=== PATIENT | female | born 1940 | race Caucasian/White ===

== ENCOUNTER 2018-11-19 11:26 | Inpatient (IN) | payer OTHER ==
--- OUTSIDE RECORDS SUMMARY | 2018-11-19 11:32 | XMS REPORT | Continuity of Care Document ---
:1940 Author Organization Interface Problems Problem Status Onset Classification Date Comments Source Date Reported WEAKNESS Active 10/14/[address] WEAKNESS, ORAL Active 10/14/[address] NEUROGENIC Active 08/08/20 [facility] BLADDER 16 F/U Active 10/13/20 [facility] 15 DC F/U Active 10/26/20 [facility] 14 CVA Active 09/21/20 14 [facility] LYLE Active 09/21/20 [facility] [address] URINARY Active 09/21/20 [facility] RETENTION/NEUROG 14 ENIC BLADDER NEUROGENIC Active 09/21/20 [facility] BLADDER/RECURREN 14 T UTI DVT - Deep vein Resolved 10/27/19 Problem 09/11/2017 As per thrombosis<sup>1 01 daughter, pt [facility], </sup> was on [place] experimental Covocative drugs and 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 Gait abnormality Active Problem 09/11/2017 [facility] Abnormal gait Active Problem 09/11/2017 [facility] Afib Resolved Problem 09/11/2017 [facility] Breast cancer Resolved Problem 09/11/2017 [facility] Diabetes Active Problem 09/11/2017 [facility] Fracture<sup>2</ Resolved Problem 09/11/2017 Pt's daughter MH sup> reports that [facility], pt twisted [place] ankle and Medical fractured it Center and fell and fractured wrist. Hypertension Active Problem 09/11/2017 [facility] Neurogenic Active Problem 09/11/2017 [facility] bladder Pneumonia Resolved Problem 09/11/2017 [facility] Pulmonary emboli Resolved Problem 09/11/2017 [facility] Shingles Resolved Problem 09/11/2017 [facility] CVA Active [facility], [facility] FOLLOW-UP EXAM Active [facility] NOS ENCNTR FOR F/U Active [facility] EXAM AFT TRTMT FOR COND O ANOXIC BRAIN Active [facility] DAMAGE, NOT ELSEWHERE CLASS INTCRAN INJ W/O Active [facility] LOSS OF CONSCIOUSNESS, I NEUROMUSCULAR Active [facility] DYSFUNCTION OF BLADDER, UN MALIGNANT Active [place] NEOPLASM OF Medical MOUTH, Center UNSPECIFIED Medications Medication Details Route Status Patient Ordering Order Source Instructions Provider Date Humalog SUB-Q, 0 Active [facility] Refill(s) 2015 Home Medication Refill(s) 0 Active [facility] 2016 NovoLOG 70/30 60 units in am Active [facility] and 40 units at 2016 night, SUB-Q, BID, 0 Refill(s) levothyroxine 88 88 microgram=1 Active [facility] mcg (0.088 mg) tab, PO, Daily, 2016 oral tablet # 30 tab, 0 Refill(s) Unknown Home pro biotic 1 cap Active [facility] Medication bid, Refill(s) 2014 0Special Instructions: pro biotic 1 cap bid [place] oral 1 cap, PO, Active [facility] capsule Daily, 0 2014 Refill(s) Hydralazine 25 mg=1 tab, PO, Active [facility] Hydrochloride 25 PRN, # 120 tab, 2015 MG Oral Tablet 0 Refill(s) Miralax 17 gm, PO, Active [facility] Daily, 0 2014 Refill(s) atorvastatin 10 10 mg=1 tab, PO, Active [facility] mg oral tablet Bedtime, # 30 2015 tab, 0 Refill(s) rivaroxaban 20 20 mg=1 tab, PO, Active [facility] MG Oral Tablet QPM, 0 Refill(s) 2014 [Xarelto] lisinopril 30 mg 30 mg=1 tab, PO, Active [facility] oral tablet Daily, # 30 tab, 2015 0 Refill(s) Levemir 45 Units, SUB-Q, Active [facility] 0 Refill(s) 2014 pantoprazole 40 =1 Pack, PO, Active [facility] MG Granules Daily, # 30 ea, 2015 [Protonix] 0 Refill(s) Omnipaque 300 100 mL, Route: Inactive [facility] Intravesical, 2014 Drug Form: SOLN, ONCE, Start date: 01/16/15 14:15:00, Stop date: 01/16/15 14:15:00Notes: (Same as:Omnipaque 300). Amoxicillin 250 250 mg tab, PO, Active [facility] MG / Clavulanate Daily, # 21 tab, 2015 125 MG Oral 0 Refill(s) Tablet [Augmentin 250-mg] sertraline 25 mg 25 mg=1 tab, PO, Active [facility] oral tablet Daily, # 30 tab, 2015 0 Refill(s) amantadine 50 50 mg=5 ml, PO, Active [facility] mg/5 mL oral Daily, # 140 ml, 2015 syrup 0 Refill(s) 3 ML liraglutide 0 Refill(s) Active [facility] 6 MG/ML 2015 Prefilled Syringe [Victoza] Miralax 17 gm, PEG, Active [facility] Daily, 0 2014 Refill(s) rivaroxaban 20 20 mg=1 tab, On Hold [place] mg oral tablet PEG, QPM, # 30 2014 Medical tab, 0 Refill(s) Center metoprolol 50 mg=1 tab, On Hold [place] tartrate 50 mg PEG, Q12H, # 60 2014 Medical oral tablet tab, 0 Refill(s) Center lisinopril 20 mg 20 mg=1 tab, On Hold [place] oral tablet PEG, Daily, # 30 2014 Medical tab, 0 Refill(s) Center atorvastatin 10 10 mg=1 tab, On Hold [place] mg oral tablet PEG, Bedtime, # 2014 Medical 30 tab, 0 Center Refill(s) fluconazole 40 200 mg=5 mL, On Hold [place] mg/mL oral PEG, [id number], # 2014 Medical liquid 40 mL, 0 Center Refill(s) bisacodyl 10 mg 10 mg=1 supp, On Hold [place] rectal AR, Daily, 2014 Medical suppository Constipation, 0 Center Refill(s) Docusate Sodium 100 mg=10 mL, On Hold [place] 10 MG/ML Oral GT, Q12H, 2014 Medical Solution Constipation, 0 Center Refill(s) Acetaminophen 650 mg=20.3 mL, On Hold [facility] OGT, Q6H, For 2014 Medical Temp > 100.4 F, Center 0 Refill(s) Albuterol 0.833 3 mL, On Hold [facility] MG/ML / INHALATION, Q6H, 2014 Medical Ipratropium Respiratory Center [place] 0.167 Protocol, 0 MG/ML Inhalant Refill(s) Solution [DuoNeb] levothyroxine 112 microgram=1 On Hold [facility] 112 mcg (0.112 tab, PEG, Daily, 2013 Medical mg) oral tablet 0 Refill(s) Center Sodium Chloride 0.09 gm=3 mL, On Hold [facility] 3% inhalation NEB, RQ6H, 0 2013 Medical solution Refill(s) Center Insulin Aspart See Special On Hold [place] 100 unit/ml - Instructions, 2013 Medical (High CD) SUB-Q, Center TID-Before Meals, Check blood sugar before breakfast, lunch, and dinner, and inject correction doses: Inject 3 unit if Sugar 150-199, Inject 6 units if Sugar 200-249, Inject 9 units if Sugar 250-299, Inject 12 units if...Special Instructions: Check blood sugar before breakfast, lunch, and dinner, and inject correction doses: Inject 3 unit if Sugar 150-199, Inject 6 units if Sugar 200-249, Inject 9 units if Sugar 250-299, Inject 12 units if Sugar 300-349, Inject 15 units if Sugar is 350 or more insulin isophane 43 unit, SUB-Q, On Hold [facility] human Q8H, # 1 vial, 0 2013 Medical recombinant 100 Refill(s) Center units/mL subcutaneous injection NPH Insulin, 42 unit, 0.42 Inactive [facility] Pork mL, Route: 2013 Medical SUB-Q, Drug Center form: INJ, Q8H, Dosing Weight 74.2, kg, Start date: 10/05/14 0:00:00, Duration: 14 day, Stop date: 10/18/14 16:00:00Notes: Roll in palms of hands gently; Do not shake vigorously. (Same as: Humulin N) Do not hold insulin without contacting prescriber (Restricted to patients requiring a dose > 60 units) Stable for 28 days at room temperature Expires in days from Da te Docusate 100 mg, 10 mL, No Longer [facility] Route: GT, Drug Active 2013 Medical form: LIQ, Q12H, Center Dosing Weight 74.2, kg, PRN Constipation, Start date: 10/03/14 22:03:46, Stop date: 10/22/14 9:00:00Notes: (Same as: Colace) Insulin, Aspart, 5 unit, 0.05 mL, No Longer [facility] Human Route: SUB-Q, Active 2013 Medical Drug form: SOLN, Center Sliding Scale, Dosing Weight 74.2, kg, PRN Blood Glucose Results, Start date: 10/02/14 17:59:00, Duration: 30 day, Stop date: 11/01/14 17:58:00Notes: Roll in palms of hands gently; Do not shake vigorously. (Same as: NovoLOG) "single patient use only" Stable for 28 days at room temperature. Expires in days from Da te Glucagon 1 mg, Route: IM, No Longer [facility] Drug form: Active 2013 Medical PDR/INJ, PRN, Center Dosing Weight 74.2, kg, PRN Blood Glucose Results, Start date: 10/02/14 17:59:00, Duration: 30 day, Stop date: 11/01/14 17:58:00 Dextrose 50% 25 gm, 50 mL, No Longer [facility] Syringe Route: IVP, Drug Active 2013 Medical Form: INJ, Center Dosing Weight 74.2, kg, PRN, PRN Blood Glucose Results, Start date: 10/02/14 17:59:00, Duration: 30 day, Stop date: 11/01/14 17:58:00 Lisinopril 20 mg, 1 tab, No Longer [facility] Route: PO, Drug Active 2013 Medical form: TAB, Center Daily, Dosing Weight 74.2, kg, Start date: 10/02/14 9:00:00, Duration: 30 day, Stop date: 10/31/14 9:00:00Notes: (Same as: Prinivil, Zestril) Thyroxine 112 microgram, 1 No Longer [facility] tab, Route: PO, Active 2013 Medical Drug form: TAB, Center Daily, Dosing Weight 74.2, kg, Start date: 10/01/14 9:00:00, Duration: 30 day, Stop date: 10/30/14 9:00:00Notes: Take 1 hour before or 2 hours after meal; Enteral feeds may interefere with the absorption of this medication.(Same as:Levothroid) Insulin, Aspart, 9 unit, 0.09 mL, No Longer [facility] Human Route: SUB-Q, Active 2013 Medical Drug form: SOLN, Center Sliding Scale, Dosing Weight 74.2, kg, PRN Blood Glucose Results, Start date: 09/30/14 21:12:00, Duration: 30 day, Stop date: 10/30/14 21:11:00Notes: Roll in palms of hands gently; Do not shake vigorously. (Same as: NovoLOG) "single patient use only" Stable for 28 days at room temperature. Expires in days from Da te Dextrose 50% 12.5 gm, 25 mL, No Longer [facility] Syringe Route: IVP, Drug Active 2013 Medical Form: INJ, Center Dosing Weight 74.2, kg, PRN, PRN Blood Glucose Results, Start date: 09/30/14 21:12:00, Duration: 30 day, Stop date: 10/30/14 21:11:00 Glucagon 1 mg, Route: IM, No Longer [facility] Drug form: Active 2013 Medical PDR/INJ, PRN, Center Dosing Weight 74.2, kg, PRN Blood Glucose Results, Start date: 09/30/14 21:12:00, Duration: 30 day, Stop date: 10/30/14 21:11:00 Fluconazole 200 mg, 5 mL, No Longer 10/01[facility] Route: PEG, Drug Active 2013 Medical form: SUSP, Center [id number], Dosing Weight 74.2, kg, Start date: 09/30/14 21:00:00, Duration: 7 day, Stop date: 10/06/14 21:00:00Notes: (Same as: Diflucan) Lisinopril 10 mg, 1 tab, No Longer [facility] Route: PO, Drug Active 2013 Medical form: TAB, Center Daily, Dosing Weight 74.2, kg, Start date: 09/30/14 18:00:00, Duration: 30 day, Stop date: 10/30/14 9:00:00Notes: (Same as: Prinivil, Zestril) metoprolol 50 mg, 1 tab, No Longer [facility] tartrate Route: PO, Drug Active 2013 Medical form: TAB, Q12H, Center Dosing Weight 74.2, kg, Start date: 09/30/14 18:00:00, Duration: 30 day, Stop date: 10/30/14 9:00:00Notes: (Same as: Lopressor) Xarelto 20 mg, 1 tab, No Longer [facility] Route: PO, Drug Active 2013 Medical form: TAB, QPM, Center Dosing Weight 74.2, kg, Start date: 09/30/14 18:00:00, Duration: 30 day, Stop date: 10/30/14 17:00:00Notes: (Same as: Xarelto) Administer with food Fentanyl 100 microgram, 2 Inactive [place] mL, Route: IV, 2013 Medical Drug form: INJ, Center ONCE, Dosing Weight 74.2, kg, Start date: 09/29/14 15:11:00, Stop date: 09/29/14 15:11:00Notes: (Same as: Sublimaze) Preservative free. Versed 4 mg, 4 mL, Inactive [facility] Route: IVP, Drug 2013 Medical form: INJ, ONCE, Center Dosing Weight 74.2, kg, Start date: 09/29/14 15:10:00, Stop date: 09/29/14 15:10:00Notes: (Same as: Versed) Labetalol 10 mg, 2 mL, No Longer [facility] Route: IVP, Drug Active 2013 Medical form: INJ, Center Q15Min, Dosing Weight 74.2, kg, PRN Hypertension, Start date: 09/29/14 11:02:00, Duration: 3 doses or times, Stop date: Limited # of times Labetalol 10 mg, 2 mL, No Longer [place] Route: IVP, Drug Active 2013 Medical form: INJ, PRN, Center Dosing Weight 74.2, kg, PRN Hypertension, Start date: 09/29/14 10:59:00, Stop date: 10/29/14 10:58:00 normal saline 1,000 mL, Rate: No Longer [place] 0.9% IV 1,000 mL 75 ml/hr, Infuse Active 2013 Medical over: 13.3 hr, Center Route: IV, Dosing Weight 74.2 kg, Total Volume: 1,000, Start date: 09/29/14 10:58:00, Duration: 30 day, Stop date: 10/29/14 10:57:00 Acetylcysteine 600 mg, Route: Inactive [place] 200 MG/ML PO, Drug form: 2013 Medical Inhalant SOLN, BID, Center Solution Dosing Weight 74.2, kg, Start date: 09/27/14 17:00:00, Duration: 2 day, Stop date: 09/29/14 9:00:00 Acetylcysteine 600 mg, 3 ml, No Longer [place] 100 MG/ML Route: NEB, Drug Active 2013 Medical Inhalant Form: SOLN, Center Solution Dosing Weight 74.2, kg, RTID, Start date: 09/27/14 14:00:00, Duration: 30 day, Stop date: 10/27/14 8:00:00 Ceftriaxone 1 gm, Route: IV, No Longer [place] Drug form: Active 2013 Medical PDR/INJ, Center [id number], Dosing Weight 74.2, kg, Start date: 09/27/14 10:00:00, Duration: 30 day, Stop date: 10/26/14 22:00:00 Lasix 20 mg, 2 mL, Inactive [place] Route: IVP, Drug 2013 Medical form: INJ, Center Daily, Dosing Weight 74.2, kg, Start date: 09/27/14 9:00:00, Duration: 30 day, Stop date: 10/26/14 9:00:00Notes: (Same as: Lasix) Lipitor 10 mg, 1 tab, No Longer [facility] Route: PO, Drug Active 2013 Medical form: TAB, Center Bedtime, Dosing Weight 74.2, kg, Start date: 09/26/14 21:00:00, Duration: 30 day, Stop date: 10/25/14 21:00:00Notes: (Same As: Lipitor) Albuterol 0.833 3 ml, Route: No Longer [facility] MG/ML / INHALATION, Drug Active 2013 Medical Ipratropium Form: SOLN, [place] 0.167 Dosing Weight MG/ML Inhalant 74.2, kg, RQ4H, Solution Start date: [DuoNeb] 09/26/14 15:00:00, Duration: 30 day, Stop date: 10/26/14 11:00:00Notes: (Same as: Duoneb) potassium 18 mmol, 6 mL, Inactive [facility] phosphate + Route: IV, ONCE, 2013 Medical Sodium Chloride Start date: [place] 0.9% IV 250 mL 09/26/14 3:30:00, Stop date: 09/26/14 3:30:00Notes: (Same as: K Phosphate.) 1 mMol phoshate has 1.47 mEq potassium Infuse over 4 hours magnesium 2 gm, 50 mL, Inactive [facility] sulfate Route: IVPB, 2013 Medical Drug form: INJ, Center Q2H, Start date: 09/26/14 3:00:00, Duration: 2 doses or times, Stop date: 09/26/14 5:00:00 Fentanyl 25 microgram, Inactive [facility] 0.5 mL, Route: 2013 Medical IV, Drug form: Center INJ, ONCE, Dosing Weight 74.2, kg, Start date: 09/25/14 20:57:00, Stop date: 09/25/14 20:57:00Notes: (Same as: Sublimaze) Preservative free. Lasix 40 mg, 4 mL, Inactive [facility] Route: IV, Drug 2013 Medical form: INJ, ONCE, Center Dosing Weight 74.2, kg, Start date: 09/25/14 16:28:00, Stop date: 09/25/14 16:28:00Notes: (Same as: Lasix) Ceftriaxone 1 gm, Route: No Longer [facility] IVPB, Drug form: Active 2013 Medical PDR/INJ, Center [id number], Dosing Weight 74.2, kg, Start date: 09/25/14 13:00:00, Duration: 30 day, Stop date: 10/24/14 13:00:00Notes: (Same As: Rocephin). Use with 100ml NS mini-bag PLUS and infuse over 30 min NPH Insulin, 10 unit, 0.1 mL, Inactive [facility] Pork Route: SUB-Q, 2013 Medical Drug form: INJ, Center ONCE, Dosing Weight 74.2, kg, Priority: NOW, Start date: 09/25/14 12:27:00, Stop date: 09/25/14 12:27:00Notes: Roll in palms of hands gently; Do not shake vigorously. (Same as: Humulin N) Do not hold insulin without contacting prescriber (Restricted to patients requiring a dose > 60 units) Stable for 28 days at room temperature Expires in days from Da te Lasix 40 mg, 4 mL, Inactive [facility] Route: IV, Drug 2013 Medical form: INJ, ONCE, Center Dosing Weight 74.2, kg, Priority: NOW, Start date: 09/25/14 9:16:00, Stop date: 09/25/14 9:16:00Notes: (Same as: Lasix) NPH Insulin, 45 unit, 0.45 No Longer [facility] Pork mL, Route: Active 2013 Medical SUB-Q, Drug Center form: INJ, Q8H, Dosing Weight 74.2, kg, Start date: 09/25/14 8:00:00, Stop date: 10/09/14 0:00:00Notes: Roll in palms of hands gently; Do not shake vigorously. (Same as: Humulin N) Do not hold insulin without contacting prescriber (Restricted to patients requiring a dose > 60 units) Stable for 28 days at room temperature Expires in days from Da te magnesium 2 gm, 50 mL, Inactive [facility] sulfate Route: IVPB, 2013 Medical Drug form: INJ, Center ONCE, Start date: 09/25/14 4:03:00, Stop date: 09/25/14 4:03:00 Fentanyl 50 microgram, 1 No Longer [facility] mL, Route: IV, Active 2013 Medical Drug form: INJ, Center Q2H, Dosing Weight 74.2, kg, PRN Pain, Start date: 09/25/14 1:49:00, Duration: 30 day, Stop date: 10/25/14 1:48:00Notes: (Same as: Sublimaze) Preservative free. Ibuprofen 20 200 mg, 10 mL, No Longer [place] MG/ML Oral Route: [place], Drug Active 2013 Medical Suspension form: SUSP, Q4H, Center Dosing Weight 74.2, kg, PRN For Temp > 100.4 F, Start date: 09/24/14 19:32:00, Duration: 30 day, Stop date: 10/24/14 19:31:00Notes: (Same as: Motrin Children's, Advil Children's) Take with food. Phosphorus / 36 mmol, 12 mL, Inactive [facility] Potassium Route: IVPB2013 Medical ONCE, Dosing Center Weight 74.2, kg, Start date: 09/24/14 19:00:00, Stop date: 09/24/14 19:00:00Notes: (Same as: K Phosphate.) 1 mMol phoshate has 1.47 mEq potassium Infuse over 4 hours potassium 36 mmol, 12 mL, Inactive [facility] phosphate + Route: IV, ONCE, 2013 Medical Sodium Chloride Start date: Center 0.9% IV 250 mL 09/24/14 18:45:00, Stop date: 09/24/14 18:45:00Notes: (Same as: K Phosphate.) 1 mMol phoshate has 1.47 mEq potassium Infuse over 4 hours Regular Insulin, 7 unit, 0.07 mL, No Longer [place] Human 100 UNT/ML Route: SUB-Q, Active 2013 Medical Injectable Drug form: SOLN, Center Solution PRN, Dosing Weight 74.2, kg, PRN Abnormal Lab Result, Start date: 09/24/14 18:39:00, Duration: 30 day, Stop date: 10/24/14 18:38:00Notes: (Same as: Humulin R) Roll in palms of hands gently; Do not shake vigorously. "single patient use only" (Restricted to patients requiring a dose > 60 units) Stable for 28 days at room temperature Expires in days from Da te Dextrose 50% 6.25 gm, 12.5 No Longer [place] Syringe mL, Route: IVP, Active 2013 Medical Drug Form: INJ, Center Dosing Weight 74.2, kg, PRN, PRN Abnormal Lab Result, Start date: 09/24/14 18:39:00, Duration: 30 day, Stop date: 10/24/14 18:38:00 rivaroxaban 20 20 mg=1 tab, PO, No Longer [facility] MG Oral Tablet Daily, 0 Active 2013 Medical [Xarelto] Refill(s) Center NPH Insulin, 30 unit, 0.3 mL, No Longer [place] Pork Route: SUB-Q, Active 2013 Medical Drug form: INJ, Center Q8H, Dosing Weight 74.2, kg, Priority: NOW, Start date: 09/24/14 15:38:00, Duration: 14 day, Stop date: 10/08/14 8:00:00Notes: Roll in palms of hands gently; Do not shake vigorously. (Same as: Humulin N) Do not hold insulin without contacting prescriber (Restricted to patients requiring a dose > 60 units) Stable for 28 days at room temperature Expires in days from Da te NPH Insulin, 40 unit, 0.4 mL, Inactive [place] Pork Route: SUB-Q, 2013 Medical Drug form: INJ, Center Q8H, Dosing Weight 74.2, kg, Priority: NOW, Start date: 09/24/14 15:26:00, Duration: 14 day, Stop date: 10/08/14 8:00:00Notes: Roll in palms of hands gently; Do not shake vigorously. (Same as: Humulin N) Do not hold insulin without contacting prescriber (Restricted to patients requiring a dose > 60 units) Stable for 28 days at room temperature Expires in days from Da te albumin human 5% 25 gm, 500 mL, 0 Inactive [place] intravenous ml/hr, Route: 2013 Medical solution IV, Drug Form: Center INJ, Dosing Weight 74.2, kg, ONCE, Start date: 09/24/14 4:12:00, Stop date: 09/24/14 4:12:00Notes: LOT#: Mfg: ____ (Same as: Albuminar) "blood product derivative" potassium 20 mEq, 100 mL, Inactive [facility] chloride Route: IVPB2013 Medical Drug form: INJ, Center Q2H, Start date: 09/24/14 4:00:00, Duration: 3 doses or times, Stop date: 09/24/14 8:00:00Notes: (Same as: KCL) Infuse no faster than 10 mEq/hr if given peripherally. sodium phosphate 18 mmol, 6 mL, Inactive [facility] + Sodium Route: IV, ONCE, 2013 Medical Chloride 0.9% IV Start date: Center 250 mL 09/24/14 4:00:00, Stop date: 09/24/14 4:00:00Notes: (Same as: Na Phosphate, Na PO4) magnesium 2 gm, 50 mL, Inactive [facility] sulfate Route: IVPB2013 Medical Drug form: INJ, Center Q2H, Start date: 09/24/14 4:00:00, Duration: 2 doses or times, Stop date: 09/24/14 6:00:00 Albumin Human, 25 gm, 500 mL, Inactive [facility] 50 MG/ML 500 ml/hr, 2013 Medical Injectable Route: IV, Drug Center Solution Form: INJ, Dosing Weight 74.2, kg, ONCE, Start date: 09/24/14 3:52:00, Stop date: 09/24/14 3:52:00Notes: LOT#: Mfg : _ (Same as: Albuminar) "blood product derivative" Benadryl 25 mg, PO, No Longer [facility] Daily, as needed Active 2013 Medical for allergy Center symptoms, 0 Refill(s) Aspirin 81 MG 81 mg=1 tab, PO, No Longer [place] [facility] Coated Daily, # 0 tab, Active 2013 Medical Tablet 0 Refill(s) Center 3 ML liraglutide 1.8 mg, SUB-Q, No Longer [place] 6 MG/ML Daily, 0 Active 2013 Medical Prefilled Refill(s) Center Syringe [Victoza] rivaroxaban 20 0 Refill(s) No Longer [place] MG Oral Tablet Active 2013 Medical [Xarelto] Center ALPRAZOLam 0.5 0.5 mg=1 tab, No Longer [facility] mg oral tablet, PO, TID, for Active 2013 Medical disintegrating anxiety, 0 Center Refill(s) Alprazolam 0.5 mg, PO, No Longer [facility] Bedtime, 0 Active 2013 Medical Refill(s) Center acetaZOLAMIDE 250 mg=2 tab, No Longer [place] 125 mg oral PO, BID, 0 Active 2013 Medical tablet Refill(s) Center atorvastatin 20 20 mg=1 tab, PO, No Longer [facility] mg oral tablet Bedtime, # 30 Active 2013 Medical tab, 0 Refill(s) Center levothyroxine 112 microgram=1 No Longer [place] 112 mcg (0.112 tab, PO, Daily, Active 2013 Medical mg) oral tablet # 30 tab, 0 Center Refill(s) metoprolol 100 100 mg=1 tab, No Longer [place] mg oral tablet, PO, Daily, # 30 Active 2013 Medical extended release tab, 0 Refill(s) Center metoprolol 100 mg, PO, No Longer [facility] extended release Daily, 0 Active 2013 Medical Refill(s) Center Furosemide 20 MG 20 mg=1 tab, PO, No Longer [facility] Oral Tablet Daily, 0 Active 2013 Medical Refill(s) Center lisinopril 5 mg 5 mg=1 tab, PO, No Longer [facility] oral tablet Daily, # 30 tab, Active 2013 Medical 0 Refill(s) Center Vancomycin 1 gm, Route: No Longer [facility] IVPB, Drug form: Active 2013 Medical INJ, [id number], Center Dosing Weight 74.2, kg, Start date: 09/23/14 17:00:00, Duration: 30 day, Stop date: 10/23/14 9:00:00Notes: (Same As: Vancocin) Infusion rate 2001 mg: infuse over 2.5 hours chlorhexidine 15 ml, Route: No Longer [facility] gluconate 1.2 S&SPIT, Q4H, Active 2013 Medical MG/ML Mouthwash Drug form: LIQ, Center Start date: 09/23/14 12:00:00, Duration: 30 day, Stop date: 10/23/14 8:00:00Notes: (Same As: Peridex) NS 1,000 mL 1,000 mL, Rate: No Longer [facility] 100 ml/hr, Active 2013 Medical Infuse over: 10 Center hr, Route: IV, Dosing Weight 74.2 kg, Total Volume: 1,000, Start date: 09/23/14 11:37:00, Duration: 30 day, Stop date: 10/23/14 11:36:00 NS 1000 mL 1,000 mL, Rate: Inactive [facility] 1,000 ml/hr, 2013 Medical Infuse over: 1 Center hr, Route: IV, Dosing Weight 74.2 kg, Total Volume: 1,000, Start date: 09/23/14 11:36:00, Duration: 1 doses or times, Stop date: 09/23/14 12:35:00, Bolus DoseSpecial Instructions: Bolus Dose norepinephrine 234 mL, Rate: No Longer [facility] 16 mg + Sodium Use as directed, Active 2013 Medical Chloride 0.9% Dosing Weight Center (titrate) 234 mL 74.2, kg, Route: IV, Total Volume: 250 mL, Start Date: 09/23/14 11:15:00, Duration: 30 day, Stop date: 10/23/14 11:14:00, Replace Every: 24 hrNotes: Not for direct administration - DILUTE. Protect from light. (Same as:Levophed). Administer by either central venous catheter or peripherally-ins erted central catheter (PICC) line. Albumin Human, 25 gm, 500 mL, Inactive [place] [facility] 50 MG/ML 500 ml/hr, 2013 Medical Injectable Route: IV, Drug Center Solution Form: INJ, Dosing Weight 74.2, kg, ONCE, Start date: 09/23/14 10:35:00, Stop date: 09/23/14 10:35:00Notes: LOT#: Mfg: ____ (Same as: Albuminar) "blood product derivative" Vancomycin 1 gm, Route: Inactive [facility] IVPB, Drug form: 2013 Medical INJ, [id number], Center Dosing Weight 74.2, kg, Start date: 09/23/14 9:00:00, Duration: 30 day, Stop date: 10/22/14 21:00:00Notes: (Same As: Vancocin) Infusion rate 2001 mg: infuse over 2.5 hours cefepime 1 gm, Route: No Longer [facility] IVPB, Drug form: Active 2013 Medical INJ, [id number], Center Dosing Weight 74.2, kg, (CrCl >/=50 ml/min), Start date: 09/23/14 9:00:00, Duration: 30 day, Stop date: 10/23/14 1:00:00Notes: (Same As: Maxipime) Ranitidine 15 150 mg, 10 mL, No Longer [facility] MG/ML Oral Route: NG, Drug Active 2013 Medical Solution form: SYRP, Center [Zantac] Q12H, Dosing Weight 74.2, kg, Start date: 09/23/14 9:00:00, Duration: 30 day, Stop date: 10/22/14 21:00:00Notes: (Same as:Zantac) Non-Formulary Item Take before or with meals Metoprolol 2.5 mg, 2.5 mL, No Longer [facility] Route: IV, Drug Active 2013 Medical form: INJ, BID, Center Dosing Weight 74.2, kg, Start date: 09/23/14 9:00:00, Duration: 1 day, Stop date: 09/23/14 17:00:00Notes: (Same as: Lopressor) Push over 2 minutes metoprolol 25 mg, 1 tab, Inactive [facility] tartrate Route: PO, Drug 2013 Medical form: TAB, Q12H, Center Dosing Weight 74.2, kg, Start date: 09/23/14 9:00:00, Duration: 30 day, Stop date: 10/22/14 21:00:00Notes: (Same as: Lopressor) Metoprolol 5 mg, 5 mL, Inactive [facility] Route: IV, Drug 2013 Medical form: INJ, ONCE, Center Dosing Weight 74.2, kg, Priority: STAT, Start date: 09/23/14 2:06:00, Stop date: 09/23/14 2:06:00Notes: (Same as: Lopressor) Push over 2 minutes Albumin Human, 25 gm, 500 mL, Inactive [facility] 50 MG/ML 500 ml/hr, 2013 Medical Injectable Route: IV, Drug [place] Solution Form: INJ, Dosing Weight 74.2, kg, ONCE, Start date: 09/23/14 2:05:00, Stop date: 09/23/14 2:05:00Notes: LOT#: Mfg : _ (Same as: Albuminar) "blood product derivative" Sodium Chloride 3 mL, Route: No Longer [facility] 3% inhalation NEB, Drug Form: Active 2013 Medical solution SOLN, Dosing Center Weight 74.2, kg, RQ6H, STAT, Start date: 09/23/14 2:04:00, Stop date: 10/23/14 2:00:00Notes: SEE RT DOCUMENTATION (Same as: Hypertonic Saline 3%, Inhalation) Ondansetron 4 mg, 2 mL, Inactive [facility] Route: IVP, Drug 2013 Medical form: INJ, ONCE, Center Dosing Weight 74.2, kg, Start date: 09/23/14 0:30:00, Stop date: 09/23/14 0:30:00Notes: (Same as: Zofran) Insulin regular 99 mL, Rate: No Longer [facility] 100 unit + Start at 0.05 Active 2013 Medical Sodium Chloride units/kg/hour-, Center 0.9% (titrate) Dosing Weight 99 mL 74.2, kg, Route: IVPB, Total Volume: 100, Start Date: 09/23/14 0:07:00, Duration: 30 day, Stop date: 10/23/14 0:06:00, Replace Every: 24 hrNotes: (Same as: Humulin R and NovoLIN R) (Do not shake) Dextrose 50% 12.5 gm, 25 mL, No Longer [facility] Syringe Route: IVP, Drug Active 2013 Medical Form: INJ, Center Dosing Weight 74.2, kg, PRN, PRN Abnormal Lab Result, Start date: 09/23/14 0:07:00, Duration: 30 day, Stop date: 10/23/14 0:06:00 potassium 20 mEq, 100 mL, Inactive [facility] chloride Route: IVPB2013 Medical Drug form: INJ, Center Q2H, Start date: 09/23/14 0:00:00, Duration: 2 doses or times, Stop date: 09/23/14 2:00:00Notes: (Same as: KCL) Infuse no faster than 10 mEq/hr if given peripherally. magnesium 2 gm, 50 mL, Inactive [facility] sulfate Route: IVPB2013 Medical Drug form: INJ, Center ONCE, Start date: 09/22/14 23:00:00, Stop date: 09/22/14 23:00:00 calcium 3,000 mg, 30 mL, Inactive [facility] gluconate + Route: IV, ONCE, 2013 Medical Sodium Chloride Start date: Center 0.9% IV 100 mL 09/22/14 23:00:00, Stop date: 09/22/14 23:00:00 aspirin 325 mg, 1 tab, No Longer [facility] Route: PO, Drug Active 2013 Medical form: TAB, Center Daily, Dosing Weight 74.2, kg, Start date: 09/22/14 21:00:00, Duration: 30 day, Stop date: 10/22/14 9:00:00Notes: Take with food. Lipitor 20 mg, 1 tab, No Longer [facility] Route: PO, Drug Active 2013 Medical form: TAB, Center Bedtime, Dosing Weight 74.2, kg, Start date: 09/22/14 21:00:00, Duration: 30 day, Stop date: 10/21/14 21:00:00Notes: (Same As: Lipitor) Docusate 100 mg, 10 mL, No Longer [facility] Route: GT, Drug Active 2013 Medical form: LIQ, Q12H, Center Dosing Weight 74.2, kg, Start date: 09/22/14 21:00:00, Duration: 30 day, Stop date: 10/22/14 9:00:00Notes: (Same as: Colace) Acetaminophen 1,000 mg, 100 Inactive [place] mL, Route: IV, 2013 Medical Drug form: INJ, Center ONCE, Dosing Weight 74.2, kg, Priority: STAT, Start date: 09/22/14 20:17:00, Stop date: 09/22/14 20:17:00Notes: Infuse over 15 minutes Do not exceed 4gm/day of acetaminophen NPH Insulin, 8 unit, 0.08 mL, No Longer [facility] Pork Route: SUB-Q, Active 2013 Medical Drug form: INJ, Center Q8H, Dosing Weight 74.2, kg, Start date: 09/22/14 18:00:00, Duration: 30 day, Stop date: 10/22/14 16:00:00Notes: Roll in palms of hands gently; Do not shake vigorously. (Same as: Humulin N) Do not hold insulin without contacting prescriber (Restricted to patients requiring a dose > 60 units) Stable for 28 days at room temperature Expires in days from Da te Albuterol 0.833 3 ml, Route: No Longer [facility] MG/ML / INHALATION, Drug Active 2013 Medical Ipratropium Form: SOLN, Center [place] 0.167 Dosing Weight MG/ML Inhalant 74.2, kg, Q6H, Solution PRN Respiratory [DuoNeb] Protocol, Start date: 09/22/14 17:37:00, Duration: 30 day, Stop date: 10/22/14 17:36:00Notes: (Same as: Duoneb) Lasix 40 mg, Route: Inactive [facility] IVP, Drug form: 2013 Medical INJ, ONCE, Center Dosing Weight 74.2, kg, Priority: STAT, Start date: 09/22/14 17:35:00, Stop date: 09/22/14 17:35:00 heparin, porcine 5,000 unit, 1 No Longer [facility] mL, Route: Active 2013 Medical SUB-Q, Drug Center form: INJ, Q8H, Dosing Weight 74.2, kg, Start date: 09/22/14 16:00:00, Duration: 30 day, Stop date: 10/22/14 8:00:00Notes: porcine heparin heparin sodium, 5,000 unit, Inactive [facility] porcine 2500 Route: SUB-Q, 2013 Medical UNT/ML Drug form: INJ, Center Injectable Q8H, Dosing Solution Weight 74.2, kg, Start date: 09/22/14 16:00:00, Duration: 30 day, Stop date: 10/22/14 8:00:00 Bisacodyl 10 mg, 1 supp, No Longer [facility] Route: AR, Drug Active 2013 Medical form: SUPP, Center Daily, Dosing Weight 74.2, kg, PRN Constipation, Start date: 09/22/14 15:22:00, Duration: 30 day, Stop date: 10/22/14 15:21:00Notes: (Same As: Dulcolax, Bisco-Lax) Metoclopramide 10 mg, 2 mL, No Longer [facility] Route: IVP, Drug Active 2013 Medical form: INJ, Q6H, Center Dosing Weight 74.2, kg, PRN Other -See Comment, Start date: 09/22/14 15:22:00, Duration: 5 day, Stop date: 09/27/14 15:21:00Notes: (Same as: Reglan) Labetalol 10 mg, 2 mL, No Longer [facility] Route: IVP, Drug Active 2013 Medical form: INJ, Center Q15Min, Dosing Weight 74.2, kg, PRN Hypertension, Start date: 09/22/14 15:03:00, Duration: 3 doses or times, Stop date: Limited # of times Metoprolol 2.5 mg, 2.5 mL, Inactive [facility] Route: IVP, Drug 2013 Medical form: INJ, ONCE, Center Dosing Weight 74.2, kg, Priority: STAT, Start date: 09/22/14 15:02:00, Stop date: 09/22/14 15:02:00Notes: (Same as: Lopressor) Push over 2 minutes Lisinopril 5 mg, 1 tab, No Longer [facility] Route: PO, Drug Active 2013 Medical form: TAB, Center Daily, Dosing Weight 74.2, kg, Priority: NOW, Start date: 09/22/14 15:00:00, Duration: 30 day, Stop date: 10/22/14 9:00:00Notes: (Same as: Prinivil, Zestril) Lasix 40 mg, 4 mL, Inactive [place] Route: IVP, Drug 2013 Medical form: INJ, ONCE, Center Dosing Weight 74.2, kg, Start date: 09/22/14 11:51:00, Stop date: 09/22/14 11:51:00Notes: (Same as: Lasix) sennosides, [facility] 26.4 mg, 15 ml, No Longer [facility] Route: NG, Drug Active 2013 Medical Form: SYRP, Center Dosing Weight 74.2, kg, Q12H, Start date: 09/22/14 9:00:00, Duration: 30 day, Stop date: 10/21/14 21:00:00Notes: (Same as: Senokot) Saline Flush 10 ml, Route: No Longer [facility] 0.9% IVP, Drug Form: Active 2013 Medical INJ, Dosing Center Weight 76, kg, Q12H, Start date: 09/22/14 9:00:00, Duration: 30 day, Stop date: 10/21/14 21:00:00Notes: (Same as: BD Posiflush) magnesium 2 gm, 50 mL, Inactive [facility] sulfate Route: IVPB, 2013 Medical Drug form: INJ, Center Q2H, Start date: 09/22/14 8:00:00, Duration: 2 doses or times, Stop date: 09/22/14 10:00:00 Ceftriaxone 1 gm, Route: No Longer [facility] IVPB, Drug form: Active 2013 Medical PDR/INJ, Center [id number], Dosing Weight 74.2, kg, Start date: 09/22/14 8:00:00, Duration: 30 day, Stop date: 10/21/14 8:00:00Notes: (Same As: Rocephin). Use with 100ml NS mini-bag PLUS and infuse over 30 min lansoprazole 30 mg, 10 mL, No Longer [facility] Route: NG, Drug Active 2013 Medical form: SUSP, Center Before Breakfast, Dosing Weight 74.2, kg, Start date: 09/22/14 7:30:00, Duration: 30 day, Stop date: 10/21/14 7:30:00Notes: Take 1 hour before or 2 hours after meal; Expires in 14 days. Shake well before use. (Same as:Prevacid) Compounded Product - formulation not commercially available chlorhexidine 15 ml, Route: Inactive [facility] gluconate 1.2 S&SPIT, Q4H, 2013 Medical MG/ML Mouthwash Drug form: LIQ, Center Start date: 09/22/14 4:00:00, Duration: 30 day, Stop date: 10/22/14 0:00:00Notes: (Same As: Peridex) Acetaminophen 650 mg, 20.3 mL, No Longer [facility] Route: OGT, Drug Active 2013 Medical form: LIQ, Q6H, Center Dosing Weight 74.2, kg, PRN For Temp > 100.4 F, Start date: 09/22/14 2:36:00, Duration: 30 day, Stop date: 10/22/14 2:35:00Notes: Max acetaminophen=40 00mg/day (4 gm/day). (Same as: Tylenol) Docusate 100 mg, 10 mL, No Longer [facility] Route: NG, Drug Active 2013 Medical form: LIQ, Q12H, Center Dosing Weight 74.2, kg, PRN Constipation, Start date: 09/22/14 2:12:00, Duration: 30 day, Stop date: 10/22/14 2:11:00Notes: (Same as: Colace) Sodium Chloride 500 mL, 500 Inactive [facility] 0.154 MEQ/ML ml/hr, Infuse 2013 Medical Injectable Over: 1 hr, Center Solution Route: IV, 500, Drug form: INJ, ONCE, Priority: STAT, Dosing Weight 74.2 kg, Start date: 09/22/14 1:46:00, Duration: 1 doses or times, Stop date: 09/22/14 1:46:00 NS 1,000 mL 1,000 mL, Rate: Inactive [facility] 75 ml/hr, Infuse 2013 Medical over: 13.3 hr, Center Route: IV, Dosing Weight 74.2 kg, Total Volume: 1,000, Start date: 09/22/14 1:46:00, Duration: 30 day, Stop date: 10/22/14 1:45:00 Dextrose 50% 6.25 gm, 12.5 No Longer [facility] Syringe mL, Route: IVP, Active 2013 Medical Drug Form: INJ, Center Dosing Weight 74.2, kg, PRN, PRN Abnormal Lab Result, Start date: 09/22/14 1:43:00, Duration: 30 day, Stop date: 10/22/14 1:42:00 Regular Insulin, 3 unit, 0.03 mL, No Longer [facility] Human 100 UNT/ML Route: SUB-Q, Active 2013 Medical Injectable Drug form: SOLN, Center Solution PRN, Dosing Weight 74.2, kg, PRN Abnormal Lab Result, Start date: 09/22/14 1:43:00, Duration: 30 day, Stop date: 10/22/14 1:42:00Notes: (Same as: Humulin R) Roll in palms of hands gently; Do not shake vigorously. "single patient use only" (Restricted to patients requiring a dose > 60 units) Stable for 28 days at room temperature Expires in days from Da te atorvastatin 80 mg, 1 tab, Inactive [facility] Route: PO, Drug 2013 Medical form: TAB, Center Bedtime, Dosing Weight 76, kg, Priority: NOW, Start date: 09/22/14 0:08:00, Duration: 30 day, Stop date: 10/21/14 21:00:00Notes: Same as Lipitor Saline Flush 10 ml, Route: No Longer [facility] 0.9% IVP, Drug Form: Active 2013 Medical INJ, Dosing Center Weight 76, kg, PRN, PRN Line Flush, Start date: 09/21/14 22:37:00, Duration: 30 day, Stop date: 10/21/14 22:36:00Notes: (Same as: BD Posiflush) Cardene 40 mg in 40 mg, 200 mL, No Longer [place] NS 200 ml IV 40 Rate: Titrate, Active 2013 Medical mg Dosing Weight Center 76, kg, Route: IV, Total Volume: 200 mL, Start Date: 09/21/14 22:16:00, Duration: 30 day, Stop date: 10/21/14 22:15:00, Replace Every: 24 hrNotes: Same as: Cardene Concentration: (0.2 mg /1 ml ) Saline Flush 10 mL, Route: No Longer [facility] 0.9% IVP, Drug Form: Active 2013 Medical INJ, kg, PRN, Center PRN Line Flush, Start date: 09/21/14 20:48:00, Duration: 30 day, Stop date: 10/21/14 20:47:00Notes: (Same as: BD Posiflush) Propofol 10 10,000 mg, 1,000 No Longer [place] MG/ML Injectable mL, Rate: Active 2013 Medical Suspension Titrate, Route: Center IV, Total Volume: 1,000, Start date: 09/21/14 20:48:00, Duration: 30 day, Stop date: 10/21/14 20:47:00, Replace Every: 12 hrNotes: If Diprivan - change bottle & tubing every 12 hr Per state nursing law propofol can only be given by a nurse if patient is intubated or being intubated (unless the nurse is a TECHNICAL SERVICES ASSISTANT). Same as: Diprivan Allergies, Adverse Reactions, Alerts Substance Category Reaction Severity Reaction Status Date Comments Source type Reported codeine Assertion Drug Active [facility] allergy Demerol HCl Assertion Drug Active [facility] allergy Food Assertion Drug Active [facility] Shellfish allergy iodine Assertion Drug Active [facility] allergy Immunizations Immunization Date Given Site Status Last Updated Comments Source Results Order Name Results Value Reference Date Interpretation Comments Source Range Brain wo Brain wo EXAM: CT BRAIN WITHOUT CONTRAST 10/15 - [facility] contrast CT contrast CT /2018 - Medical This report was dictated by a Vtc Technician/Fellow/Physician Adult Education Manager. I have personally Center reviewed the images as well as the interpretation and agree with the findings. DATE: 10/15/2018 6:59 MEDICAL SERVICE TECHNICIAN Read by: Adam Lora MD Resident/Fellow/Physician Adult Education Manager: Adam Lora MD Dictated Date/time: 10/15/18 08:21 Electronically Signed by: Lisbeth Graham MD 10/15/18 13:41 FINAL REPORT INDICATION: "weakness" COMPARISON: Multiple studies dating back from 09/21/2014. The most recent is a brain without contrast magnetic resonance imaging 09/23/2014. TECHNIQUE: Noncontrast axial imaging of the brain was acquired from the vertex to the skull base. DLP: 751 mGy-cm FINDINGS: No acute intracranial hemorrhage or extra-axial collection. Unremarkable attenuation of the brain parenchyma. No hydrocephalus, midline shift, or herniation. No extension of previously described left jessica-pontine infarct. 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 Hyperdense 6 mm rounded focus at the foramen of Ledbetter is unchanged and likely represents a colloid cyst. No change in ventricular caliber. Calvarium and skull base are intact. IMPRESSION: 1. No acute intracranial abnormality. 2. Remote prior left jessica-pontine infarct. 3. Unchanged 6 mm colloid cyst. No hydrocephalus. 4. Chronic volume loss and microvascular ischemic changes. Abdomen/Pel Abdomen/Pelvi EXAM: CT ABDOMEN AND PELVIS WITHOUT CONTRAST [facility] vis wo IV s wo IV /2017 - Medical contrast CT contrast CT This report was dictated by a Vtc Technician/Fellow/Physician Adult Education Manager. I have personally Center reviewed the images as well as the interpretation and agree with the findings. 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 Present with weakness nausea vomiting. History of esophageal stricture status post dilatation x3. COMPARISON: None. TECHNIQUE: Volumetric CT of the abdomen and pelvis is acquired without intravenous contrast. Axial, coronal and sagittal images are provided. IV contrast: None. Enteric contrast: None. DLP: 667 mGy-cm FINDINGS: Lines, tubes and hardware: None. Lower thorax: Mild bibasilar dependent atelectasis. Small hiatal hernia. Liver: Normal. Biliary tree: No intra- or extrahepatic biliary ductal dilation. Gallbladder: Layering hyperdensity within the gallbladder lumen, may represent biliary sludge or cholelithiasis. No evidence of pericholecystic fluid or gallbladder wall thickening to suggest acute cholecystitis. Pancreas: Normal. Spleen: Normal. Adrenals: Thickened and nodular left adrenal gland. Kidneys and ureters: Evaluation of the kidneys is limited due to lack of contrast. There is symmetric bilateral perinephric fat stranding likely consistent with medical renal disease. No nephrolithiasis or hydronephrosis. Bladder: Small amount of free air within the urinary bladder, likely related to recent catheterization. Reproductive organs: Normal. Left indirect inguinal hernia. Gastrointestinal tract: Stomach: Normal. Small bowel: Normal. Colon: Moderate colonic stool burden. Diverticulosis without CT evidence of diverticulitis. Appendix: Normal. Peritoneum, mesentery and retroperitoneum: No free air, ascites or loculated fluid. Lymph nodes: Normal. Vasculature: Aorta and branches: Extensive diffuse atherosclerotic disease including partially visualized coronary atherosclerotic disease. IVC and veins: Patent. Portal vasculature: Normal. Bones: Multilevel degenerative changes of the lower thoracic and lumbar spine. Age-related degenerative findings. Soft tissues: Normal. IMPRESSION: Examination is limited secondary to lack of IV contrast. 1. No finding to explain abdominal pain. 2. Cholelithiasis. 3. Diverticulosis without CT evidence of diverticulitis. 4. Extensive severe diffuse atherosclerotic disease including partially visualized coronary atherosclerotic disease. 5. Multilevel degenerative changes of the visualized lower thoracic and lumbar spine. Chest 1view Chest 1view EXAM: XR CHEST 1 VIEW 10/14 - [facility] DX DX /2018 - Medical This report was dictated by a Vtc Technician/Fellow/Physician Adult Education Manager. I have personally Center reviewed the images as well as the interpretation and agree with the findings. DATE: 10/14/2018 22:50 MEDICAL SERVICE TECHNICIAN Read by: Kevon Zepeda MD Resident/Fellow/Physician Adult Education Manager: Kevon Zepeda MD Dictated Date/time: 10/14/18 22:59 Electronically Signed by: Chris Andrade MD 10/15/18 00:39 FINAL REPORT INDICATION: - cough COMPARISON: Chest x-ray 10/01/2014 TECHNIQUE: AP semierect chest. UT SECTION: ER FINDINGS: Lines, tubes and hardware: None. Lungs and pleura: Trace left pleural effusion or pleural thickening. No right-sided pleural effusion seen. No pneumothorax seen. Resolution of the previously identified triangular shaped opacity along t he medial left lung base, likely representing decreased atelectasis. However there are persistent bibasilar linear streaky opacities. Heart and mediastinum: The heart size is normal for technique. The mediastinal contours are normal. Bones: No acute abnormality. IMPRESSION: 1. Decreased left lower lobe atelectasis with decreased size of the suspected left pleural effusion. However persistent bibasilar streaky opacities could represent residual atelectasis or pneumonia. Abdomen AP Abdomen AP EXAM: Abdomen x-ray. 11/01 - [facility] view view /2014 - DATE: 11/01/2014 Read by: Donita Gramajo MD Dictated Date/time: 11/01/14 10:34 Electronically Signed by: Donita Gramajo MD 11/01/14 10:35 FINAL REPORT INDICATIONS: Constipation. COMPARISON: Abdomen x-ray from 2013. FINDINGS: Residual contrast within the stomach from recent modified barium swallow. A PEG tube is seen. Degenerative changes involving the thoracolumbar spine. No small bowel dilation. Mild colonic stool burden. IMPRESSION: Mild colonic stool burden in a nonobstructive pattern. Esophagus Esophagus BA EXAM: Esophagus BA swallow w function Rehab 11/01 - [facility] BA swallow swallow w /2014 - w function function Rehab DX Rehab DX DATE: 11/01/2013 . Read by: Donita Gramajo MD Dictated Date/time: 11/01/14 10:26 Electronically Signed by: Donita Gramajo MD 11/01/14 10:33 FINAL REPORT INDICATION: Dysphagia . COMPARISON: None TECHNIQUE: Video fluoroscopy was performed in the lateral projection with the patient sitting upright. Oral barium contrast of various consistencies was given to the patient to assess swallowing functi on. The study was performed in the presence of speech pathology. FLUOROSCOPY TIME: 2 minutes 44 seconds. DISCUSSION: The patient was given honey consistency contrast by cup demonstrating premature spillage the flash penetration without any deep penetration or aspiration. Trace vallecular residue. The patient was then given nectar consistency by spoon with and without 3 seconds hold technique demonstrating flash penetration. Patient was then given nectar consistency contrast by cup demonstrating silent aspiration with tracheal residue. Patient was then given thin consistency contrast by spoon demonstrating deep penetration. The patient was then given thin consistency contrast by cup demonstrating silent aspiration. The patient was then given a cookie coated with barium demonstrating no penetration or aspiration. Trace vallecular residue. Cervical esophageal motility and emptying appeared normal. IMPRESSION: 1. Silent aspiration with thin and nectar consistencies administered by cup. 2. Flash penetration with nectar consistency administered by spoon. 3. Deep penetration with thin consistency contrast administered by spoon. 4. Flash penetration with honey consistency contrast administered by cup. 5. No penetration or aspiration with solid consistency. Please refer to the speech therapist's report for specific dietary recommendations. - Esophagus Esophagus BA EXAM: Esophagus BA swallow w function Rehab 10/18 - [facility] BA swallow swallow - w function function Rehab DX Rehab DX DATE: Oct 18, 2014 . Read by: Donita Gramajo MD Dictated Date/time: 10/18/14 09:40 Electronically Signed by: Donita Gramajo MD 10/18/14 09:52 FINAL REPORT INDICATION: Dysphagia . ADDITIONAL HISTORY:Pontine stroke TECHNIQUE: Video fluoroscopy was performed in the lateral projection with the patient sitting upright. Oral barium contrast of various consistencies was given to the patient to assess swallowing functi on. The study was performed in the presence of speech pathology. FLUOROSCOPY TIME: 3 minutes 46 seconds. DISCUSSION: The patient was given nectar consistency contrast by spoon of one half teaspoon volume, demonstrating a normal oral swallowing phase with normal motor function. There was a slight delay in triggering o f the swallowing reflex with mild pooling into the valleculae and pyriform sinuses. Mild residue is seen. Silent aspiration is seen. The patient was given honey consistency contrast by spoon of half teaspoon volume followed by full teaspoon volume and followed by cup(self administered) demonstrating similar swallowing findings wit h mild vallecular and pyriform sinuses residue. No penetration or aspiration. The patient was given pure consistency contrast, apple sauce, by spoon of half teaspoon volume followed by full teaspoon volume demonstrating mild vallecular and pyriform sinuses residue. No penetration or aspiration. The patient was given a barium pudding coated cookie demonstrating gradual mastication and subsequent small volume swallows with moderate vallecular and pyriform sinuses residue. Patient was able to izzy ar residue with a honey consistency wash given by cup. Subsequently VitalStim was turned on and nectar consistency contrast was given half teaspoon volume followed by full teaspoon volume demonstrating minimal vallecular and pyriform sinuses residue with d eep penetration with full teaspoon volume. Pure consistency was also given with VitalStim on demonstrating minimal residue without any penetration or aspiration. Cervical esophageal motility and emptying appeared normal. IMPRESSION: 1. Silent aspiration with nectar consistency contrast given by spoon without VitalStim. 2. Deep penetration with nectar consistency contrast given by spoon with VitalStim. 3. No penetration or aspiration with honey, pure and solid consistencies. 4. Mild vallecular and pyriform sinuses residue noted during swallowing of thin, nectar, pure and solid consistencies. Please refer to the speech therapist's report for specific dietary recommendations. - HEMATOLOGY PB Smear Path Review of 10/05 [facility] blood [place] smear and CBC results shows mild normocytic normochrom ic anemia with slight anisocytos is and increased polychroma jose c; mild leukocytos is with left shift, neutrophil ia, monocytosi s, and eosinophil ia; marked thrombocyt osis with occasional large platelets. Impression :The marked thrombocyt osis in this patient with recent stroke and UTI infection may be reactive. However, clinical correlatio n and follow-up are required. If the thrombocyt osis is persistent and unexplaine d, recommend further studies.CP T 60120 HEMATOLOGY Polychrom Moderate None Seen 10/04 [facility] *[facility]* Center (10/04/14 1:10 PM) HEMATOLOGY Monocytes 7.2 % 2.0 - 12.0 10/04 [facility] HEMATOLOGY Eosinophils 6.1 % 0.0 - 4.0 10/04 [facility] HEMATOLOGY Lymphocytes 16.8 % 20.0 - 10/04 [facility] 40.0 [facility] HEMATOLOGY Segs-Bands # 14.6 K/CMM 1.5 - 8.1 10/04 [facility] HEMATOLOGY Basophils 1.3 % 0.0 - 1.0 10/04 [facility] HEMATOLOGY Segs 68.6 % 45.0 - 10/04 75.0 /2013 [facility] HEMATOLOGY Basophils # 0.3 K/CMM 0.0 - 0.2 10/04 [facility] HEMATOLOGY Eosinophils # 1.3 K/CMM 0.0 - 0.5 10/04 [facility] HEMATOLOGY Lymphocytes # 3.6 K/CMM 1.0 - 5.5 10/04 [facility] HEMATOLOGY Monocytes # 1.5 K/CMM 0.0 - 0.8 10/04 [facility] HEMATOLOGY MCH 31.7 pg 27.0 - 10/04 [facility] 31.0 [facility] HEMATOLOGY RBC 3.05 M/CMM 4.20 - 10/04 5.40 /2013 [facility] HEMATOLOGY MCHC 33.6 g/dL 32.0 - 10/04 36.0 [facility] HEMATOLOGY RDW 13.3 % 11.5 - 10/04 14.5 [facility] HEMATOLOGY Platelet 854 K/CMM 133 - 450 10/04 [facility] HEMATOLOGY MPV 7.3 fL 7.4 - 10.4 10/04 [facility] HEMATOLOGY MCV 94.4 fL 80.0 - 10/04 98.0 [facility] HEMATOLOGY Hgb 9.7 g/dL 12.0 - 10/04 16.0 [facility] HEMATOLOGY Hct 28.8 % 36.0 - 10/04 48.0 [facility] HEMATOLOGY WBC 21.3 K/CMM 3.7 - 10.4 10/04 [facility] LIPIDS LDL Direct 44 mg/dL <=99 mg/dL 10/03 [facility] CHEM PANEL Magnesium Lvl 1.7 mg/dL 1.8 - 2.4 10/02 [facility] CHEM PANEL eGFR 89 10/02 1Result Comment: The eGFR is calculated using the CKD-EPI formula. In most young, healthy individuals the eGFR will be >90 mL/ min/1.73m2. The eGFR declines with age. An eGFR of 60-89 may be normal in [facility] mL/min/1. some populations, particularly the elderly, for whom the CKD-EPI formula has not been extensively validated. Use of the eGFR is not recommended in the following populations: [address] Individuals with unstable creatinine concentrations, including patients and those with serious co-morbid conditions. Patients with extremes in muscle mass or diet. The data above are obtained from the National Kidney Disease Education Program (NKDEP) which additionally recommends that when the eGFR is used in patients with extremes of body mass index for purposes of drug dosing, the eGFR should be multiplied by the estimated BMI. CHEM PANEL Calcium Lvl 7.6 mg/dL 8.5 - 10.5 10/02 [facility] CHEM PANEL CO2 19 meq/L 24 - 32 10/02 [facility] CHEM PANEL AGAP 16.9 meq/L 10.0 - 10/02 20.0 [facility] CHEM PANEL Chloride Lvl 112 meq/L 95 - 109 10/02 [facility] CHEM PANEL Potassium Lvl 3.9 meq/L 3.5 - 5.1 10/02 [facility] CHEM PANEL Sodium Lvl 144 meq/L 135 - 145 10/02 [facility] CHEM PANEL Creatinine 0.6 mg/dL 0.5 - 1.4 10/02 [facility] CHEM PANEL BUN 19 mg/dL 7 - 22 10/02 [facility] CHEM PANEL Glucose Lvl 102 mg/dL 70 - 99 10/02 4Interpretive Data: Adult reference range values reflect the clinical guidelines of the [place] [employer]. [facility] HEMATOLOGY MCHC 33.1 g/dL 32.0 - 10/02 36.0 [facility] HEMATOLOGY RDW 13.0 % 11.5 - 10/02 14.5 [facility] HEMATOLOGY Hct 25.5 % 36.0 - 10/02 48.0 [facility] HEMATOLOGY MCV 94.2 fL 80.0 - 10/02 [facility] 98.0 [facility] HEMATOLOGY MCH 31.2 pg 27.0 - 10/02 31.0 [facility] HEMATOLOGY RBC 2.71 M/CMM 4.20 - 10/02 [facility] 5.40 /2013 [facility] HEMATOLOGY Hgb 8.5 g/dL 12.0 - 10/02 [facility] 16.0 [facility] HEMATOLOGY Platelet 724 K/CMM 133 - 450 10/02 [facility] HEMATOLOGY MPV 6.7 fL 7.4 - 10.4 10/02 [facility] HEMATOLOGY WBC 21.0 K/CMM 3.7 - 10.4 10/02 [facility] HEMATOLOGY Myelocytes 2.0 % <=0.0 % 10/02 [facility] HEMATOLOGY Atypical 0.0 % <=0.0 % 10/02 [facility] Lymph [facility] HEMATOLOGY Hypochrom 1+ None Seen 10/02 [facility] (10/02/14 4:53 AM) [place] HEMATOLOGY Polychrom Moderate None [facility]10[facility] 4[facility]53 AM[facility] HEMATOLOGY Rouleaux Present None [facility]en 10[facility] (10/02/14 4:53 AM) HEMATOLOGY Eosinophils 4.0 % 0.0 - 4.0 10/02 [facility] HEMATOLOGY Basophils 1.0 % 0.0 - 1.0 10/02 [facility] HEMATOLOGY Metamyelocyte 2.0 % 0.0 - 1.0 10/02 [facility] s [facility] HEMATOLOGY Basophils # 0.2 K/CMM 0.0 - 0.2 10/02 [facility] HEMATOLOGY Segs 64.0 % 45.0 - 10/02 [facility] 75.0 /2014 [facility] HEMATOLOGY Bands 6.0 % 0.0 - 11.0 10/02 [facility] HEMATOLOGY Lymphocytes 16.0 % 20.0 - 10/02 [place] 40.0 [facility] HEMATOLOGY Monocytes 5.0 % 2.0 - 12.0 10/02 [facility] HEMATOLOGY Segs-Bands # 14.7 K/CMM 1.5 - 8.1 10/02 [facility] HEMATOLOGY Lymphocytes # 3.4 K/CMM 1.0 - 5.5 10/02 [facility] HEMATOLOGY Monocytes # 1.0 K/CMM 0.0 - 0.8 10/02 [facility] HEMATOLOGY Eosinophils # 0.8 K/CMM 0.0 - 0.5 10/02 [facility] LIPIDS LDL Direct 38 mg/dL <=99 mg/dL 10/02 [facility] URINE AND UA <=1.0 0.1 - 1.0 10/02 [facility] Urobilinogen mg/dL [facility] URINE AND UA Gran Cast 1 /LPF 10/02 [facility] URINE AND UA Hyph Yeast Occasional None Seen 10/02 [facility] *ABN* [place] (10/02/14 4:33 AM) URINE AND UA Theriot Yeast Occasional None Seen 10/02 [facility] /HPF /HPF /2013 [facility] URINE AND UA Sq Epi Few /LPF Few /LPF 10/02 [facility] URINE AND UA RBC 6 /HPF 0 - 2 10/02 [facility] URINE AND UA WBC 24 /HPF 0 - 5 10/02 [facility] URINE AND UA Mucus Few /LPF None Seen 10/02 [facility] /LPF /2013 [facility] URINE AND UA Bacteria Occasional None Seen 10/02 [facility] /HPF /HPF /2013 [facility] URINE AND UA Leuk Est Small Negative 10/02 [facility] Medical *ABN* [place] (10/02/14 4:33 AM) URINE AND UA Protein Negative Negative 10/02 [facility] mg/dL mg/dL [facility] URINE AND UA pH 5.5 5.0 - 8.0 10/02 [facility] URINE AND UA Ketones Negative Negative 10/02 [facility] mg/dL mg/dL [facility] URINE AND UA Glucose Negative Negative 10/02 [facility] mg/dL mg/dL [facility] URINE AND UA Bili Negative Negative 10/02 [facility] Medical *NA* Center (10/02/14 4:33 AM) URINE AND UA Spec Grav 1.016 <=1.030 10/02 [facility] URINE AND UA Blood Negative Negative 10/02 [facility] (10/02/14 4:33 AM) [place] URINE AND UA Nitrite Negative Negative 10/02 [facility] (10/02/14 4:33 AM) [place] URINE AND UA Turbidity Clear Clear 10/02 [facility] (10/02/14 4:33 AM) [place] URINE AND UA Color Yellow Yellow 10/02 [facility] *NA* Center (10/02/14 4:33 AM) CHEM PANEL Magnesium Lvl 1.8 mg/dL 1.8 - 2.4 10/01 [facility] CHEM PANEL eGFR 72 10/01 2Result Comment: The eGFR is calculated using the CKD-EPI formula. In most young, healthy individuals the eGFR will be >90 mL/ min/1.73m2. The eGFR declines with age. An eGFR of 60-89 may be normal in [facility] mL/min/1.7 some populations, particularly the elderly, for whom the CKD-EPI formula has not been extensively validated. Use of the eGFR is not recommended in the following populations: [address] Individuals with unstable creatinine concentrations, including patients and those with serious co-morbid conditions. Patients with extremes in muscle mass or diet. The data above are obtained from the National Kidney Disease Education Program (NKDEP) which additionally recommends that when the eGFR is used in patients with extremes of body mass index for purposes of drug dosing, the eGFR should be multiplied by the estimated BMI. CHEM PANEL Sodium Lvl 139 meq/L 135 - 145 10/01 [facility] CHEM PANEL Calcium Lvl 9.0 mg/dL 8.5 - 10.5 10/01 [facility] CHEM PANEL CO2 24 meq/L 24 - 32 10/01 [facility] CHEM PANEL Chloride Lvl 106 meq/L 95 - 109 10/01 [facility] CHEM PANEL Potassium Lvl 3.9 meq/L 3.5 - 5.1 10/01 [facility] CHEM PANEL Glucose Lvl 186 mg/dL 70 - 99 10/01 5Interpretive Data: Adult reference range values reflect the clinical guidelines of the [place] [employer]. [facility] CHEM PANEL Creatinine 0.8 mg/dL 0.5 - 1.4 10/01 [facility] CHEM PANEL BUN 21 mg/dL 7 - 22 10/01 [facility] CHEM PANEL AGAP 12.9 meq/L 10.0 - 10/01 [facility] 20.0 [facility] HEMATOLOGY Monocytes # 1.2 K/CMM 0.0 - 0.8 10/01 [facility] HEMATOLOGY Eosinophils # 0.9 K/CMM 0.0 - 0.5 10/01 [facility] HEMATOLOGY Eosinophils 3.5 % 0.0 - 4.0 10/01 [facility] HEMATOLOGY Segs-Bands # 18.7 K/CMM 1.5 - 8.1 10/01 [facility] HEMATOLOGY Basophils 1.2 % 0.0 - 1.0 10/01 [facility] HEMATOLOGY Lymphocytes # 3.6 K/CMM 1.0 - 5.5 10/01 [facility] HEMATOLOGY Basophils # 0.3 K/CMM 0.0 - 0.2 10/01 [facility] HEMATOLOGY Anisocyte 1+ None Seen 10/01 [facility] Center (10/01/14 2:47 PM) HEMATOLOGY Lymphocytes 14.5 % 20.0 - 10/01 40.0 [facility] HEMATOLOGY Segs 75.8 % 45.0 - 10/01 [facility] 75.0 [facility] HEMATOLOGY Monocytes 5.0 % 2.0 - 12.0 10/01 [facility] HEMATOLOGY MCHC 33.9 g/dL 32.0 - 10/01 36.0 [facility] HEMATOLOGY MCV 93.7 fL 80.0 - 10/01 98.0 [facility] HEMATOLOGY MCH 31.8 pg 27.0 - 10/01 31.0 [facility] HEMATOLOGY MPV 6.9 fL 7.4 - 10.4 10/01 [facility] HEMATOLOGY RDW 13.1 % 11.5 - 10/01 14.5 [facility] HEMATOLOGY Platelet 846 K/CMM 133 - 450 12 [facility] HEMATOLOGY Hct 30.6 % 36.0 - 12 48.0 [facility] HEMATOLOGY RBC 3.27 M/CMM 4.20 - 10/01 [facility] 5.40 [facility] HEMATOLOGY Hgb 10.4 g/dL 12.0 - 10/01 [facility] 16.0 [facility] HEMATOLOGY WBC 24.7 K/CMM 3.7 - 10.4 10/01 [facility] Chest 1view Chest 1view PORTABLE CHEST 2014-10-01 18:56:00 10/01 - [facility] - [facility] COMPARISON: 09/26/2014 Read by: Jayro York MD Dictated Date/time: 10/02/14 09:44 Electronically Signed by: Jayro York 10/02/14 09:46 FINAL REPORT CLINICAL INDICATION: Abnormal chest sounds DISCUSSION: Removal of the support lines and tubes. Stable cardiac silhouette. There is a left retrocardiac opacity which obliterates the silhouette of the descending thoracic aorta and the left hemidiaphragm. This opacity represents, singly or in combination, layering left pleur al effusion with or without left lower lobe consolidation or atelectasis. No pneumothorax is identified, however, a supine film is suboptimal for that determination. An erect film of the chest is sugge sted in order to more accurately exclude a pneumothorax. LIPIDS LDL Direct 49 mg/dL <=99 mg/dL 10/01 [facility] PARATHYROID Ca Norm WB 1.15 1. - 10/01 [facility] PROFILE mMol/L 1. [facility] PARATHYROID Ca Ion WB 1.12 1.05 - 10/01 [facility] PROFILE mMol/L 1.25 [facility] URINE AND UA <=1.0 0.1 - 1.0 10/01 [facility] Urobilinogen mg/dL [facility] URINE AND UA Mucus Few /LPF None Seen 10/01 [facility] /LPF /2013 [facility] URINE AND UA Theriot Yeast Many /HPF None Seen 10/01 [facility] /HPF [facility] URINE AND UA Hyph Yeast Few None Seen 10/01 [facility] [place] (09/30/14 6:38 PM) URINE AND UA RBC 7 /HPF 0 - 2 10/01 [facility] URINE AND UA Bacteria Occasional None Seen 10/01 [facility] /HPF /HPF [facility] URINE AND UA Leuk Est Moderate Negative 10/01 [facility] [place] (09/30/14 6:38 PM) URINE AND UA WBC 36 /HPF 0 - 5 10/01 [facility] URINE AND UA Sq Epi Few /LPF Few /LPF 10/01 [facility] URINE AND UA Spec Grav 1.015 <=1.030 10/01 [facility] URINE AND UA Turbidity Clear Clear 10/01 [facility] (09/30/14 6:38 PM) [place] URINE AND UA Color Yellow Yellow 10/01 [facility] *NA* [place] (09/30/14 6:38 PM) URINE AND UA Bili Negative Negative 10/01 [facility] *NA* [place] (09/30/14 6:38 PM) URINE AND UA Blood Negative Negative 10/01 [facility] (09/30/14 6:38 PM) [place] URINE AND UA Ketones Negative Negative 10/01 [facility] mg/dL mg/dL [facility] URINE AND UA Nitrite Negative Negative 10/01 [facility] (09/30/14 6:38 PM) [place] URINE AND UA pH 5.0 5.0 - 8.0 10/01 [facility] URINE AND UA Glucose Negative Negative 10/01 [facility] mg/dL mg/dL [facility] URINE AND UA Protein Negative Negative 10/01 [facility] mg/dL mg/dL [facility] CHEM PANEL Magnesium Lvl 1.9 mg/dL 1.8 - 2.4 09/30 [facility] CHEM PANEL Phosphorus 3.7 mg/dL 2.5 - 4.5 09/30 [facility] CHEM PANEL eGFR 72 09/30 3Result Comment: The eGFR is calculated using the CKD-EPI formula. In most young, healthy individuals the eGFR will be >90 mL/ min/1.73m2. The eGFR declines with age. An eGFR of 60-89 may be normal in [facility] mL/min/1.7 /2013 some populations, particularly the elderly, for whom the CKD-EPI formula has not been extensively validated. Use of the eGFR is not recommended in the following populations: [address] Individuals with unstable creatinine concentrations, including patients and those with serious co-morbid conditions. Patients with extremes in muscle mass or diet. The data above are obtained from the National Kidney Disease Education Program (NKDEP) which additionally recommends that when the eGFR is used in patients with extremes of body mass index for purposes of drug dosing, the eGFR should be multiplied by the estimated BMI. CHEM PANEL AGAP 15.7 meq/L 10.0 - 09/30 20.0 [facility] CHEM PANEL Potassium Lvl 4.7 meq/L 3.5 - 5.1 09/30 [facility] CHEM PANEL Chloride Lvl 105 meq/L 95 - 109 09/30 [facility] CHEM PANEL Calcium Lvl 9.1 mg/dL 8.5 - 10.5 09/30 [facility] CHEM PANEL CO2 23 meq/L 24 - 32 09/30 [facility] CHEM PANEL BUN 31 mg/dL 7 - 22 09/30 [facility] CHEM PANEL Glucose Lvl 241 mg/dL 70 - 99 09/30 6Interpretive Data: Adult reference range values reflect the clinical guidelines of the [place] [employer]. [facility] CHEM PANEL Creatinine 0.8 mg/dL 0.5 - 1.4 09/30 [facility] Lvl [facility] CHEM PANEL Sodium Lvl 139 meq/L 135 - 145 09/30 [facility] PARATHYROID Ca Norm WB 1.13 1.05 - 09/30 [facility] PROFILE mMol/L 1. [facility] PARATHYROID Ca Ion WB 1.10 1.05 - 09/30 [facility] PROFILE mMol/L 1. [facility] CHEM PANEL Phosphorus 3.7 mg/dL 2.5 - 4.5 09/29 [facility] HEMATOLOGY Rouleaux Present None Seen 09/29 [facility] *ABN* [place] (09/29/14 2:58 AM) HEMATOLOGY RBC Morph Normal 09/29 [facility] (09/29/14 2:58 AM) [place] HEMATOLOGY Plt Morph Normal 09/29 [facility] (09/29/14 2:58 AM) [place] HEMATOLOGY Atypical 0.0 % <=0.0 % 09/29 [facility] Lymphs [facility] HEMATOLOGY Metamyelocyte 3.0 % 0.0 - 1.0 09/29 [facility] s [facility] HEMATOLOGY Myelocytes 2.0 % <=0.0 % 09/29 [facility] HEMATOLOGY Bands 5.0 % 0.0 - 11.0 09/29 [facility] HEMATOLOGY PTT 31.1 s 22.9 - 09/29 11Interpretiv [facility] 35.8 /2014 e Data: [facility] Therapeutic Range: 57 - 92 Seconds HEMATOLOGY PT 13.6 s 12.0 - 12 [place] 14.7 /2014 [facility] HEMATOLOGY INR 1.04 0.85 - 09/29 8Interpretive Data: RECOMMENDED RANGES FOR PROTIME INR: [facility] 1. 2.0-3.0 for most medical and surgical thromboembolic states. Medical 2.5-3.5 for artificial heart valves and recurrent embolism. Center INR SHOULD BE USED ONLY FOR PATIENTS ON STABLE ANTICOAGULANT THERAPY. PARATHYROID Ca Norm WB 1.18 1.05 - 09/29 [facility] PROFILE mMol/L 1. [facility] PARATHYROID Ca Ion WB 1.16 1.05 - 09/29 [facility] PROFILE mMol/L 1. [facility] BLOOD BANK Antibody Scrn Negative 09/29 [facility] RESULTS /2013 [facility] (09/29/14 2:50 AM) [place] BLOOD BANK ABO/Rh A POS 09/29 [facility] RESULTS [facility] Abdomen AP Abdomen AP EXAM: XR ABDOMEN 1 VIEW 09/28 - [facility] view /2013 - [facility] This report was dictated by a Vtc Technician/Fellow. I have personally reviewed the images as Center well as the Resident's interpretation and agree with the findings. DATE: 09/28/2014 at 1140 hours. Read by: Yury Figueroa MD Resident: Yury Figueroa MD Dictated Date/time: 09/28/14 12:39 Electronically Signed by: Rios Perdomo MD 09/28/14 17:17 FINAL REPORT INDICATION: Tube placement/removal/reposition. COMPARISON: Abdominal radiograph from 09/15/2014. TECHNIQUE: A single supine AP portable radiograph of the abdomen was obtained following tube placement. FINDINGS: The nasogastric tube is removed. An enteric feeding tube is again seen course along the greater curvature with its tip at the distal stomach. The lung bases are unchanged with a continued small left pleural effusion, left retrocardiac opacity and central line terminating at the atriocaval junction. The bowel gas pattern remains nonobstructive. No new skeletal abnormality is seen.. IMPRESSION: Feeding tube tip at the distal stomach. The nasogastric tube has been removed. CHEM PANEL Phosphorus 2.7 mg/dL 2.5 - 4.5 09/28 [place] /2013 [facility] HEMATOLOGY Metamyelocyte 1.0 % 0.0 - 1.0 09/28 [facility] s [facility] HEMATOLOGY Atypical 0.0 % <=0.0 % 09/28 [facility] Lymph [facility] HEMATOLOGY RBC Morph Normal 09/28 [facility] (09/28/14 12:18 AM) [place] HEMATOLOGY Bands 4.0 % 0.0 - 11.0 09/28 [facility] HEMATOLOGY Plt Morph Normal 09/28 [facility] (09/28/14 12:18 AM) [place] HEMATOLOGY Plt Morph Normal 09/27 [facility] (09/27/14 12:16 AM) [place] HEMATOLOGY RBC Morph Normal 09/27 [facility] (09/27/14 12:16 AM) [place] Chest 1view Chest 1view EXAM: CHEST 1 VIEW 09/26 - [facility] DATE: Sep 26, 2014 11:54:00 PM Read by: Cathi Burgos MD Dictated Date/time: 09/27/14 06:12 Electronically Signed by: Cathi Burgos MD 09/27/14 06:14 FINAL REPORT INDICATION: Tube placement/removal/reposition COMPARISON: September 26, 2014 at 0318 hours TECHNIQUE: A single portable view of the chest FINDINGS: Endotracheal tube has been removed. Other lines and tubes project in overall unchanged position compared with the prior. Cardiomediastinal silhouette is stable. Left effusion appears slightly more conspicuous on the current exam than on the prior. Bibasilar opacities persists. IMPRESSION: 1. Removal of endotracheal tube. 2. Slight increase in left effusion. 3. Persistent bibasilar opacities. HEMATOLOGY PTT 34.7 s 22.9 - 09/26 12Interpretiv [facility] 35.8 /2013 e Data: [facility] Therapeutic Range: 57 - 92 Seconds HEMATOLOGY PT 13.9 s 12.0 - 09/26 [facility] 14.7 [facility] HEMATOLOGY INR 1.07 0.85 - 09/26 9Interpretive Data: RECOMMENDED RANGES FOR PROTIME INR: [facility] 1. 2.0-3.0 for most medical and surgical thromboembolic states. Medical 2.5-3.5 for artificial heart valves and recurrent embolism. Center INR SHOULD BE USED ONLY FOR PATIENTS ON STABLE ANTICOAGULANT THERAPY. Chest 1view Chest 1view Chest one view, September 26, 2014 at 3:18 a.m. - - [facility] HISTORY: 74-year-old female with abnormal chest sounds. Read by: Codi rByant MD Dictated Date/time: 09/26/14 09:37 Electronically Signed by: Codi Bryant MD 09/26/14 11:03 FINAL REPORT Findings comparison is made to September 25. The cardiomediastinal silhouette is stable. Subsegmental atelectasis is seen in the bilateral lower lobes. There is a small left pleural effusion. The nasogastric tube has been removed. Other life support lines and tubes remain in place. IMPRESSION: 1. The nasogastric tube has been removed. 2. Bilateral lower lobe subsegmental atelectasis. 3. Small left pleural effusion. TOXICOLOGY Vanco Tr TND 1600 09/25 [facility] TOXICOLOGY Vanco Tr 19.1 ug/ml 09/25 7Interpretive Data: Therapeutic Range: Trough: 10 - 20 ug/mL Medical Peak: 20 - 40 ug/mL Center Potential Toxicity: >80 ug/mL HEMATOLOGY INR 1.13 0.85 - 09/25 10Interpretive Data: RECOMMENDED RANGES FOR PROTIME INR: [facility] . 2.0-3.0 for most medical and surgical thromboembolic states. Medical 2.5-3.5 for artificial heart valves and recurrent embolism. Center INR SHOULD BE USED ONLY FOR PATIENTS ON STABLE ANTICOAGULANT THERAPY. HEMATOLOGY PTT 37.5 s 22.9 - 09/25 13Interpretiv [facility] 35.8 e Data: [facility] Therapeutic Range: 57 - 92 Seconds HEMATOLOGY PT 14.6 s 12.0 - 09/25 [facility] 14.7 [facility] LIPIDS Trig 226 mg/dL <=149 09/25 [facility] mg/dL [facility] LIPIDS Chol 65 mg/dL <=199 09/25 [facility] mg/dL [facility] LIPIDS VLDL 45 09/25 [facility] LIPIDS LDL 0 mg/dL <=99 mg/dL 09/25 [facility] (Calculated) [facility] LIPIDS CHD Risk 3.25 3.90 - 09/25 [facility] 5.80 [facility] LIPIDS HDL 20 mg/dL >=61 mg/dL 09/25 [facility] Chest 1view Chest 1view EXAM: XR CHEST 1 VIEW 09/25 - [facility] DATE: 09/25/2014 at 0312 Read by: Yury Cavazos MD Dictated Date/time: 09/25/14 14:41 Electronically Signed by: Yury Cavazos MD 09/25/14 15:24 FINAL REPORT INDICATION: Abnormal chest sounds COMPARISON: 09/24/2014 at 0535 TECHNIQUE: Single AP view of the chest DISCUSSION: Semiupright view of the chest shows a few scattered opacities in both bases suggestive of atelectasis. Again demonstrated is blunting of left costophrenic angle compatible with left-sided pl eural effusion. The cardiomediastinal silhouette is stable. A right IJ catheter terminates over the superior vena cava. Endotracheal tube, Dobbhoff tube, and nasogastric tube show stable configuration. IMPRESSION: 1. No significant changes since the prior chest radiograph. Carotid Carotid INDICATION: Stroke 09/24 [facility] Doppler Doppler [facility] bilat US US PROCEDURE: The extracranial carotid arteries were evaluated in the neck using real time imaging, color Doppler imaging and spectral Doppler. Read by: Rios Perdomo MD Dictated Date/time: 09/25/14 08:43 Electronically Signed by: Rios Perdomo MD 09/25/14 08:49 FINAL REPORT FINDINGS: The right common carotid artery is patent. There is extensive plaque in the right carotid bulb. The right internal carotid artery has plaque proximally, and some of this is at least some calc ification. Flow in the external carotid artery and the right vertebral artery was antegrade. The ICA to CCA ratio was 1.1. The left common carotid artery had no plaque and was widely patent. The left carotid bulb had plaque, some of which was calcified. The left internal carotid artery had calcified plaque proximally. Fl ow in the external carotid artery and the left vertebral artery was antegrade. The ICA to CCA ratio was 0.8. PEAK SYSTOLIC VELOCITY: RIGHT LEFT CCA 162 CM/SEC 156 CM/SEC CAROTID BULB 128 CM/SEC 147 CM/SEC ICA 172 CM/SEC 130 CM/SEC IMPRESSION: 1. After sclerotic plaque is present in the carotid bulbs and proximal internal carotid arteries bilaterally. The amount of stenosis is between 50 and 69% bilaterally. 2. There was normal directional flow in the vertebral arteries bilaterally. CHEM PANEL Lactic Acid 1.3 mMol/L 0.5 - 2.2 09/24 [facility] Chest 1view Chest 1view EXAM: XR CHEST 1 VIEW 09/24 - [facility] - [facility] DATE: 09/24/2014 at 0535 Read by: Yury Cavazos MD Dictated Date/time: 09/24/14 15:07 Electronically Signed by: Yury Cavazos MD 09/24/14 15:08 FINAL REPORT INDICATION: Abnormal chest sounds COMPARISON: 09/23/2014 at 1550 TECHNIQUE: Single AP view of the chest DISCUSSION: Life support tubes and lines are not significantly changed in appearance. Mild linear left retrocardiac and right basilar opacity, suggesting atelectasis. Blunting of the left costophrenic angle suggests presence of small pleural effusion. The cardiomediastinal silhouette is stable. No evidence for pneumothorax within the limitation of a semiupright exam. IMPRESSION: 1. No significant changes since the prior chest radiograph. CHEM PANEL Lactic Acid 2.2 mMol/L 0.5 - 2.2 09/23 [facility] CARDIAC Troponin-I null 0.00 - 09/23 [facility] ENZYMES 0.40 [facility] CARDIAC Troponin-T null 0.000 - 09/23 [facility] ENZYMES 0.100 [facility] Chest 1view Chest 1view EXAM: XR CHEST 1 VIEW 09/23 - [facility] - [facility] DATE: 09/23/2014 at 1550 hours Read by: Yury Cavazos MD Dictated Date/time: 09/23/14 17:05 Electronically Signed by: Yury Cavazos MD 09/23/14 17:07 FINAL REPORT INDICATION: Central Line Placement COMPARISON: 09/23/2014 at 0116 hours TECHNIQUE: Single AP view of the chest DISCUSSION: The endotracheal tube, and nasogastric tube show stable positioning. The nasogastric tube is incompletely imaged. The Dobbhoff tube is in place are well, descending below the diaphragm and is incompletely imaged. Interval placement of a right IJ catheter, with the tip overlying the superior vena cava. Left worse than right mild atelectasis in the lung bases. A left pleural effusion is not excluded. The cardiomediastinal silhouette is stable. IMPRESSION: 1. Interval placement of a right IJ catheter. 2. Interval placement of a Dobbhoff tube, which is incompletely evaluated. CARDIAC Total CK 38 unit/L 12 - 191 09/23 [facility] ENZYMES [facility] CARDIAC Troponin-I null 0.00 - 09/23 [facility] ENZYMES 0.40 [facility] CHEM PANEL Lactic Acid 3.6 mMol/L 0.5 - 2.2 09/23 [facility] Lvl /2013 [facility] CHEM PANEL Procalcitonin 1.69 ng/mL 0.00 - 09/23 [facility] Brain wo Brain wo EXAM: MRI BRAIN WITHOUT CONTRAST 09/23 [facility] contrast contrast MRI /2013 - [facility] MRI Center DATE: Sep 23, 2014 01:17:00 PM Read by: Lyle Nuno MD Dictated Date/time: 09/24/14 09:17 Electronically Signed by: Lyle Nuno MD 09/24/14 09:21 FINAL REPORT INDICATION: Altered level of consciousness, abnormal MRI COMPARISON: September 22, 2014 4:09 a.m. TECHNIQUE: A exam comprised of the A reduced number of sequences is performed as ordered. These include axial diffusion weighted images, axial T2 FLAIR, axial T2 star images. FINDINGS: There is no interval change in the extent of the previously described region of restricted diffusion in the left hemipons extending up toward but not into the left cerebral peduncle. The intensity of si gnal abnormality has increased, as expected for an evolving acute infarct. The appearance of the remainder of the brain parenchyma is unchanged. 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 Incidental imaging of the orbits, paranasal sinuses, skull, and skull base demonstrates no interval change. Appropriate flow-voids are present in the vessels at the base of the brain. IMPRESSION: Evolving left pontine infarct. No new regions of ischemia. No hemorrhagic transformation. Neck wo Neck wo EXAM: MRA OF THE CERVICAL VASCULATURE WITHOUT CONTRAST [facility] contrast contrast MRA /2013 - [facility] MRA Center DATE: Sep 23, 2014 01:17:00 PM Read by: Lyle Nuno MD Dictated Date/time: 09/24/14 09:21 Electronically Signed by: Lyle Nuno MD 09/24/14 09:29 FINAL REPORT INDICATION: Dysarthria TECHNIQUE: BRAIN MRI: 2D time of flight MR angiography of the cervical vasculature and 3-D time- of-flight MR angiography of the carotid bifurcations is performed. Maximum intensity projection reformatted images are presented in multiple three-dimensional rotational projections. FINDINGS: Image quality of the lower portion of the exam is limited as a consequence of the patient's body habitus. Origins of the brachiocephalic and left common carotid artery from the aortic arch are carin sly normal but best seen on the source images rather than the computer reformatted maximal intensity projection images. The proximal left subclavian artery is not visualized. The origin of the left vertebral artery is also poorly visualized. However , given the relatively decent visualization of the right vertebral artery, this is felt to represent the presence of an abnormality. The cervical common and right internal carotid arteries have a normal course caliber and contour. No hemodynamically significant stenosis is identified at the carotid bifurcations. Minimal atherosclerot ic changes, however, are present involving the origin of the left internal carotid artery (resulting in approximately 20% narrowing) and, likely also present more cephalad. Vertebrobasilar circulation: The vertebral arteries in the mid and upper cervical region have a normal course caliber and contour. The caliber of the left vertebral artery is smaller than the right. It is not possible to know whether this is a pre-existing finding and developmental in origin or the result of the more proximal stenosis. IMPRESSION: Exam suffers from some technical limitations. However, the left subclavian artery is believed to be highly stenotic rather than occluded with possible subclavian steal given much better visualization of the vertebral artery more distally. All qualitative and quantitative assessments of carotid bifurcation and proximal internal carotid artery stenosis are made referencing the distal internal carotid artery. Abdomen AP Abdomen AP EXAM: XR ABDOMEN 1 VIEW 09/23 - [facility] /2013 - [facility] This report was dictated by a Vtc Technician/Fellow. I have personally reviewed the images as Center well as the Resident's interpretation and agree with the findings. DATE: 09/23/2014 at 0451 hours Read by: Yury Cavazos (fellow ) Resident: Yury Cavazos (fellow) Dictated Date/time: 09/23/14 09:05 Electronically Signed by: Ernesto Wade MD 09/23/14 10:43 FINAL REPORT CLINICAL INFORMATION: Tube placement. COMPARISON: None available. TECHNIQUE: Frontal view of the abdomen. FINDINGS: Dobbhoff feeding tube tip projects over line the distal stomach. Nasogastric tube tip projects over the distal stomach. The bowel gas pattern is nonspecific and nonobstructive. Degenerative changes are seen in the thoracic and lumbar spine. The bowel gas pattern is nonspecific and nonobstructive. Small left pleural effusion is noted, with slight elevation of the left hemidiaphragm. IMPRESSION: 1. Dobbhoff feeding tube tip projects overlying the distal stomach. 2. Nasogastric drainage tube tip projects overlying the distal stomach. Chest 1view Chest 1view PORTABLE CHEST 2014-09-23 03:29:00 09/23 - [facility] - [facility] COMPARISON: Yesterday Read by: Jayro York MD Dictated Date/time: 09/23/14 10:47 Electronically Signed by: Jayro York 09/23/14 10:49 FINAL REPORT CLINICAL INDICATION: Abnormal chest sounds DISCUSSION: The endotracheal tube has been mildly advanced and is now 2 cm above the portia. Retraction of 2 cm is recommended for beneficial positioning. Stable life support lines and tubes. Stable cardiac silhouette. Low lung volumes with bilateral basilar platelike atelectasis and questionable small pleural effusions. Stable skeletal structures. CONCLUSION: 1. The endotracheal tube has been mildly advanced and is now 2 cm above the portia. Retraction of 2 cm is recommended for beneficial positioning. 2. Otherwise, described in the body of the report. URINE AND UA Sq Epi None Seen 09/22 [facility] URINE AND UA <=1.0 0.1 - 1.0 09/22 [facility] Urobilinogen mg/dL [facility] URINE AND UA Protein 50 mg/dL Negative 09/22 [facility] mg/dL [facility] URINE AND UA Blood Trace Negative 09/22 [facility] *ABN* [place] (09/22/14 2:43 AM) URINE AND UA Nitrite Negative Negative 09/22 [facility]22[facility]14 2:[facility] AND UA Ketones 10 mg/dL Negative 09/22 [facility] mg/dL [facility] URINE AND UA Bili Negative Negative 09/22 [facility] Medical *NA* [place] (09/22/14 2:43 AM) URINE AND UA Glucose 50 mg/dL Negative 09/22 [facility] mg/dL [facility] URINE AND UA Spec Grav 1.005 <=1.030 09/22 [facility] STOOL [facility] URINE AND UA pH 5.5 5.0 - 8.0 09/22 [facility] URINE AND UA Color Yellow Yellow 09/22 [facility] *NA* Center (09/22/14 2:43 AM) URINE AND UA Turbidity Slight Clear 09/22 [facility] [place] (09/22/14 2:43 AM) URINE AND UA Amorph Occasional None Seen 09/22 [facility] [place] /HPF /HPF [facility] URINE AND UA Hyal Cast 2 /LPF 0 - 2 09/22 [facility] URINE AND UA Mucus Few /LPF None Seen 09/22 [facility] /LPF /2013 [facility] URINE AND UA RBC 9 /HPF 0 - 2 09/22 [facility] URINE AND UA Bacteria Moderate None Seen 09/22 [facility] STOOL /HPF /HPF [facility] URINE AND UA Leuk Est Large Negative 09/22 [facility] *ABN* [place] (09/22/14 2:43 AM) URINE AND UA WBC null 0 - 5 09/22 [facility] SPECIAL Hgb A1C 9.0 % <=5.6 % 09/22 [facility] CHEMISTRY [facility] BLOOD BANK ABO/Rh A POS 09/22 [facility] RESULTS [facility] BLOOD BANK Antibody Scrn Negative 09/22 [facility] RESULTS [facility] (09/22/14 12:01 AM) [place] Chest 1view Chest 1view Chest one view, September 22, 2014 at 5:05 a.m. - - [facility] HISTORY: 74-year-old female with altered level of consciousness. Read by: Codi Bryant MD Dictated Date/time: 09/22/14 14:00 Electronically Signed by: Codi Bryant MD 09/22/14 15:04 FINAL REPORT FINDINGS: Comparison is made to yesterday evening. The cardiomediastinal silhouette, life support lines and tubes are stable. Bibasilar platelike atelectasis is noted. There is a tiny left pleural effusion. IMPRESSION: Bibasilar platelike atelectasis with tiny left pleural effusion. Brain wo Brain wo EXAM: MRI BRAIN. 09/22 - [facility] contrast contrast MRA /2013 - Medical MRA EXAM: MRA BRAIN. Center Read by: Dominique Encinas MD Dictated Date/time: 09/22/14 10:25 DATE: September 22, 2014 at 0409. Electronically Signed by: Dominique Encinas MD 09/22/14 10:50 FINAL REPORT CLINICAL INDICATION: Weakness COMPARISON: CT brain without contrast over 2013 at 2138. TECHNIQUE: Multiecho multiplanar images were obtained without enhancement including axial FLAIR, T2 gradient echo and diffusion weighted imaging with ADC mapping. 3D MRA time of flight images of the ci rcle of Kamara were also provided. 3D MIP (maximum intensity projection) reconstructions were performed. FINDINGS: MRI brain: Restricted diffusion is seen in the central and left aspect of the awa consistent with acute infarction. This corresponds to hypodensity seen on recent CT. There is associated T2 and FLAIR hyperintense signal abnormality. No significant intracranial mass effect or midline shift. No recent intracranial hemorrhage. Additional foci of T2 and FLAIR hyperintense signal abnormality are seen scattered throughout the supratentorial white matter, deep morelos nuclei and awa which likely represent chronic microangiopathic c hanges. Moderate generalized cerebral atrophy with compensatory enlargement of the ventricles and sulci. The basal cisterns are patent. A T2 hypointense parafalcine extra-axial mass is seen in the posterior frontal region which measures 1.5 x 1.4 x 1.3 cm (image 36 series 6). It has a broad dural attachment and is seen along the right g reater than left aspects of the falx. It mildly indents the adjacent right greater than left posterior frontal lobes without underlying vasogenic edema. It demonstrates susceptibility corresponding to c alcification on recent CT and is most consistent with a calcified meningioma. A smaller 6 to 7 mm T2 hypointense extra-axial calcification abuts the dura in the right frontal region on image 28 of serie s 6 and may represent dural calcification or a smaller meningioma. Hyperostosis frontalis is noted. A 6mm round T2 hypointense signal abnormality seen in the anterior third ventricle which corresponds hyperdensity on CT likely represents a small colloid cyst. No hydrocephalus. Fluid signal seen in the dependent paranasal sinuses which is a nonspecific finding in the recumbent intubated patient. Prior bilateral cataract surgery. MRA: There is diffuse intracranial atherosclerosis. No flow limiting stenosis or occlusion of the distal internal carotid arteries and visualized proximal branches of the anterior and middle cerebral arteries. The right distal vertebral artery and basilar artery are unremarkable without flow limiting stenosis. Mild luminal narrowing of the distal left intracranial vertebral artery. The visualized proximal cer ebellar branches are grossly unremarkable. Focal stenosis of the P1 segment of the right posterior cerebral artery exceeding 50%. No hemodynamically significant stenosis in the left P1 and P2 segments. IMPRESSION: 1. Acute pontine infarct. No significant intracranial mass effect. 2. Moderate chronic microangiopathic changes and generalized cerebral atrophy. 3. 1.5 cm posterior frontal parafalcine calcified meningioma. Smaller 7 mm right frontal dural calcification versus small calcified meningioma. 4. 6 mm colloid cyst. No hydrocephalus. 5. MRA: Diffuse intracranial atherosclerosis. Stenosis of the P1 segment of the right posterior cerebral artery exceeding 50%. Mild luminal narrowing of the distal intracranial left vertebral artery Brain wo Brain wo EXAM: MRI BRAIN. 09/22 - [facility] contrast contrast MRI /2013 - Medical MRI EXAM: MRA BRAIN. Center Read by: Dominique Encinas MD Dictated Date/time: 09/22/14 10:25 DATE: September 22, 2014 at 0409. Electronically Signed by: Dominique Encinas MD 09/22/14 10:50 FINAL REPORT CLINICAL INDICATION: Weakness COMPARISON: CT brain without contrast over 2013 at 2138. TECHNIQUE: Multiecho multiplanar images were obtained without enhancement including axial FLAIR, T2 gradient echo and diffusion weighted imaging with ADC mapping. 3D MRA time of flight images of the ci rcle of Kamara were also provided. 3D MIP (maximum intensity projection) reconstructions were performed. FINDINGS: MRI brain: Restricted diffusion is seen in the central and left aspect of the awa consistent with acute infarction. This corresponds to hypodensity seen on recent CT. There is associated T2 and FLAIR hyperintense signal abnormality. No significant intracranial mass effect or midline shift. No recent intracranial hemorrhage. Additional foci of T2 and FLAIR hyperintense signal abnormality are seen scattered throughout the supratentorial white matter, deep morelos nuclei and awa which likely represent chronic microangiopathic c hanges. Moderate generalized cerebral atrophy with compensatory enlargement of the ventricles and sulci. The basal cisterns are patent. A T2 hypointense parafalcine extra-axial mass is seen in the posterior frontal region which measures 1.5 x 1.4 x 1.3 cm (image 36 series 6). It has a broad dural attachment and is seen along the right g reater than left aspects of the falx. It mildly indents the adjacent right greater than left posterior frontal lobes without underlying vasogenic edema. It demonstrates susceptibility corresponding to c alcification on recent CT and is most consistent with a calcified meningioma. A smaller 6 to 7 mm T2 hypointense extra-axial calcification abuts the dura in the right frontal region on image 28 of serie s 6 and may represent dural calcification or a smaller meningioma. Hyperostosis frontalis is noted. A 6mm round T2 hypointense signal abnormality seen in the anterior third ventricle which corresponds hyperdensity on CT likely represents a small colloid cyst. No hydrocephalus. Fluid signal seen in the dependent paranasal sinuses which is a nonspecific finding in the recumbent intubated patient. Prior bilateral cataract surgery. MRA: There is diffuse intracranial atherosclerosis. No flow limiting stenosis or occlusion of the distal internal carotid arteries and visualized proximal branches of the anterior and middle cerebral arteries. The right distal vertebral artery and basilar artery are unremarkable without flow limiting stenosis. Mild luminal narrowing of the distal left intracranial vertebral artery. The visualized proximal cer ebellar branches are grossly unremarkable. Focal stenosis of the P1 segment of the right posterior cerebral artery exceeding 50%. No hemodynamically significant stenosis in the left P1 and P2 segments. IMPRESSION: 1. Acute pontine infarct. No significant intracranial mass effect. 2. Moderate chronic microangiopathic changes and generalized cerebral atrophy. 3. 1.5 cm posterior frontal parafalcine calcified meningioma. Smaller 7 mm right frontal dural calcification versus small calcified meningioma. 4. 6 mm colloid cyst. No hydrocephalus. 5. MRA: Diffuse intracranial atherosclerosis. Stenosis of the P1 segment of the right posterior cerebral artery exceeding 50%. Mild luminal narrowing of the distal intracranial left vertebral artery CARDIAC Troponin-I null 0.00 - 09/22 [facility] ENZYMES 0.40 /2014 [facility] Brain Brain Stroke CT SCAN OF THE BRAIN 09/21 - [facility] Stroke wo wo contrast /2013 - [facility] contrast CT CT Center DATE: 09/21/2014 at 9:38 p.m. Read by: Jatin Spivey MD Dictated Date/time: 09/22/14 02:28 Electronically Signed by: Jatin Spivey MD 09/22/14 02:40 FINAL REPORT Comparison studies: Outside imaging from [facility] 09/21/2014 at 6:19 p.m. CLINICAL INFORMATION: Focal neurological deficit, right-sided weakness. TECHNIQUE: Routine axial images of the brain were obtained in the unenhanced mode. Sagittal and coronal reformatted images were also provided. FINDINGS: There are no acute hemorrhages or infarcts. The morelos/white interfaces are well defined. There is prominence of the cortical sulci, fissures, cisterns and ventricles consistent with cortical atrophy appropriate for the patient's age of 74 years. There is an approximately 1.3 centimeters hyperdense mass arising from the anterior falx and projecting primarily to the right also to left of midline consistent with a calcified meningioma. An approxim ately 7 mm hyperdense mass is noted with the third ventricle (series 4 image 20, series 5 image 17 ) suggestive of a colloid cyst. There is no hydrocephalus. There are no acute bony abnormalities. The calvarium is intact. Atherosclerotic calcification is noted within the ramirez of the vertebral and cavernous internal carotid arteries bilaterally. Lenses are noted within both globes consistent prior cataract surgery. IMPRESSION: 1. No acute intracranial abnormality. There is no acute hemorrhage or acute infarct. 2. 7 mm hyperdense mass within the third ventricle consistent with a colloid cyst. There is no hydrocephalus. 3. Age-related volume loss. 4. 1.3 cm anterior parafalcine calcified meningioma. 5. Arterial atherosclerosis. Chest 1view Chest 1view EXAM: CHEST 1 VIEW 09/21 [facility] - [facility] This report was dictated by a Vtc Technician/Fellow. I have personally reviewed the images as Center well as the Resident's interpretation and agree with the findings. DATE: Sep 21, 2014 09:11:00 PM Read by: Tiff Foy MD Resident: Tiff Foy MD Dictated Date/time: 09/21/14 21:16 Electronically Signed by: Clyde Bah MD 09/24/14 07:25 FINAL REPORT INDICATION: Focal neurological deficit COMPARISON: None available TECHNIQUE: A single portable view of the chest FINDINGS: Endotracheal tube tip terminates in the mid trachea and the nasogastric tube terminates in the stomach. Cardiomediastinal silhouette is normal. Pulmonary vascularity is within normal limits. There are p latelike opacities in the right midlung and base. The right costophrenic recess is sharp and the left is blunted by a small pleural effusion. Linear opacities are seen in the retrocardiac region. The re mainder of the lungs are clear. No acute bony abnormality is identified. Bones are osteopenic. Mild degenerative changes of the bilateral shoulder joints. IMPRESSION: 1. Scattered bibasilar subsegmental atelectasis. 2. Small left pleural effusion. 3. Endotracheal and nasogastric tubes in satisfactory position. 4. Mild bilateral shoulder joint osteoarthritis. Vital Signs Vital Sign Value Date Comments Source BMI Calculated 29.93 09/08/2017 [facility] Height 162.56 cm 09/08/2017 [facility] Weight 79.091 09/08/2017 [facility] Respitory Rate 18 09/08/2017 [facility] Heart Rate 89 09/08/2017 [facility] Systolic (mm Hg) 138 09/08/2017 [facility] Diastolic (mm Hg) 79 09/08/2017 [facility] Weight 79.091 10/03/2016 [facility] BMI Calculated 29.02 10/03/2016 [facility] Height 165.1 cm 10/03/2016 [facility] Respitory Rate 19 10/03/2016 [facility] Heart Rate 61 10/03/2016 [facility] Systolic (mm Hg) 137 10/03/2016 [facility] Diastolic (mm Hg) 75 10/03/2016 [facility] Respitory Rate 20 07/15/2016 [facility] Heart Rate 105 07/15/2016 [facility] Systolic (mm Hg) 159 07/15/2016 [facility] Diastolic (mm Hg) 77 07/15/2016 [facility] Height 165.1 cm 07/15/2016 [facility] Weight 79.545 07/15/2016 [facility] BMI Calculated 29.18 07/15/2016 [facility] Respitory Rate 20 09/01/2015 [facility] Heart Rate 99 09/01/2015 [facility] Systolic (mm Hg) 159 09/01/2015 [facility] Diastolic (mm Hg) 84 09/01/2015 [facility] BMI Calculated 28.35 09/01/2015 [facility] Weight 77.273 09/01/2015 [facility] Height 165.1 cm 09/01/2015 [facility] Systolic (mm Hg) 136 03/03/2015 [facility] Diastolic (mm Hg) 78 03/03/2015 [facility] Respitory Rate 20 03/03/2015 [facility] Heart Rate 104 03/03/2015 [facility] Weight 72.727 03/03/2015 [facility] Height 165.1 cm 03/03/2015 [facility] BMI Calculated 26.68 03/03/2015 [facility] Systolic (mm Hg) 142 01/16/2015 [facility] Diastolic (mm Hg) 54 01/16/2015 [facility] Heart Rate 110 01/16/2015 [facility] Temperature Oral (F) 98 F 01/16/2015 [facility] Heart Rate 52 12/02/2014 [facility] Diastolic (mm Hg) 52 12/02/2014 [facility] Systolic (mm Hg) 117 12/02/2014 [facility] Respitory Rate 18 12/02/2014 [facility] Height 162.56 cm 12/02/2014 [facility] Weight 69.545 12/02/2014 [facility] BMI Calculated 26.32 12/02/2014 [facility] Systolic (mm Hg) 138 10/06/2014 [facility] Diastolic (mm Hg) 78 10/06/2014 [facility] Respitory Rate 20 10/06/2014 [facility] Temperature Oral (F) 97.8 F 10/06/2014 [facility] Heart Rate 94 10/06/2014 [facility] Respitory Rate 20 10/06/2014 [facility] Systolic (mm Hg) 111 10/05/2014 [facility] Diastolic (mm Hg) 57 10/05/2014 [facility] Respitory Rate 16 10/05/2014 [facility] Heart Rate 78 10/05/2014 [facility] Temperature Oral (F) 97.3 F 10/05/2014 [facility] Heart Rate 102 10/05/2014 [facility] Temperature Oral (F) 98.3 F 10/05/2014 [facility] Systolic (mm Hg) 125 10/05/2014 [facility] Diastolic (mm Hg) 65 10/05/2014 [facility] Height 163.83 cm 09/22/2014 [facility] BMI Calculated 27.65 09/22/2014 [facility] Weight 74.2 09/22/2014 [facility] BMI Calculated 28.76 09/22/2014 [facility] Weight 76 09/22/2014 [facility] Height 162.56 cm 09/22/2014 [facility] Encounters Location Location Encounter Encounter Reason Attending ADM DC Status Source Details Type Number For Provider Date Date Visit [facility] [id number] Mickie 09/22 10/06 [facility] /2013 [facility] Outpatient [id number] [place] 11/30 12/01 [facility] [id number] Nino Nova 12/02 12/03 [facility] /2014 [facility] Outpatient [id number] Sal 01/16 01/17 [facility] /2014 [facility] Outpatient [id number] Nino Nova 03/03 03[facility] [id number] Sal 07/17 07/18 [facility] /2014 [facility] Outpatient [id number] Nino Nova 09/01 09/02 [facility] /2014 [facility] Outpatient [id number] Sal 07/15 07/16 [facility] /2015 [facility] Outpatient [id number] Nino Nova 10/03 10/04 [facility] /2015 [facility] Outpatient [id number] [place] 09/08 09/09 [facility] /2016 [facility] Procedures Procedure Code Date Perfomer Comments Source Video urodynamic [id number] 01/16/2015 [facility] study Mastectomy of left [id number] 10/27/1999 [facility] breast Mastectomy of left [id number] 10/27/1999 [facility] Hysterectomy [id number] 10/27/1966 [facility] Hysterectomy [id number] 10/27/1966 [facility] Appendectomy [id number] [facility] Lobectomy of [id number] LLL lobectomy [facility] lung<sup>1</sup> Appendectomy [id number] [facility] Lobectomy of [id number] 1LLL lobectomy [facility]<sup>1</sup> [facility]
--- OUTSIDE RECORDS SUMMARY | 2018-11-19 11:34 | XMS REPORT | Summary of Care ---
:1940 Author Name NIGHAT Gore DDS, JONATHAN Address Unavailable Unavailable , Care Team Providers Name Role Phone NIGHAT Gore DDS, JONATHAN Unavailable Unavailable LAURI STEARNS MD Unavailable Unavailable Nighat ZAMORA DDS Unavailable Unavailable Unavailable Unavailable Unavailable Functional Status Name Dates Details Functional status health issues are not documented Status: Name Dates Details Cognitive status health issues are not documented Status: Problems Name Dates Details Type 2 diabetes mellitus (250.00, E11.9) Status: Active Essential (primary) hypertension (401.9, I10) Status: Active Paroxysmal atrial fibrillation (427.31, I48.0) Status: Active Stroke syndrome Status: Active 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 Refills: 0 Start : 23-Nov-2014 Active Levothyroxine Sodium 112 MCG Oral Tablet TAKE 1 TABLET DAILY. Refills: 0 Start : 23-Nov-2014 Active Lisinopril 30 MG Oral Tablet TAKE 1 TABLET DAILY. Refills: 0 Start : 23-Nov-2014 Active MiraLax Oral Packet USE DIRECTED. Refills: 0 Start : 23-Nov-2014 Active Metoprolol Tartrate 50 MG Oral Tablet TAKE 1 TABLET DAILY. Refills: 0 Start : 23-Nov-2014 Active Xarelto 20 MG Oral Tablet Refills: 0 Start : 23-Nov-2014 Active Victoza 18 MG/3ML Subcutaneous Solution Pen-injector Refills: 0 Start : 23-Nov-2014 Active Sertraline HCl - 25 MG Oral Tablet TAKE 1 TABLET DAILY. Refills: 0 Start : 23-Nov-2014 Active Levemir 100 UNIT/ML Subcutaneous Solution Refills: 0 Start : 23-Nov-2014 Active PriLOSEC 40 MG CPDR TAKE 1 CAPSULE DAILY. Refills: 0 Start : 23-Nov-2014 Active Glucagon Emergency 1 MG Injection Kit USE DIRECTED. Refills: 0 Start : 23-Nov-2014 Active Acetaminophen 8 Hour 650 MG TABS Refills: 0 Start : 23-Nov-2014 Active HydrALAZINE HCl - 25 MG Oral Tablet TAKE 1 TABLET TWICE DAILY. Refills: 0 Start : 23-Nov-2014 Active Bisacodyl 10 MG Rectal Suppository USE DIRECTED. 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) Status: Resolved History of Transient ischemic attack (TIA) (435.9, G45.9) Status: Resolved History of type 2 diabetes mellitus (V12.29, Z86.39) Status: Resolved Procedures Procedure Dates Details CT Neck/Chest w contrast [id number] Date: 04-Oct-[address] Tumor imaging [facility] [id number] Date: 08-Oct-2018 Immunization Name Dates Details Immunizations not documented Family History Name Dates Details Family history of Heart attack (410.90, I21.9) Status: Active Name Dates Details Family history of Heart attack (410.90, I21.9) Status: Active Social History Name Dates Details - Status: Name Dates Details Never smoker Vital Signs Date Test Result Details [id number] BP Systolic 150 mm[Hg] Status: BP Diastolic 59 mm[Hg] Status: Height 64 in Status: Weight 185 lb Status: Body Mass Index Calculated 31.76 kg/m2 Status: Body Surface Area Calculated 1.89 m2 Status: Heart Rate 69 /min Status: [id number] BP Systolic 129 mm[Hg] Status: BP Diastolic 45 mm[Hg] Status: Height 64 in Status: Weight 185 lb Status: Body Mass Index Calculated 31.76 kg/m2 Status: Body Surface Area Calculated 1.89 m2 Status: Heart Rate 77 /min Status: Results Date Description Value Details Results not documented Plan of Care Name Dates Details Planned Observations Planned Goals not documented Planned Encounters Appointment; SANDRITA DISLA M.D.|DDS On: 29-Oct-2018 13:30 Interventions Provided Labs/Procedures/ImagingPET CT Tumor imaging initial skull-[place] [id number]; To Be Done: 08 Oct 2018Discussion/SummaryImpression: 78 yo f [id number] - right 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:imaging : demonstrates erosive mass into this region - with slightly enlarged lymphadenopathy - ipsilateral neckI d/w at length surgery vs radiation vs chemotherapypreferred treatment surgery with postop aduvant therapy as indicated by final pathd/w at length access - jelani carey - reconstruction options rfff, fibula, obturator,patient aware of potential complications etc.i d /w at length re: progression of disease, surgery, radiation, postop , final pathology, healing, recovery, tracheostomy, feeding tube, surveillance.i d/w loss of orbital floor,also d/w dr sidhu has met the patientd/w radial forearm free flap for reconstructionrisk to wrist,hand , flap failure, obturatorrecovery, wound carept aware of risk for PORT, chemotherapy Instructions Name Dates Details Instructions not documented Encounters Appointment; SANDRITA DISLA M.D.|NELLYS On: 24-Sep-2018 13:30 Encounter Diagnosis: Problem not documented Appointment; SANDRITA DISLA M.D.|DDS On: 08-Oct-2018 13:30 Encounter Diagnosis: Problem not documented"
[2018-11-19 12:19] LABS: Absolute Lymphocytes (CBC) 1.8 K/uL (0.7-4.9); Absolute Neutrophil 11.4 K/uL (1.8-8.0); Eosinophils % 0.5 % (0-4.4); Hematocrit 21.2 % (36.0-45.0); Lymphocytes % 11.8 % (15.3-44.8); MPV 6.5 fL (7.6-11.3); Monocytes % 13.1 % (3.3-12.3); RBC Red Blood Cell Count 2.76 M/uL (3.86-4.86)
[2018-11-19 12:41] LABS: Albumin 3.1 g/dL (3.4-5.0); Bilirubin Direct 0.1 mg/dL (0-0.2); Bilirubin Total 0.3 mg/dL (0.2-1.0); Potassium 4.6 mmol/L (3.5-5.1)
--- NOTE | 2018-11-19 13:41 | RAD REPORT ---
EXAM DESCRIPTION: CT - Abdomen Pelvis Wo Contrast - 11/19/2018 1:15 pm CLINICAL HISTORY: Fall, abdominal and pelvic pain, history of bleeding hemorrhoids COMPARISON: None. TECHNIQUE: Axial [address] imaging of the abdomen and pelvis was performed without IV contrast. No IV contrast was given because of allergy, abnormal renal function, patient refusal or physician re quest. No oral contrast. Sagittal and coronal spine reconstruction generated and reviewed. All CT scans are performed using dose optimization technique as appropriate and may include automated exposure control or mA/KV adjustment according to patient size. FINDINGS: Lung base scarring is present. No pneumothorax or pleural effusion. No pericardial effusio n. The liver, spleen and pancreas show no suspicious findings on non-contrast imaging. Punctate gallston es are present. No active gallbladder process seen. No biliary tree dilatation. No hydronephrosis or suspicious renal mass. No significant adrenal finding. Isodense renal masses an d pyelonephritis cannot be excluded in the absence of IV contrast. The urinary bladder is without sig nificant finding. Uterus is absent. Ovaries are absent or atrophic. No adnexal abnormality. No stomach or small bowel acute finding. Moderate stool volume scattered in the colon. No acute colon process. The perianal region is inherently limited on CT imaging. No free air or free fluid in the p eritoneal or retroperitoneal spaces. No hernia, mass or bulky lymphadenopathy. Minimal contusion or edema changes are evident in the left side gluteal fatty tissues near the ischiu m and medial border of the gluteus musculature. No measurable hematoma. Disc and bony degenerative changes are present. No compression fracture identifiable. Irregular conto urs seen in the coccyx segments. Nondisplaced fracture is possible if the patient has localizing symp toms. Dense arterial tree calcifications are present. IMPRESSION: Mild contusion or edema changes are present in the left-side gluteal fatty tissues. No s pine or sacrum fracture. Nondisplaced coccyx fracture is not excluded. No acute or emergent CT abdomen or pelvis finding otherwise noted. Patient has incidental note of pun ctate gallstones. Full assessment is limited is the absence of IV contrast.
--- NOTE | 2018-11-19 15:06 | ER ---
Nurse's Notes [facility] Name: Xuan Betts Age: 78 yrs Sex: Female : 1940 Arrival Date: 11/19/2018 Time: 11:30 Bed 13 Private MD: Diagnosis: Weakness, fall, rectal bleeding, anemia Presentation: 11/19 11:34 Presenting complaint: Child states: she fell last night on her bottom and a week ago, tw2 she has a bleeding hemorrhoid but were thinking it might be something more. Transition of care: patient was not received from another setting of care. Onset of symptoms was November 19, 2018. Risk Assessment: Do you want to hurt yourself or someone else? Patient reports no desire to harm self or others. Initial Sepsis Screen: Does the patient meet any 2 criteria? No. Patient's initial sepsis screen is negative. Does the patient have a suspected source of infection? No. Patient's initial sepsis screen is negative. Care prior to arrival: None. 11:34 Method Of Arrival: Wheelchair tw2 11:34 Acuity: SARAHY 3 tw2 Triage Assessment: 11:43 General: Appears in no apparent distress. well groomed. Pain: Complains of pain in tw2 buttocks and mouth. Historical: - Allergies: 11:42 NSAIDS (Non-Steroidal Anti-Inflammatory Drug); tw2 11:42 meperidine HCl; tw2 11:42 Codeine; tw2 11:42 Iodine; tw2 11:42 Demerol; tw2 - Home Meds: 11:42 amlodipine 10 mg tab 1 tab once daily [Active]; atorvastatin 40 mg oral tab 1 tab once tw2 daily [Active]; aspirin 81 mg Oral chew 1 tab once daily [Active]; Insulin: Novolin 70/30 80 units am, 60 units pm Sub-Q [Active]; docusate sodium 100 mg Oral tab 1 tab 2 times per day [Active]; gabapentin 300 mg oral cap 1 cap 2 times per day [Active]; carvedilol 3.125 mg oral tab 1 tab 2 times per day [Active]; levothyroxine 100 mcg tab 1 tab once daily [Active]; pantoprazole 40 mg oral TbEC 1 tab once daily [Active]; Xarelto 20 mg oral tab 1 tab once daily [Active]; sertraline 25 mg oral tab 1 tab once daily [Active]; - PMHx: 11:42 oral cancer; Diabetes - IDDM; Hyperlipidemia; Hypertension; CVA; 2014; Arthritis; tw2 11:43 "carotid blockages"; tw2 - PSHx: 11:42 Lobectomy; Hysterectomy; Exploratory lap; Appendectomy; Mastectomy, Left; tw2 - Immunization history:: Adult Immunizations. - Social history:: Smoking status: . - Ebola Screening: : Patient denies travel to an Ebola-affected area in the 21 days before illness onset. Screenin:00 Abuse screen: Denies threats or abuse. Denies injuries from another. Nutritional jl7 screening: No deficits noted. Tuberculosis screening: No symptoms or risk factors identified. Fall Risk IV access (20 points). Total Burnett Fall Scale indicates No Risk (0-24 pts). Primary Survey: 11:44 NO uncontrolled hemorrhage observed. A: The patient is alert. Airway: patent. tw2 Breathing/Chest: Respiratory pattern: regular, Respiratory effort: spontaneous, unlabored. Circulation: Skin temperature: warm, dry. Disability Alert. Exposure/Environment: A warming method has been applied: pt is wearing jacket. Assessment: 11:59 Reassessment: Pt had a left mastectomy, no IV sticks or BP to left arm. jl7 12:00 General: Appears in no apparent distress. uncomfortable, Behavior is calm, cooperative, jl7 appropriate for age. Pain: Complains of pain in buttocks Pain does not radiate. Pain currently is 6 out of 10 on a pain scale. Quality of pain is described as aching. Neuro: Level of Consciousness is awake, alert, obeys commands, Oriented to person, place, time, situation. Cardiovascular: Patient's skin is warm and dry. Respiratory: Airway is patent Respiratory effort is even, unlabored, Respiratory pattern is regular, symmetrical. GI: No signs and/or symptoms were reported involving the gastrointestinal system. : No signs and/or symptoms were reported regarding the genitourinary system. EENT: No signs and/or symptoms were reported regarding the EENT system. Derm: Skin is dry, Skin is pale, Skin temperature is warm. Musculoskeletal: No signs and/or symptoms reported regarding the musculoskeletal system. 13:00 Reassessment: Patient appears in no apparent distress at this time. No changes from jl7 previously documented assessment. Patient and/or family updated on plan of care and expected duration. Pain level reassessed. Patient is alert, oriented x 3, equal unlabored respirations, skin warm/dry/pink. 14:00 Reassessment: Pt cleaned of stool and brief changed. jl7 15:00 Reassessment: Patient appears in no apparent distress at this time. Patient and/or jl7 family updated on plan of care and expected duration. Pain level reassessed. Patient is alert, oriented x 3, equal unlabored respirations, skin warm/dry/pink. 16:15 Reassessment: Pt c/o nausea and pain to the buttocks, ERP notified, see MAR for orders. jl7 17:00 Reassessment: Pt laying in bed with eyes closed, respirations even and unlabored, no jl7 signs of distress noted at this time. Family remains at bedside. Vital Signs: 11:35 BP 125 / 53; Pulse 88; Resp 17; Temp 99.4(O); Pulse Ox 100% on R/A; Weight 86.18 kg tw2 (R); Height 5 ft. 5 in. (165.10 cm); Pain 5/10; 13:44 BP 122 / 55; Pulse 84; Resp 20; Temp 99.4; Pulse Ox 99% on R/A; mh5 15:30 BP 106 / 54; Pulse 99; Resp 15 S; Pulse Ox 98% on R/A; jl7 17:00 BP 112 / 51; Pulse 97; Resp 16 S; Pulse Ox 96% on R/A; jl7 11:35 Body Mass Index 31.62 (86.18 kg, 165.10 cm) tw2 ED Course: 11:30 Patient arrived in ED. mr 11:35 Triage completed. tw2 11:35 Arm band placed on. tw2 11:47 Qi Jhaveri, MARBIN is Primary Nurse. jl7 11:51 Remigio Dougherty MD is Attending Physician. kdr 12:00 Patient has correct armband on for positive identification. Bed in low position. Call 7 light in reach. Side rails up X2. monitoring manager on. Pulse ox on. NIBP on. 12:00 Initial lab(s) drawn, by [facility], sent to lab. Inserted saline lock: 22 gauge in right jl7 forearm, using aseptic technique. Blood collected. 13:16 CT Abd/Pelvis - Without Cont In Process Unspecified. EDMS 13:22 CT completed. Patient tolerated procedure well. Patient moved back from CT. em2 15:03 Garcia Stahl DO is Hospitalizing Provider. kdr 17:33 No provider procedures requiring assistance completed. Patient admitted, IV remains in jl7 place. intact, No redness/swelling at site. Administered Medications: 16:25 Drug: Zofran 4 mg Route: IVP; Site: right forearm; jl7 17:00 Follow up: Response: No adverse reaction; Nausea is decreased jl7 16:30 Drug: morphine 2 mg Route: IVP; Site: right forearm; jl7 17:00 Follow up: Response: No adverse reaction; Pain is decreased jl7 Outcome: 15:05 Decision to Hospitalize by Provider. kdr 17:33 Admitted to Tele accompanied by tech, family with patient, via stretcher, room 410, jl7 with chart, Report called to MARBIN Dennis 17:33 Condition: stable 17:33 Discharge instructions given to patient, family, Instructed on the need for admit, Demonstrated understanding of instructions. 17:34 Patient left the ED. jl7 Signatures: Dispatcher [employer] EDMS Remigio Dougherty MD MD kdr Rivera, Nathaniel Booker em2 Laina Selby RN RN 2 Sharri Ramos 5 Qi Jhaveri RN RN jl7 Corrections: (The following items were deleted from the chart) 17:40 14:00 Reassessment: Pt c/o nausea and pain to the buttocks, ERP notified, see MAR for jl7 orders jl7 17:40 16:15 Reassessment: Pt laying in bed with eyes closed, respirations even and unlabored, jl7 no signs of distress noted at this time. Family remains at bedside jl7
--- NOTE | 2018-11-19 15:06 | EDPHYS ---
Physician Documentation [facility] Name: Xuan Betts Age: 78 yrs Sex: Female : 1940 Arrival Date: 11/19/2018 Time: 11:30 Bed 13 Private MD: ED Physician Remigio Dougherty HPI: 11/19 17:24 This 78 yrs old Female presents to ER via Wheelchair with complaints of kdr Rectal Bleeding, Fall Injury. 17:24 The patient presents to the emergency department with bleeding from the rectum/anus, kdr that is mild. Onset: The symptoms/episode began/occurred gradually, at an unknown time. Context: the patient has had trauma to the rectal area, Post fall. Modifying factors: The symptoms are alleviated by nothing, The symptoms are aggravated by. Associate signs and symptoms: Pertinent positives:. The patient has experienced similar episodes in the past, a few times. The patient has been recently seen by a physician:. The patient has become increasingly weak over the last few weeks. Last night, when she tried to get to a bedside commode she fell to the ground. She had to call for her son to help her get back into bed. Since then, she has had generalized pain and the family is concerned that she may have fractured something. The daughter as caregiver also notes that the patient has been having copious BRBPR including some material that may be purulent in nature. Historical: - Allergies: 11:42 NSAIDS (Non-Steroidal Anti-Inflammatory Drug); tw2 11:42 meperidine HCl; tw2 11:42 Codeine; tw2 11:42 Iodine; tw2 11:42 Demerol; tw2 - Home Meds: 11:42 amlodipine 10 mg tab 1 tab once daily [Active]; atorvastatin 40 mg oral tab 1 tab once tw2 daily [Active]; aspirin 81 mg Oral chew 1 tab once daily [Active]; Insulin: Novolin 70/30 80 units am, 60 units pm Sub-Q [Active]; docusate sodium 100 mg Oral tab 1 tab 2 times per day [Active]; gabapentin 300 mg oral cap 1 cap 2 times per day [Active]; carvedilol 3.125 mg oral tab 1 tab 2 times per day [Active]; levothyroxine 100 mcg tab 1 tab once daily [Active]; pantoprazole 40 mg oral TbEC 1 tab once daily [Active]; Xarelto 20 mg oral tab 1 tab once daily [Active]; sertraline 25 mg oral tab 1 tab once daily [Active]; - PMHx: 11:42 oral cancer; Diabetes - IDDM; Hyperlipidemia; Hypertension; CVA; 2014; Arthritis; tw2 11:43 "carotid blockages"; tw2 - PSHx: 11:42 Lobectomy; Hysterectomy; Exploratory lap; Appendectomy; Mastectomy, Left; tw2 - Immunization history:: Adult Immunizations. - Social history:: Smoking status: . - Ebola Screening: : Patient denies travel to an Ebola-affected area in the 21 days before illness onset. ROS: 17:24 Constitutional: Negative for fever, chills, and weight loss - she has been becoming kdr increasingly weak Eyes: Negative for injury, pain, redness, and discharge, Neck: Negative for injury, pain, and swelling, Cardiovascular: Negative for chest pain, palpitations, and edema, Respiratory: Negative for shortness of breath, cough, wheezing, and pleuritic chest pain, Abdomen/GI: Negative for abdominal pain, nausea, vomiting, diarrhea, and constipation, : Negative for injury, bleeding, discharge, and swelling, MS/Extremity: Negative for injury and deformity, Skin: Negative for injury, rash, and discoloration, Neuro: Negative for headache, weakness, numbness, tingling, and seizure activity. Psych: Negative for depression, anxiety, suicide ideation, homicidal ideation, and hallucinations, Allergy/Immunology: Negative for hives, rash, and allergies, Endocrine: Negative for neck swelling, polydipsia, polyuria, polyphagia, and marked weight changes, Hematologic/Lymphatic: Negative for swollen nodes, abnormal bleeding, and unusual bruising. 17:24 Back: Positive for pain with movement, of the sacrum. Exam: 17:24 Constitutional: This is a well developed, well nourished patient who is awake, alert, kdr and in no acute distress. Head/Face: Normocephalic, atraumatic. Eyes: Pupils equal round and reactive to light, extra-ocular motions intact. Lids and lashes normal. Conjunctiva and sclera are non-icteric and not injected. Cornea within normal limits. Periorbital areas with no swelling, redness, or edema. Neck: Trachea midline, no thyromegaly or masses palpated, and no cervical lymphadenopathy. Supple, full range of motion without nuchal rigidity, or vertebral point tenderness. No Meningismus. Chest/axilla: Normal chest wall appearance and motion. Nontender with no deformity. No lesions are appreciated. Respiratory: Lungs have equal breath sounds bilaterally, clear to auscultation and percussion. No rales, rhonchi or wheezes noted. No increased work of breathing, no retractions or nasal flaring. Abdomen/GI: Soft, non-tender, with normal bowel sounds. No distension or tympany. No guarding or rebound. No evidence of tenderness throughout. Back: No spinal tenderness except for low coccyx area. No costovertebral tenderness. Limited range of motion second to body habitus Vital Signs: 11:35 BP 125 / 53; Pulse 88; Resp 17; Temp 99.4(O); Pulse Ox 100% on R/A; Weight 86.18 kg tw2 (R); Height 5 ft. 5 in. (165.10 cm); Pain 5/10; 13:44 BP 122 / 55; Pulse 84; Resp 20; Temp 99.4; Pulse Ox 99% on R/A; mh5 15:30 BP 106 / 54; Pulse 99; Resp 15 S; Pulse Ox 98% on R/A; jl7 17:00 BP 112 / 51; Pulse 97; Resp 16 S; Pulse Ox 96% on R/A; jl7 11:35 Body Mass Index 31.62 (86.18 kg, 165.10 cm) tw2 MDM: 15:05 Patient medically screened. kdr 17:24 Data reviewed: vital signs, nurses notes, lab test result(s), radiologic studies. kdr Counseling: I had a detailed discussion with the patient and/or guardian regarding: the historical points, exam findings, and any diagnostic results supporting the discharge/admit diagnosis, lab results, radiology results, the need for further work-up and treatment in the hospital. 11/19 11:51 Order name: Basic Metabolic Panel; Complete Time: 15:10 kdr 11/19 11:51 Order name: CBC with Diff kdr 11/19 11:51 Order name: Creatinine for Radiology; Complete Time: 15:10 kdr 11/19 11:51 Order name: Hepatic Function; Complete Time: 15:10 kdr 11/19 11:51 Order name: Lipase; Complete Time: 15:10 kdr 11/19 12:39 Order name: Type And Screen kdr 11/19 11:51 Order name: IV Saline Lock; Complete Time: 12:19 kdr 11/19 12:43 Order name: Bb Add On eb 11/19 12:46 Order name: CT Abd/Pelvis - Without Cont; Complete Time: 15:10 kdr 11/19 14:14 Order name: Packed RBC Leukored -1 EDMO 11/19 14:18 Order name: ABO/RH no charge; Complete Time: 15:10 EDMO 11/19 14:47 Order name: Diet Clear Liquid; Complete Time: 14:48 jl7 11/19 11:51 Order name: Labs collected and sent; Complete Time: 12:19 kdr Administered Medications: 16:25 Drug: Zofran 4 mg Route: IVP; Site: right forearm; jl7 17:00 Follow up: Response: No adverse reaction; Nausea is decreased jl7 16:30 Drug: morphine 2 mg Route: IVP; Site: right forearm; jl7 17:00 Follow up: Response: No adverse reaction; Pain is decreased 7 Disposition: 11/19/18 15:05 Hospitalization ordered by Garcia Stahl for Observation. Preliminary diagnosis is Weakness, fall, rectal bleeding, anemia. - Bed requested for Telemetry/MedSurg (observation). - Status is Observation. jl7 - Condition is Stable. - Problem is an acute exacerbation. - Symptoms have improved. UTI on Admission? No Signatures: Dispatcher [employer] [facility] Remigio Dougherty MD MD [facility] Laina Selby RN RN tw2 Qi Jhaveri RN RN jl7 Gini Quiroz Corrections: (The following items were deleted from the chart) 16:48 15:05 Hospitalization Ordered by Garcia Stahl DO for Observation. Preliminary eb diagnosis is Weakness, fall, rectal bleeding, anemia. Bed requested for Telemetry/MedSurg (observation). Status is Observation. Condition is Stable. Problem is an acute exacerbation. Symptoms have improved. UTI on Admission? No. kdr 17:34 16:48 11/19/2018 15:05 Hospitalization Ordered by Garcia Stahl DO for Observation. [email or web address] Preliminary diagnosis is Weakness, fall, rectal bleeding, anemia. Bed requested for Telemetry/MedSurg (observation). Status is Observation. Condition is Stable. Problem is an acute exacerbation. Symptoms have improved. UTI on Admission? No. eb
[2018-11-19] MEDS ORDERED: MORPHINE 4 MG/ML SYR ONE (16:24)
[2018-11-19] MEDS ORDERED: ONDANSETRON 4 MG/2 ML VIAL ONE (16:24)
--- NOTE | 2018-11-19 17:39 | P.HP ---
Certification for Inpatient Patient admitted to: Observation With expected LOS: <2 Midnights Patient will require the following post-hospital care: Home Health Services Practitioner: I am a practitioner with admitting privileges, knowledge of patient current condition, hospital course, and medical plan of care. Services: Services provided to patient in accordance with Admission requirements found in Title 42 Section 412.3 of the Code of Federal Regulations Patient History Date of Service: 11/19/18 Primary Care Provider: Dr. Mix; Cardiology-Dr. Rucker; Oncology-[facility] Reason for admission: Fatigue History of Present Illness: 78-year-old female brought in to the emergency room for fatigue. Patient has been reporting fatigue over the last several days. She apparently fell last night. Patient reported some rectal bleeding. This was noted by the daughter who was present. Daughter reports complicated history. Daughter reports patient has hemorrhoids and rectocele. Daughter also reports the patient has been hospitalized recently in September. She was life flighted for possible CVA. Patient with history of diabetes, hypertension, CVA, carotid arterial disease, atrial fibrillation, oral cancer and prior breast cancer. At her last hospitalization at [facility] she had a full assessment concerning her possible CVA. At that time she was assessed for dysphagia. She had endoscopy which showed esophageal stenosis. He had a dilation at that time. During that course she was found to have severe carotid arterial disease. This was addressed by CV surgery. CV surgery recommended no intervention due to her comorbidities. Cardiology recommended to continue with aspirin 81 mg daily and Xarelto 20 mg daily to prevent further CVA. Patient also has underlying oral cancer. Patient seen at [facility] for this. 2 surgeons have decline surgery because of her comorbidities. In the ER patient evaluated. Patient found to be severely anemic with a hemoglobin of 6.7. Prior hemoglobin in August was around 10. White count 15.6 , sodium 140, potassium 4.6, BUN of 26, creatinine 1.24 with a GFR of 29. Glucose 179. CT of the abdomen and pelvis showed left gluteal contusion. No significant other of other abnormality noted. ER performed evaluation of rectum. No hemorrhoids identified. No rectal bleeding identified. I was asked to admit the patient for possible further evaluation. When I saw the patient ER, she appeared dehydrated. Patient appeared comfortable. Allergies iodine [Iodine] Allergy (Severe, Verified 09/19/14 20:33) Anaphylaxis codeine Adverse Reaction (Verified 09/19/14 20:33) Nausea/Vomiting meperidine HCl [From Demerol] Adverse Reaction (Verified 09/19/14 20:33) Nausea/Vomiting NSAIDS (Non-Steroidal Anti-Inflamma Adverse Reaction (Verified 09/19/14 20:33) Nausea/Vomiting Home medications list reviewed: Yes Home Medications: Alprazolam [Xanax] 0.5 mg PO BEDTIME 02/26/12 Furosemide 20 mg PO DAILY 02/26/12 Levothyroxine Sodium [Synthroid] 0.112 mg PO DAILY 02/26/12 Lisinopril [Prinivil] 5 mg PO DAILY 02/26/12 Metoprolol Succinate [Toprol Xl] 100 mg PO DAILY 02/26/12 Atorvastatin Calcium [Lipitor] 20 mg PO BEDTIME #0 tablet 02/27/12 Liraglutide [Victoza 2-Samy] 1.2 mg PO DAILY 09/20/14 Rivaroxaban [Xarelto] 20 mg PO DAILY #30 tablet 09/20/14 - Past Medical/Surgical History Diabetic: Yes -: Diabetes mellitus type 2, insulin dependent -: Hypertension -: History of CVA 2013 -: Hyperlipidemia -: Atrial fibrillation on chronic anti coagulation -: Dysphagia -: Esophageal stenosis -: GERD -: Oral cancer -: History breast cancer -: left lower lobectomy, Exploatory lap appy -: left masectomy -: hysterectomy. Psychosocial/ Personal History: Patient is . She lives at home - Family History Family History: Reviewed- Non-Contributory - Family History Father -: Heart disease, Kidney disease Notes: 3 bypasses Mother -: Heart disease, GI disease Notes: bypasses. open heart surgery. - Social History Smoking Status: Never smoker Alcohol use: Yes CD- Drugs: No Caffeine use: Yes Place of Residence: Home Review of Systems General: Weakness, As per HPI Eyes: Unremarkable ENT: As per HPI Respiratory: Unremarkable Cardiovascular: Unremarkable Gastrointestinal: Hematochezia, As per HPI Genitourinary: Unremarkable Musculoskeletal: Unremarkable Integumentary: Unremarkable Neurological: As per HPI Lymphatics: Unremarkable Physical Examination - Physical Exam General: Alert, In no apparent distress, Oriented x3, Cooperative HEENT: Atraumatic, Other (Dry mucous membranes noted.) Neck: Supple Respiratory: Clear to auscultation bilaterally, Normal air movement Cardiovascular: Normal pulses, Regular rate/rhythm Gastrointestinal: Normal bowel sounds, Soft and benign, Non-distended, No tenderness, No masses, No rebound, No guarding Musculoskeletal: No erythema, No tenderness, No warmth Integumentary: Tenderness/swelling (Nonpitting edema noted to the lower extremities right greater than left) Neurological: Normal speech, Normal strength at 5/5 x4 extr, Normal tone, Normal affect - Studies Laboratory Data (last 24 hrs) 11/19/18 12:09: Creatinine 1.74 H 11/19/18 12:09: WBC 15.6 H, Hgb 6.7 L*, Hct 21.2 L, Plt Count 534 H 11/19/18 12:09: Sodium 140, Potassium 4.6, BUN 26 H, Creatinine 1.72 H, Glucose 179 H, Total Bilirubin 0.3, AST 19, ALT 14, Alkaline Phosphatase 135 H, Lipase 126 Assessment and Plan - Plan Impression: Fatigue likely related to acute on chronic anemia Acute on chronic renal failure History of esophageal stenosis with dilation and mild dysphagia Rectocele Diabetes mellitus type 2, insulin-dependent Hypertension Atrial fibrillation on chronic anti coagulation therapy History CVA Carotid arterial disease Oral cancer History of breast cancer Plan: Fatigue likely related to acute on chronic anemia: Patient appears to have acute on chronic anemia for multiple causes. Patient on chronic anti coagulation for suspected history of atrial fibrillation and history of CVA. Cardiology and neurology have recommended not to discontinue aspirin and Xarelto. Will continue with this medication. Will transfuse 2 units and reassess. Will have physical therapy assess ambulation. Case discussed with GI. Likely no need for intervention at this time. Patient may require home health with physical therapy verses skilled placement. Acute on chronic renal failure: Will provide IV fluids. Suspect this is acute on chronic renal failure. Nephrology consulted. Will monitor this closely. Will provide stool softener. History of esophageal stenosis with dilation and mild dysphagia: Patient has had major workup recently. Continue with PPI. Diabetes mellitus type 2, insulin-dependent: Will provide sliding scale. Hypertension: Will continue with home medication. Atrial fibrillation on chronic anti coagulation therapy: Patient and family report that it has been advised by her staff training and development manager and neurologist to continue with aspirin and Xarelto. History CVA: Continue as above. Carotid arterial disease: Patient seen by CV surgery. Surgery is not recommended due to her chronic medical conditions. Patient high risk for surgery. Oral cancer: Patient is seen at [facility]. Patient high risk for surgery and possible radiation chemotherapy. Discharge Plan: Home Plan to discharge in: 48 Hours - Advance Directives Does patient have a Living Will: No Does patient have a Durable POA for Healthcare: No - Code Status/Comfort Care Code Status Assessed: Yes (Patient is DNR) Time Spent Managing Pts Care (In Minutes): 55
[2018-11-19] MEDS ORDERED: ONDANSETRON 4 MG/2 ML VIAL IV PRN (17:55)
[2018-11-19] MEDS: INSULIN -REGULAR HUMAN 50 UNIT/0.5 ML ML SQ SCH ×2 (17:55→21:00)
[2018-11-19 18:39] VITALS: BMI 31.6
[2018-11-19 19:03] LABS: Thyroid Stimulating Hormone 2.16 uIU/mL (0.360-3.740)
[2018-11-19] MEDS: NA CHLORIDE 0.9% 1,000 ML IV SCH (19:24)
[2018-11-19] MEDS: RIVAROXABAN 10 MG TABLET PO SCH (19:24)
--- NOTE | 2018-11-19 19:40 | RAD REPORT ---
EXAM DESCRIPTION: US - Renal Ultrasound-Complete - 11/19/2018 7:31 pm CLINICAL HISTORY: evaluate for renal disease COMPARISON: No comparisons FINDINGS: Both kidneys are normal in size, shape and echotexture. The right kidney measures 9.1 x 4.2 x 3.9 cm. No hydronephrosis, focal mass or perinephric fluid. The left kidney measures 10.5 x 6.0 x 4.9 cm. No hydronephrosis, focal mass or perinephric fluid. The urinary bladder is incompletely distended without gross abnormality seen. IMPRESSION: Unremarkable renal sonogram.
[2018-11-19] MEDS: GABAPENTIN 300 MG CAP PO SCH (20:59)
[2018-11-19] MEDS: ATORVASTATIN 40 MG TAB PO SCH (20:59)
[2018-11-19] MEDS: DOCUSATE NA/SENNA CONC 1 TAB PO SCH (20:59)
[2018-11-19] MEDS: CARVEDILOL 6.25 MG TAB PO SCH (21:00)
[2018-11-19] MEDS: ACETAMINOPHEN 500 MG TAB PO PRN ×2 (21:00→23:46)
[2018-11-19] MEDS ORDERED: INFLUENZA VACCINE (for 3y+) 0.5 ML DOSE IMVAC ONE (21:00)
[2018-11-19] MEDS ORDERED: NA CHLORIDE 0.9% 500 ML ONE (23:36)
[2018-11-20 01:49] LABS: Urine Appearance CLOUDY; Urine Bilirubin NEGATIVE (NEG); Urine Blood 2+ (NEG); Urine Color YELLOW; Urine Glucose NEGATIVE (NEG); Urine Protein 2+ (NEG); Urine Urobilinogen 0.2 mg/dL (0.2-1.0); Urine pH 7.5 (5.0-7.0)
[2018-11-20 02:21] LABS: Urine Microscopic Reflex ORDER UMIC
[2018-11-20 02:52] LABS: Urine Bacteria LOADED /HPF (<20); Urine Culture Reflex Order REFLEXED
[2018-11-20 02:53] LABS: Urine RBC <5 /HPF (NONE SEEN)
[2018-11-20] MEDS ORDERED: NA CHLORIDE 0.9% 500 ML ONE (05:53)
[2018-11-20 06:27] LABS: Absolute Lymphocytes (CBC) 1.9 K/uL (0.7-4.9); Absolute Monocytes 1.9 K/uL (0.1-1.3); Absolute Neutrophil 7.7 K/uL (1.8-8.0); Basophils % 1.2 % (0-1.3); Eosinophils % 1.8 % (0-4.4); Hematocrit 23.3 % (36.0-45.0); Lymphocytes % 15.8 % (15.3-44.8); MPV 6.9 fL (7.6-11.3); Monocytes % 15.8 % (3.3-12.3); RBC Red Blood Cell Count 2.93 M/uL (3.86-4.86)
[2018-11-20 06:39] LABS: Magnesium 2.6 mg/dL (1.8-2.4)
[2018-11-20] MEDS: INSULIN -REGULAR HUMAN 50 UNIT/0.5 ML ML SQ SCH ×4 (07:30→20:54)
[2018-11-20] MEDS ORDERED: PANTOPRAZOLE 40MG TABLET PO SCH (07:30)
[2018-11-20 07:54] LABS: Anisocytosis 2+; Blood Morphology Comment NOTED (NOT SEEN); Platelet Estimate INCR; Poikilocytosis 1+; Urine White Blood Cell Casts OK
[2018-11-20] MEDS: ACETAMINOPHEN 500 MG TAB PO PRN ×3 (08:35→17:34)
[2018-11-20] MEDS: SERTRALINE HCL 50 MG TAB PO SCH (08:35)
[2018-11-20] MEDS: LACTOBACILLUS/ACIDOPHILUS TAB PO SCH (08:35)
[2018-11-20] MEDS: AMLODIPINE 10 MG TAB PO SCH (08:35)
[2018-11-20] MEDS: CARVEDILOL 6.25 MG TAB PO SCH ×2 (08:36→20:54)
[2018-11-20] MEDS: GABAPENTIN 300 MG CAP PO SCH ×2 (08:36→20:54)
[2018-11-20] MEDS: ASPIRIN EC 81 MG TAB PO SCH (08:36)
[2018-11-20] MEDS ORDERED: FUROSEMIDE 20 MG/ 2ML VIAL IV ONE (10:08)
[2018-11-20] MEDS: CEFTRIAXONE/SWI 1gm 1 GM/10 ML SYR IV SCH (10:21)
[2018-11-20] MEDS ORDERED: DIPHENHYDRAMINE 25 MG TAB/CAP PO PRN (11:41)
--- NOTE | 2018-11-20 11:50 | P.PN ---
Subjective Date of Service: 11/20/18 Primary Care Provider: Dr. Mix; Cardiology-Dr. Rucker; Oncology-[facility] Chief Complaint: Fatigue Subjective: Doing well (Patient doing well post transfusion. Family at bedside. Patient had fever last night.) Physical Examination - Vital Signs Temperature: 98.9 F Blood Pressure: 134/63 Pulse: 88 Respirations: 20 Pulse Ox (%): 92 - Physical Exam General: Alert, In no apparent distress, Oriented x3 HEENT: Atraumatic Neck: Supple Respiratory: Clear to auscultation bilaterally, Normal air movement Cardiovascular: Normal pulses, Regular rate/rhythm Gastrointestinal: Normal bowel sounds, Soft and benign, Non-distended, No masses , No rebound, No guarding Musculoskeletal: No tenderness, No warmth Integumentary: No tenderness/swelling, No erythema, No warmth, No cyanosis Neurological: Normal speech, Normal strength at 5/5 x4 extr, Normal tone - Studies Laboratory Data (last 24 hrs) 11/19/18 12:09: Creatinine 1.74 H 11/19/18 12:09: WBC 15.6 H, Hgb 6.7 L*, Hct 21.2 L, Plt Count 534 H 11/19/18 12:09: Sodium 140, Potassium 4.6, BUN 26 H, Creatinine 1.72 H, Glucose 179 H, Total Bilirubin 0.3, AST 19, ALT 14, Alkaline Phosphatase 135 H, Lipase 126 Medications List Reviewed: Yes Assessment & Plan Discharge Plan: Other (halfway facility) Plan to discharge in: 48 Hours Physician Review Additional Text: Impression: Fatigue likely related to acute on chronic anemia Acute on chronic renal failure History of esophageal stenosis with dilation and mild dysphagia Fever likely UTI Rectocele Diabetes mellitus type 2, insulin-dependent Hypertension Atrial fibrillation on chronic anti coagulation therapy History CVA Carotid arterial disease Oral cancer History of breast cancer Plan: Fatigue likely related to acute on chronic anemia: Patient appears to have acute on chronic anemia for multiple causes. Patient on chronic anti coagulation for history of atrial fibrillation and history of CVA. Cardiology and neurology have recommended not to discontinue aspirin and Xarelto as per family. Will continue with this medication. Patient has received 2 units of blood. Will recheck hemoglobin and monitor closely. Case discussed with GI. No plan for intervention at this time. Patient with a recent EGD requiring us esophageal dilation. Will ambulate with physical therapy. Case discussed with social services coordinator and family to consider skilled placement. Patient agrees. They are looking at a skilled facility in [place] near [facility] where she can continue her care. Fever likely UTI: Will start on IV medication. Await urine and blood culture results. Acute on chronic renal failure: Will continue with IV fluids. Await recommendations from nephrology. History of esophageal stenosis with dilation and mild dysphagia: Patient has had major workup recently. Continue with PPI. Patient has required PEG tube in the last. No longer with PEG tube. Diabetes mellitus type 2, insulin-dependent: Will provide sliding scale. Hypertension: Will continue with home medication. Will monitor and address appropriately. Atrial fibrillation on chronic anti coagulation therapy: Patient and family report that it has been advised by her classified advertising supervisor and neurologist to continue with aspirin and Xarelto. Cardiology consulted for further recommendation. History CVA: Continue as above. Carotid arterial disease: Patient seen by CV surgery. Surgery is not recommended due to her chronic medical conditions. Patient high risk for surgery. Oral cancer: Patient is seen at [facility]. Patient high risk for surgery and possible radiation chemotherapy. Patient and family are looking in to radiation palliation. They do not plan to be aggressive on treatment. Rectocele: Will monitor this closely. Will continue with stool softener. Time Spent Managing Pts Care (In Minutes): 55
[2018-11-20 13:05] LABS: Hematocrit 25.3 % (36.0-45.0)
[2018-11-20] MEDS: NA CHLORIDE 0.9% 1,000 ML IV SCH ×3 (13:55→20:57)
[2018-11-20 17:32] LABS: Hematocrit 25.3 % (36.0-45.0)
[2018-11-20] MEDS: RIVAROXABAN 10 MG TABLET PO SCH (17:34)
[2018-11-20] MEDS: DOCUSATE NA/SENNA CONC 1 TAB PO SCH (20:53)
[2018-11-20] MEDS: ATORVASTATIN 40 MG TAB PO SCH (20:53)
[2018-11-20] MEDS: PANTOPRAZOLE 40MG TABLET PO SCH (20:54)
[2018-11-20] MEDS: MAGNESIUM OXIDE 400 MG TAB PO SCH (20:54)
--- NOTE | 2018-11-20 21:38 | P.CNS ---
Date of Consult: 11/20/18 Reason for Consult: JASMINE Primary Care Provider: Dr. Mix; Cardiology-Dr. Rucker; Oncology-[facility] Chief Complaint: Fatigue History of Present Illness: A 78 Y/o WOman with PMHx of DM, HTN , chronic anemia, HLD CVA,carotid aretry stenosis and reenlt diagnosed Jaw cancer and Afib on AC pt presented for weakness and fall pt had similar episdoe about 3wks ago was hospitalzied in [facility] , pt was planned to start radiation therapy this week pt stated that she had rectal bleeding for the last few days in ER Hb 6.7, WBC 15, Cr 1.7 , pt was febrile denied chest pain, palpitation, nausea, vomiting or diarrhea Allergies iodine [Iodine] Allergy (Mild, Verified 11/19/18 18:46) Nausea/Vomiting shellfish derived Allergy (Mild, Verified 11/19/18 18:46) Nausea/Vomiting codeine Adverse Reaction (Verified 09/19/14 20:33) Nausea/Vomiting meperidine HCl [From Demerol] Adverse Reaction (Verified 09/19/14 20:33) Nausea/Vomiting NSAIDS (Non-Steroidal Anti-Inflamma Adverse Reaction (Verified 09/19/14 20:33) Nausea/Vomiting Home Medications: Amlodipine Besylate [Norvasc] 10 mg PO DAILY 11/19/18 Aspirin [Aspirin EC 81 MG] 81 mg PO BEDTIME 11/19/18 Atorvastatin Calcium [Lipitor] 40 mg PO BEDTIME 11/19/18 Carvedilol [Coreg*] 3.125 mg PO BID 11/19/18 Cranberry 25,400 mg PO DAILY 11/19/18 Diphenhydramine [Benadryl*] 25 mg PO BEDTIME 11/19/18 Gabapentin 300 mg PO BID 11/19/18 Insulin 70/30 NPH/Reg Human [Novolin 70/30*] 60 units SQ BEDTIME 11/19/18 Insulin 70/30 NPH/Reg Human [Novolin 70/30*] 80 units SQ DAILY 11/19/18 L.acidoph,Paracasei, B.lactis [Probiotic] 1 cap PO DAILY 11/19/18 Levothyroxine [Synthroid*] 100 mcg PO DAILY 11/19/18 Magnesium Oxide [Magnesium] 400 mg PO BID 11/19/18 Pantoprazole Sodium [Protonix] 40 mg PO BID 11/19/18 Rivaroxaban [Xarelto*] 20 mg PO BEDTIME 11/19/18 Senosides [Senokot*] 1 tab PO BEDTIME 11/19/18 Sertraline [Zoloft*] 25 mg PO BEDTIME 11/19/18 - Past Medical/Surgical History Diabetic: Yes -: Diabetes mellitus type 2, insulin dependent -: Hypertension -: History of CVA 2013 -: Hyperlipidemia -: Atrial fibrillation on chronic anti coagulation -: Dysphagia -: Esophageal stenosis -: GERD -: Oral cancer -: History breast cancer -: Hemorrhoids; Rectal prolapse -: left lower lobectomy, Exploratory lap appendectomy -: left masectomy -: hysterectomy Psychosocial/ Personal History: Patient is . She lives at home - Family History Father Medical History: Heart disease, Kidney disease Notes: 3 bypasses Mother Medical History: Heart disease, GI disease Notes: open heart surgery CABG. Dissected Aorta - Social History Smoking Status: Never smoker Alcohol use: No CD- Drugs: No Caffeine use: No Place of Residence: Home Physical Examination Temp Pulse Resp BP Pulse Ox 98.9 F 79 18 120/56 L 94 11/20/18 16:00 11/20/18 16:00 11/20/18 16:00 11/20/18 16:00 11/20/18 16:00 - Problems (1) JASMINE (acute kidney injury) Current Visit: Yes Status: Acute (2) Diabetes mellitus Onset Date: 09/20/14 Current Visit: No Status: Acute Conclusions/Impression: JASMINE on CKD Ischemic ATN vs prereal azotemia US no [place] baseline Cr 1.1-1.3 UA +2 prot and +2 bld will send for UPC will send for immunoelectrophoresis DM as per primary acute anemia Hb stable now transfuse to keep Hb >7.0 jaw cancer leuckocytosis and fever cont Abx f/u cultures HTN resume home meds
[2018-11-20 23:06] LABS: Hematocrit 25.9 % (36.0-45.0)
[2018-11-21] MEDS: LEVOTHYROXINE SOD 0.1 MG TAB PO SCH (05:04)
[2018-11-21 06:28] LABS: Absolute Monocytes 1.6 K/uL (0.1-1.3); Absolute Neutrophil 8.4 K/uL (1.8-8.0); Basophils % 1.2 % (0-1.3); Eosinophils % 2.8 % (0-4.4); Hematocrit 25.4 % (36.0-45.0); Lymphocytes % 8.7 % (15.3-44.8); MPV 7.2 fL (7.6-11.3); Monocytes % 14.4 % (3.3-12.3); RBC Red Blood Cell Count 3.18 M/uL (3.86-4.86)
[2018-11-21 06:29] LABS: Magnesium 2.5 mg/dL (1.8-2.4); Potassium 4.4 mmol/L (3.5-5.1)
[2018-11-21 06:45] LABS: Ferritin 23.5 ng/mL (8-388); Folic Acid, (Folate) 13.1 ng/mL (3.1-17.5)
[2018-11-21] MEDS: INSULIN -REGULAR HUMAN 50 UNIT/0.5 ML ML SQ SCH ×4 (07:30→20:54)
[2018-11-21] MEDS ORDERED: INFLUENZA VACCINE (for 3y+) 0.5 ML DOSE IMVAC ONE (08:00)
[2018-11-21] MEDS ORDERED: HOME MED 1 EA UNK (L.Acidoph,Paracasei, B.Lactis [Probiotic] 1 CAP) PO SCH (09:00)
[2018-11-21] MEDS: CRANBERRY PO SCH (09:00)
--- NOTE | 2018-11-21 09:20 | P.PN ---
Subjective Date of Service: 11/21/18 Primary Care Provider: Dr. Mix; Cardiology-Dr. Rucker; Oncology-MD Cleaya Chief Complaint: Fatigue Subjective: Other (Patient doing better today.) Physical Examination - Vital Signs Temperature: 99.2 F Blood Pressure: 134/60 Pulse: 80 Respirations: 16 Pulse Ox (%): 95 - Physical Exam General: Alert, In no apparent distress, Oriented x3, Cooperative HEENT: Atraumatic Neck: Supple Respiratory: Clear to auscultation bilaterally, Normal air movement Cardiovascular: Normal pulses, Regular rate/rhythm Gastrointestinal: Normal bowel sounds, Soft and benign, Non-distended, No masses , No rebound, No guarding Musculoskeletal: No tenderness, No warmth Integumentary: No erythema, No warmth, No cyanosis Neurological: Normal speech, Normal strength at 5/5 x4 extr, Normal tone, Normal affect - Studies Medications List Reviewed: Yes Assessment & Plan Discharge Plan: Other (prison facility) Plan to discharge in: 48 Hours Physician Review Additional Text: Impression: Fatigue likely related to acute on chronic anemia Acute on chronic renal failure History of esophageal stenosis with dilation and mild dysphagia Fever likely UTI Rectocele Diabetes mellitus type 2, insulin-dependent Hypertension Atrial fibrillation on chronic anti coagulation therapy History CVA Carotid arterial disease Oral cancer History of breast cancer Plan: Fatigue likely related to acute on chronic anemia: Patient received 2 units of blood yesterday. This has improved. Will continue monitor hemoglobin. If hemoglobin less than 7.5 will reconsider giving another transfusion of blood. Will continue with chronic anti coagulation therapy for her history of atrial fibrillation and CVA. Her packaging manager and neurologist in [place] recommend not to discontinue aspirin and Xarelto. Will continue with this medication. Case discussed with GI upon admission. No plan for intervention at this time. Patient with a recent EGD requiring esophageal dilation. Will ambulate with physical therapy today. Case discussed with health and social care teacher and family to consider skilled placement. Patient agrees. Await acceptance to skilled facility in [place] near [facility] where she gets her most of her care. Fever likely UTI: Will continue with medication. Await urine and blood culture results. Acute on chronic renal failure: Will continue with IV fluids. Renal function improved with IV fluid hydration. Continue to monitor with nephrology per History of esophageal stenosis with dilation and mild dysphagia: Patient has had major workup recently. Continue with PPI. Patient has required PEG tube in the last. No longer with PEG tube. Diabetes mellitus type 2, insulin-dependent: Will provide sliding scale. Hypertension: Will continue with home medication. Will monitor and address appropriately. Atrial fibrillation on chronic anti coagulation therapy: Patient and family report that it has been advised by her packaging manager and neurologist to continue with aspirin and Xarelto. Will discuss with cardiology. History CVA: Continue as above. Carotid arterial disease: Patient seen by CV surgery. Surgery is not recommended due to her chronic medical conditions. Patient high risk for surgery. Oral cancer: Patient is seen at [facility]. Patient high risk for surgery and possible radiation chemotherapy. Patient and family are looking in to radiation palliation. They do not plan to be aggressive on treatment. Rectocele: Will monitor this closely. Will continue with stool softener. Time Spent Managing Pts Care (In Minutes): 55
[2018-11-21] MEDS: MAGNESIUM OXIDE 400 MG TAB PO SCH ×2 (11:58→20:53)
[2018-11-21] MEDS: PANTOPRAZOLE 40MG TABLET PO SCH ×2 (11:59→20:54)
[2018-11-21] MEDS: LACTOBACILLUS/ACIDOPHILUS TAB PO SCH (11:59)
[2018-11-21] MEDS: SERTRALINE HCL 50 MG TAB PO SCH (11:59)
[2018-11-21] MEDS: CARVEDILOL 6.25 MG TAB PO SCH ×2 (12:00→20:47)
[2018-11-21] MEDS: AMLODIPINE 10 MG TAB PO SCH (12:00)
[2018-11-21] MEDS: GABAPENTIN 300 MG CAP PO SCH ×2 (12:00→20:53)
[2018-11-21] MEDS: CEFTRIAXONE/SWI 1gm 1 GM/10 ML SYR IV SCH (12:01)
[2018-11-21] MEDS: ASPIRIN EC 81 MG TAB PO SCH (12:01)
[2018-11-21] MEDS: NA CHLORIDE 0.9% 1,000 ML IV SCH (12:03)
[2018-11-21] MEDS: ACETAMINOPHEN 500 MG TAB PO PRN ×3 (12:07→21:06)
[2018-11-21 13:02] LABS: Hematocrit 26.9 % (36.0-45.0)
--- NOTE | 2018-11-21 14:07 | P.PN ---
Subjective Date of Service: 11/21/18 Primary Care Provider: Dr. Mix; Cardiology-Dr. Rucker; Oncology-MD Celaya Chief Complaint: Fatigue Subjective: Improving Cr improved to 1.3 Hb stable now no more bleeding can dc IVF by tomorrow Physical Examination - Vital Signs Temperature: 99.3 F Blood Pressure: 142/63 Pulse: 85 Respirations: 16 Pulse Ox (%): 93 - Physical Exam General: Oriented x3, Mild distress HEENT: Atraumatic Neck: Supple, Without JVD or thyroid abnormality Respiratory: Clear to auscultation bilaterally, Normal air movement Cardiovascular: No edema, Regular rate/rhythm, Normal S1 S2 - Studies Laboratory Data (last 24 hrs) 11/21/18 05:56: Sodium 140, Potassium 4.4, BUN 28 H, Creatinine 1.35 H, Glucose 151 H, Magnesium 2.5 H 11/21/18 05:56: WBC 11.5 H, Hgb 8.0 L, Hct 25.4 L, Plt Count 407 H 11/20/18 22:45: Hgb 8.2 L, Hct 25.9 L 11/20/18 17:02: Hgb 7.9 L*, Hct 25.3 L Medications List Reviewed: Yes Assessment And Plan - Current Problems (Diagnosis) (1) JASMINE (acute kidney injury) Current Visit: Yes Status: Acute (2) Diabetes mellitus Onset Date: 09/20/14 Current Visit: No Status: Acute - Plan JASMINE on CKD improving on IVF likely prereal azotemia US no [place] baseline Cr 1.1-1.3 UA +2 prot and +2 bld will send for UPC F/U immunoelectrophoresis , C3, C4 DM as per primary acute anemia due to rectocele/ hemorrhoids Hb stable now transfuse to keep Hb >7.0 jaw cancer leuckocytosis and fever cont Abx f/u cultures HTN resume home meds
[2018-11-21] MEDS ORDERED: GLYCERIN PEDI RECTAL SUPP PR PRN (14:50)
--- NOTE | 2018-11-21 15:51 | P.PN ---
Subjective Date of Service: 11/21/18 Primary Care Provider: Dr. Mix; Cardiology-Dr. Rucker; Oncology-MD Celaya Chief Complaint: Fatigue Subjective: Improving (Sitting in chair feeling constipated and states she wants a glycerin suppository to have a bowel movement.) Review of Systems 10-point ROS is otherwise unremarkable General: Weakness Gastrointestinal: Constipation Physical Examination - Vital Signs Temperature: 99.3 F Blood Pressure: 142/63 Pulse: 85 Respirations: 16 Pulse Ox (%): 93 - Physical Exam General: Alert, In no apparent distress, Oriented x3, Cooperative HEENT: Atraumatic, Normocephalic, PERRLA, EOMI Neck: Supple Respiratory: Normal air movement Cardiovascular: Normal pulses Neurological: Normal speech, Normal strength at 5/5 x4 extr - Studies Laboratory Data (last 24 hrs) 11/21/18 05:56: Sodium 140, Potassium 4.4, BUN 28 H, Creatinine 1.35 H, Glucose 151 H, Magnesium 2.5 H 11/21/18 05:56: WBC 11.5 H, Hgb 8.0 L, Hct 25.4 L, Plt Count 407 H 11/20/18 22:45: Hgb 8.2 L, Hct 25.9 L 11/20/18 17:02: Hgb 7.9 L*, Hct 25.3 L Medications List Reviewed: Yes Assessment And Plan - Current Problems (Diagnosis) (1) Anemia due to multiple mechanisms Current Visit: Yes Status: Acute Comment: Improved to 8.4. (2) Sepsis Current Visit: Yes Status: Acute (3) Bleeding hemorrhoid Current Visit: Yes Status: Acute (4) UTI (urinary tract infection) Current Visit: Yes Status: Acute (5) Pneumonia Current Visit: Yes Status: Acute (6) Constipation Current Visit: Yes Status: Acute (7) Abnormal MRI Current Visit: Yes Status: Acute (8) Oral cancer Current Visit: Yes Status: Acute (9) Diabetes mellitus Onset Date: 09/20/14 Current Visit: No Status: Acute (10) Hyperlipidemia Onset Date: 09/20/14 Current Visit: No Status: Acute (11) Hypertension Onset Date: 09/20/14 Current Visit: No Status: Acute (12) Hypothyroidism Onset Date: 09/20/14 Current Visit: No Status: Acute (13) Transient ischemic attack (TIA) Onset Date: 09/20/14 Current Visit: No Status: Acute - Plan REC: 1) will give Glycerin MD now 2) monitor labs 3) acid suppression therapy 4) transfuse prn Physician Review Additional Text: Impression: Fatigue likely related to acute on chronic anemia Acute on chronic renal failure History of esophageal stenosis with dilation and mild dysphagia Fever likely UTI Rectocele Diabetes mellitus type 2, insulin-dependent Hypertension Atrial fibrillation on chronic anti coagulation therapy History CVA Carotid arterial disease Oral cancer History of breast cancer Plan: Fatigue likely related to acute on chronic anemia: Patient received 2 units of blood yesterday. This has improved. Will continue monitor hemoglobin. If hemoglobin less than 7.5 will reconsider giving another transfusion of blood. Will continue with chronic anti coagulation therapy for her history of atrial fibrillation and CVA. Her palm gatherer and neurologist in [place] recommend not to discontinue aspirin and Xarelto. Will continue with this medication. Case discussed with GI upon admission. No plan for intervention at this time. Patient with a recent EGD requiring esophageal dilation. Will ambulate with physical therapy today. Case discussed with social work coordinator and family to consider skilled placement. Patient agrees. Await acceptance to skilled facility in [place] near [facility] where she gets her most of her care. Fever likely UTI: Will continue with medication. Await urine and blood culture results. Acute on chronic renal failure: Will continue with IV fluids. Renal function improved with IV fluid hydration. Continue to monitor with nephrology per History of esophageal stenosis with dilation and mild dysphagia: Patient has had major workup recently. Continue with PPI. Patient has required PEG tube in the last. No longer with PEG tube. Diabetes mellitus type 2, insulin-dependent: Will provide sliding scale. Hypertension: Will continue with home medication. Will monitor and address appropriately. Atrial fibrillation on chronic anti coagulation therapy: Patient and family report that it has been advised by her palm gatherer and neurologist to continue with aspirin and Xarelto. Will discuss with cardiology. History CVA: Continue as above. Carotid arterial disease: Patient seen by CV surgery. Surgery is not recommended due to her chronic medical conditions. Patient high risk for surgery. Oral cancer: Patient is seen at [facility]. Patient high risk for surgery and possible radiation chemotherapy. Patient and family are looking in to radiation palliation. They do not plan to be aggressive on treatment. Rectocele: Will monitor this closely. Will continue with stool softener.
[2018-11-21] MEDS: RIVAROXABAN 10 MG TABLET PO SCH (17:02)
[2018-11-21] MEDS: ATORVASTATIN 40 MG TAB PO SCH (20:53)
[2018-11-21] MEDS: DOCUSATE NA/SENNA CONC 1 TAB PO SCH (20:53)
[2018-11-21 23:59] LABS: Urine Protein/Creatinine Ratio 0.66 ratio (<0.15)
[2018-11-22] MEDS: NA CHLORIDE 0.9% 1,000 ML IV SCH ×2 (00:50→05:09)
[2018-11-22] MEDS: LEVOTHYROXINE SOD 0.1 MG TAB PO SCH (05:08)
[2018-11-22 06:12] LABS: Absolute Monocytes 1.4 K/uL (0.1-1.3); Absolute Neutrophil 7.6 K/uL (1.8-8.0); Basophils % 1.2 % (0-1.3); Eosinophils % 3.5 % (0-4.4); Hematocrit 25.3 % (36.0-45.0); MPV 7.1 fL (7.6-11.3); Monocytes % 13.1 % (3.3-12.3); RBC Red Blood Cell Count 3.19 M/uL (3.86-4.86)
[2018-11-22 06:25] LABS: Magnesium 2.3 mg/dL (1.8-2.4); Potassium 4.2 mmol/L (3.5-5.1)
[2018-11-22] MEDS ORDERED: Meropenem 1 GM/100 ML BAG IV SCH ×2 (07:00→09:00)
[2018-11-22] MEDS: INSULIN -REGULAR HUMAN 50 UNIT/0.5 ML ML SQ SCH ×4 (07:26→21:50)
[2018-11-22] MEDS: CRANBERRY PO SCH (08:32)
[2018-11-22] MEDS: GABAPENTIN 300 MG CAP PO SCH ×2 (08:41→20:40)
[2018-11-22] MEDS: MAGNESIUM OXIDE 400 MG TAB PO SCH ×2 (08:41→20:39)
[2018-11-22] MEDS: PANTOPRAZOLE 40MG TABLET PO SCH ×2 (08:41→20:40)
[2018-11-22] MEDS: LACTOBACILLUS/ACIDOPHILUS TAB PO SCH (08:42)
[2018-11-22] MEDS: CARVEDILOL 6.25 MG TAB PO SCH ×2 (08:42→20:40)
[2018-11-22] MEDS: ASPIRIN EC 81 MG TAB PO SCH (08:42)
[2018-11-22] MEDS: SERTRALINE HCL 50 MG TAB PO SCH (08:42)
[2018-11-22] MEDS: AMLODIPINE 10 MG TAB PO SCH (08:43)
[2018-11-22] MEDS ORDERED: Meropenem 1000 MG/VIAL IV SCH (09:00)
[2018-11-22] MEDS: Meropenem 1,000 MG in NA CHLORIDE 0.9% 100 ML IV SCH ×2 (09:43→22:59)
[2018-11-22 12:56] LABS: Hematocrit 25.9 % (36.0-45.0)
--- NOTE | 2018-11-22 12:56 | P.PN ---
Subjective Date of Service: 11/22/18 Primary Care Provider: Dr. Mix; Cardiology-Dr. Rucker; Oncology-MD Celaya Chief Complaint: Fatigue Subjective: Doing well Physical Examination - Vital Signs Temperature: 99.2 F Blood Pressure: 147/67 Pulse: 86 Respirations: 18 Pulse Ox (%): 93 - Physical Exam General: Alert, In no apparent distress, Oriented x3, Cooperative HEENT: Atraumatic Neck: Supple Respiratory: Clear to auscultation bilaterally, Normal air movement Cardiovascular: Normal pulses, Regular rate/rhythm Gastrointestinal: Normal bowel sounds, Soft and benign, Non-distended Musculoskeletal: No tenderness, No warmth Integumentary: No erythema, No warmth, No cyanosis Neurological: Normal speech, Normal strength at 5/5 x4 extr, Normal tone, Normal affect - Studies Microbiology Data (last 24 hrs): 11/20/18 00:15 Catheterized Urine [place] Count - Final >100,000 CFU/ML. 11/20/18 00:15 Catheterized Urine - Final Escherichia Coli Enterococcus Faecalis Medications List Reviewed: Yes Assessment & Plan Discharge Plan: Other (long-term facility) Plan to discharge in: 24 Hours Physician Review Additional Text: Impression: Fatigue likely related to acute on chronic anemia Acute on chronic renal failure History of esophageal stenosis with dilation and mild dysphagia Fever likely UTI Rectocele Diabetes mellitus type 2, insulin-dependent Hypertension Atrial fibrillation on chronic anti coagulation therapy History CVA Carotid arterial disease Oral cancer History of breast cancer Plan: Fatigue likely related to acute on chronic anemia: Patient has received a total of 2 units of blood. Hemoglobin stable. Will continue to monitor hemoglobin. If hemoglobin less than 7.5 will reconsider giving another transfusion of blood. Will continue with chronic anti coagulation therapy for her history of atrial fibrillation and CVA. Her district manager primary care sales and neurologist in [place] recommend not to discontinue aspirin and Xarelto. Case discussed with GI upon admission. No plan for intervention at this time. Patient with a recent EGD requiring esophageal dilation. Will ambulate with physical therapy today. Case discussed with social research assistant and family to consider skilled placement. Patient agrees. Await acceptance to skilled facility in [place] near [facility] where she gets her most of her care. I will turn the service over to Dr. Zepeda tomorrow. I will go over the plan of care Fever likely UTI, urine culture positive for E coli-ESBL and Enterococcus: Will change to meropenem. Patient will need PICC line. Patient will require 7 days of IV antibiotic therapy. Acute on chronic renal failure: Dc IV fluids. Continue to monitor with nephrology History of esophageal stenosis with dilation and mild dysphagia: Patient has had major workup recently. Continue with PPI. Patient has required PEG tube in the last. No longer with PEG tube. Diabetes mellitus type 2, insulin-dependent: Will provide sliding scale. Hypertension: Will continue with home medication. Will monitor and address appropriately. Atrial fibrillation on chronic anti coagulation therapy: Patient and family report that it has been advised by her district manager primary care sales and neurologist to continue with aspirin and Xarelto. Will discuss with cardiology. History CVA: Continue as above. Carotid arterial disease: Patient seen by CV surgery. Surgery is not recommended due to her chronic medical conditions. Patient high risk for surgery. Oral cancer: Patient is seen at [facility]. Patient high risk for surgery and possible radiation chemotherapy. Patient and family are looking in to radiation palliation. They do not plan to be aggressive on treatment. Rectocele: Will monitor this closely. Will continue with stool softener. Time Spent Managing Pts Care (In Minutes): 55
[2018-11-22] MEDS: RIVAROXABAN 10 MG TABLET PO SCH (16:44)
[2018-11-22] MEDS ORDERED: INFLUENZA VACCINE (for 3y+) 0.5 ML DOSE IMVAC ONE (17:00)
--- NOTE | 2018-11-22 18:14 | P.PN ---
Subjective Date of Service: 11/22/18 Primary Care Provider: Dr. Mix; Cardiology-Dr. Rucker; Oncology-MD Celaya Chief Complaint: Fatigue Subjective: Improving Cr normalized Hb stable now no more bleeding Dc IVF Ucx: E.coli ESBL, cont merrem cleared for discharge from nephrology point of view Physical Examination - Vital Signs Temperature: 99.2 F Blood Pressure: 126/59 Pulse: 63 Respirations: 18 Pulse Ox (%): 95 - Physical Exam General: In no apparent distress, Oriented x3 HEENT: Atraumatic Neck: Supple, Without JVD or thyroid abnormality Respiratory: Clear to auscultation bilaterally, Normal air movement Cardiovascular: No edema Gastrointestinal: Normal bowel sounds, Soft and benign - Studies Microbiology Data (last 24 hrs): 11/20/18 00:15 Catheterized Urine [place] Count - Final >100,000 CFU/ML. 11/20/18 00:15 Catheterized Urine - Final Escherichia Coli Enterococcus Faecalis Medications List Reviewed: Yes Assessment And Plan - Current Problems (Diagnosis) (1) JASMINE (acute kidney injury) Current Visit: Yes Status: Acute (2) Diabetes mellitus Onset Date: 09/20/14 Current Visit: No Status: Acute - Plan JASMINE on CKD resolved due to prereal azotemia US no [place] baseline Cr 1.1-1.3 UA +2 prot and +2 bld will send for UPC F/U immunoelectrophoresis , C3, C4 DM as per primary acute anemia due to rectocele/ hemorrhoids Hb stable now transfuse to keep Hb >7.0 jaw cancer UTI E.coli ESBL HTN Controlled
--- NOTE | 2018-11-22 19:36 | P.PN ---
Subjective Date of Service: 11/22/18 Primary Care Provider: Dr. Mix; Cardiology-Dr. Rucker; Oncology-MD Celaya Chief Complaint: Fatigue Subjective: Improving (No complaints now. Sitting in bed with daughter and son in room. Looks stable / improved. Possible discharge tomorrow.) Review of Systems General: Weakness (improved) Physical Examination - Vital Signs Temperature: 99.2 F Blood Pressure: 126/59 Pulse: 63 Respirations: 18 Pulse Ox (%): 95 - Physical Exam General: Alert, In no apparent distress, Oriented x2, Cooperative HEENT: Atraumatic, Normocephalic, PERRLA, EOMI Neck: Supple Respiratory: Normal air movement Cardiovascular: Normal pulses Gastrointestinal: Soft and benign, No tenderness, No rebound, No guarding (obese ) Neurological: Normal speech - Studies Microbiology Data (last 24 hrs): 11/20/18 00:15 Catheterized Urine [place] Count - Final >100,000 CFU/ML. 11/20/18 00:15 Catheterized Urine - Final Escherichia Coli Enterococcus Faecalis Medications List Reviewed: Yes Assessment And Plan - Current Problems (Diagnosis) (1) Anemia due to multiple mechanisms Current Visit: Yes Status: Acute Comment: Stable at 8.1. (2) Sepsis Current Visit: Yes Status: Acute (3) Bleeding hemorrhoid Current Visit: Yes Status: Acute (4) UTI (urinary tract infection) Current Visit: Yes Status: Acute (5) Pneumonia Current Visit: Yes Status: Acute (6) Constipation Current Visit: Yes Status: Acute (7) Abnormal MRI Current Visit: Yes Status: Acute (8) Oral cancer Current Visit: Yes Status: Acute (9) Diabetes mellitus Onset Date: 09/20/14 Current Visit: No Status: Acute (10) Hyperlipidemia Onset Date: 09/20/14 Current Visit: No Status: Acute (11) Hypertension Onset Date: 09/20/14 Current Visit: No Status: Acute (12) Hypothyroidism Onset Date: 09/20/14 Current Visit: No Status: Acute (13) Transient ischemic attack (TIA) Onset Date: 09/20/14 Current Visit: No Status: Acute - Plan REC: 1) monitor labs 2) continue acid suppression therapy 3) transfuse prn Physician Review Additional Text: Impression: Fatigue likely related to acute on chronic anemia Acute on chronic renal failure History of esophageal stenosis with dilation and mild dysphagia Fever likely UTI Rectocele Diabetes mellitus type 2, insulin-dependent Hypertension Atrial fibrillation on chronic anti coagulation therapy History CVA Carotid arterial disease Oral cancer History of breast cancer Plan: Fatigue likely related to acute on chronic anemia: Patient has received a total of 2 units of blood. Hemoglobin stable. Will continue to monitor hemoglobin. If hemoglobin less than 7.5 will reconsider giving another transfusion of blood. Will continue with chronic anti coagulation therapy for her history of atrial fibrillation and CVA. Her fibrous wallboard inspector and neurologist in [place] recommend not to discontinue aspirin and Xarelto. Case discussed with GI upon admission. No plan for intervention at this time. Patient with a recent EGD requiring esophageal dilation. Will ambulate with physical therapy today. Case discussed with social service coordinator and family to consider skilled placement. Patient agrees. Await acceptance to skilled facility in [place] near [facility] where she gets her most of her care. I will turn the service over to Dr. Zepeda tomorrow. I will go over the plan of care Fever likely UTI, urine culture positive for E coli-ESBL and Enterococcus: Will change to meropenem. Patient will need PICC line. Patient will require 7 days of IV antibiotic therapy. Acute on chronic renal failure: Dc IV fluids. Continue to monitor with nephrology History of esophageal stenosis with dilation and mild dysphagia: Patient has had major workup recently. Continue with PPI. Patient has required PEG tube in the last. No longer with PEG tube. Diabetes mellitus type 2, insulin-dependent: Will provide sliding scale. Hypertension: Will continue with home medication. Will monitor and address appropriately. Atrial fibrillation on chronic anti coagulation therapy: Patient and family report that it has been advised by her fibrous wallboard inspector and neurologist to continue with aspirin and Xarelto. Will discuss with cardiology. History CVA: Continue as above. Carotid arterial disease: Patient seen by CV surgery. Surgery is not recommended due to her chronic medical conditions. Patient high risk for surgery. Oral cancer: Patient is seen at [facility]. Patient high risk for surgery and possible radiation chemotherapy. Patient and family are looking in to radiation palliation. They do not plan to be aggressive on treatment. Rectocele: Will monitor this closely. Will continue with stool softener.
[2018-11-22] MEDS: ATORVASTATIN 40 MG TAB PO SCH (20:39)
[2018-11-22] MEDS: DOCUSATE NA/SENNA CONC 1 TAB PO SCH (20:40)
[2018-11-23] MEDS: LEVOTHYROXINE SOD 0.1 MG TAB PO SCH (05:45)
[2018-11-23] MEDS: INSULIN -REGULAR HUMAN 50 UNIT/0.5 ML ML SQ SCH ×4 (07:30→21:02)
--- NOTE | 2018-11-23 08:41 | RAD REPORT ---
EXAM DESCRIPTION: RAD - Chest Single View - 11/23/2018 2:10 am CLINICAL HISTORY: PICC placement COMPARISON: Chest Pa And Lat (2 Views) dated 07/04/2016; CHEST PA AND LAT 2 VIEW dated 02/08/2015; CHES T SINGLE VIEW dated 09/18/2014; CHEST SINGLE VIEW dated 09/14/2012 FINDINGS: Portable chest was obtained following placement of a right upper extremity PICC line. The catheter tip projects over the SVC..
[2018-11-23] MEDS: CRANBERRY PO SCH (09:00)
[2018-11-23] MEDS: Meropenem 1,000 MG in NA CHLORIDE 0.9% 100 ML IV SCH ×2 (10:05→21:00)
[2018-11-23] MEDS: SERTRALINE HCL 50 MG TAB PO SCH (10:06)
[2018-11-23] MEDS: GABAPENTIN 300 MG CAP PO SCH ×2 (10:06→21:01)
[2018-11-23] MEDS: CARVEDILOL 6.25 MG TAB PO SCH ×2 (10:06→21:01)
[2018-11-23] MEDS: AMLODIPINE 10 MG TAB PO SCH (10:07)
[2018-11-23] MEDS: PANTOPRAZOLE 40MG TABLET PO SCH ×2 (10:08→21:01)
[2018-11-23] MEDS: ASPIRIN EC 81 MG TAB PO SCH (10:08)
[2018-11-23] MEDS: LACTOBACILLUS/ACIDOPHILUS TAB PO SCH (10:08)
[2018-11-23] MEDS: MAGNESIUM OXIDE 400 MG TAB PO SCH ×2 (10:08→21:01)
--- NOTE | 2018-11-23 15:56 | CON ---
Date of Consultation: 11/20/2018 The patient admitted on 11/19/2018. I saw the patient on 11/20/2018. Reason For Consultation: Atrial fibrillation and anemia. History Of Present Illness: Mrs. Betts is a 78-year-old woman who has had an extensive past medica l history. She has a history of diabetes, hypertension, dyslipidemia, and a history of stroke in the past. Has had atrial fibrillation that is chronic. Has had a history of cerebrovascular disease, s tatus post carotid surgery. Has had a history of oral cancer, lung cancer, breast cancer. She stormy sow sees Dr. Carpio as a primary care. She also sees Dr. Uribe for her cancer issue for radiation ther apy at [facility]. She came in with anemia. Hemoglobin was 6.7. She was weak. Denied any chest p ain or syncope. Her creatinine was 1.78. Her white count was 11.8. Otherwise, troponin, BNPs were negative. Allergies: INCLUDE NONSTEROIDALS, ANTI-INFLAMMATORY AGENTS, CODEINE, AND IODINE. Review of Systems: Negative. Social History: Negative. Family History: Noncontributory. Medications: At home include aspirin, Norvasc, Lipitor, Coreg, insulin, Neurontin, Synthroid, magnes ium, Protonix, Xarelto, and Zoloft. Physical Examination: General: She was in no acute distress. Vital Signs: Stable. She was in atrial fibrillation at a rate of about 80. HEENT: Negative. Neck: Supple without any bruit, lymphadenopathy, JVD, or thyromegaly. Chest: Clear to auscultation and percussion. Cardiac: Exam revealed atrial fibrillation. Abdomen: Benign. Extremities: Revealed no clubbing, cyanosis, or edema. Neurological: She was intact. Pulses were present distally bilaterally. Skin: Dry and intact. Impression And Plan: 1.Severe anemia secondary to lower gastrointestinal bleed, possibly related to hemorrhoids, on aspir in and Xarelto. I feel that she can certainly continue the Xarelto, but I would personally prefer sh e stops aspirin. She has already received 2 units of blood transfusion. Her hemoglobin is above 8. 2.Continuing radiation therapy with Dr. Uribe at [facility]. 3.Renal insufficiency. 4.Diabetes. 5.Hypertension. 6.Dyslipidemia. 7.Status post cerebrovascular accident with cerebrovascular disease, status post endarterectomy. 8.DNR status. 9.Gastroesophageal reflux disease. 10.Hypothyroidism. 11.Depression. 12.Neuropathy. As stated earlier, I would recommend stopping the aspirin, continuing the Xarelto, and outpatient fol lowup with her primary care physician and with [facility]. No need for any cardiac workup at this p oint. KILEY/MODESTO Voice ID: [id number] Report ID: [id number]
--- NOTE | 2018-11-23 16:15 | P.PN ---
Subjective Date of Service: 11/23/18 Primary Care Provider: Dr. Mix; Cardiology-Dr. Rucker; Oncology-[facility] Chief Complaint: Fatigue Patient seen and examined at bedside with RN. Chart reviewed. Doing well overall. No complaints to offer overnight. Case discussed with GI and nephrology at this time. Review of Systems 10-point ROS is otherwise unremarkable Physical Examination - Vital Signs Temperature: 98.9 F Blood Pressure: 129/45 Pulse: 56 Respirations: 16 Pulse Ox (%): 98 - Physical Exam General: Alert, In no apparent distress HEENT: Atraumatic, PERRLA, EOMI Neck: Supple, JVD not distended Respiratory: Clear to auscultation bilaterally, Normal air movement Cardiovascular: Regular rate/rhythm, Normal S1 S2 Gastrointestinal: Normal bowel sounds, No tenderness Musculoskeletal: No tenderness Integumentary: No rashes Neurological: Normal speech, Normal tone, Normal affect Lymphatics: No axilla or inguinal lymphadenopathy - Studies Microbiology Data (last 24 hrs): 11/20/18 00:15 Catheterized Urine [place] Count - Final >100,000 CFU/ML. 11/20/18 00:15 Catheterized Urine - Final Escherichia Coli Enterococcus Faecalis Medications List Reviewed: Yes Assessment And Plan - Plan Plan: Symptomatic anemia: -Patient status post 2 units of blood. -Hemoglobin stable at this time. -Will continue with chronic anti coagulation aspirin and Xarelto as per cardiology and neurology recommendation. -Case discussed with GI no intervention required at this time. -Patient with a recent EGD requiring esophageal dilation. UTI -urine culture positive for E coli-ESBL and Enterococcus -IV meropenem at this time -PICC line placed. -usp facility placement for IV antibiotics for total of 7 days Acute on chronic renal failure: -nephrology consulted. Appreciated recommendations at this time History of esophageal stenosis with dilation and mild dysphagia: -Patient has had major workup recently. -Continue with PPI. -Patient has required PEG tube in the last. No longer with PEG tube. Diabetes mellitus type 2, insulin-dependent: -sliding scale. Hypertension: -Will continue with home medication. Atrial fibrillation on chronic anti coagulation therapy: -Patient and family report that it has been advised by her senior windows engineer and neurologist to continue with aspirin and Xarelto. History CVA: Carotid arterial disease: -Patient seen by CV surgery. Surgery is not recommended due to her chronic medical conditions. Patient high risk for surgery. Oral cancer: -Patient is seen at [facility]. -Patient high risk for surgery and possible radiation chemotherapy. -Patient and family are looking in to radiation palliation. -They do not plan to be aggressive on treatment. Rectocele: -Will monitor this closely. Will continue with stool softener. Disposition: Awaiting NH placement for IV abx and rehab Discharge Plan: Home Plan to discharge in: 48 Hours - Code Status/Comfort Care Code Status Assessed: Yes Critical Care: No
[2018-11-23] MEDS: RIVAROXABAN 10 MG TABLET PO SCH (18:20)
[2018-11-23] MEDS: DOCUSATE NA/SENNA CONC 1 TAB PO SCH (21:01)
[2018-11-23] MEDS: ATORVASTATIN 40 MG TAB PO SCH (21:01)
--- NOTE | 2018-11-24 03:58 | PN ---
Date of Progress Note: 11/23/2018 Chief Complaint: Ngrib-hv-qkbsdyj kidney injury. History Of Present Illness: On admission, creatinine level was up to 1.7. Subsequently, it has impr javad and stabilized to 0.98. The patient was found to have nonoliguric acute kidney injury associated with renal hypoperfusion. T he patient responded to IV fluids. Review of Systems: Denies fever or chills. Physical Examination: Lungs: Clear to auscultation bilaterally. Heart: S1 and S2. Abdomen: Soft and benign. Extremities: No edema. Laboratory Data: Sodium 140, potassium 4.4, BUN 28, creatinine 1.35, glucose 151, and magnesium 2.5. Recent lab work showed sodium 148, potassium 4.2, chloride 106, CO2 of 24, BUN 21, creatinine 0.98, and calcium 7.9. Impression And Plan: 1.Gungs-od-zmtxizi kidney injury. Renal function is improving in response to IV fluids. 2.Diabetes mellitus. Monitor blood glucose. Adjust insulin. 3.Urinary tract infection with Escherichia coli. Continue treatment with meropenem. 4.Urinalysis showed 2+ protein. Follow up with immunoelectrophoresis, pending C3 and C4. 5.Acute anemia. Transfuse packed red blood cells according to lab work results. 6.Hypertension, controlled. Continue current medication. ALMA/MODESTO Voice ID: [id number] Report ID: [id number]
[2018-11-24] MEDS: LEVOTHYROXINE SOD 0.1 MG TAB PO SCH (05:15)
[2018-11-24] MEDS: INSULIN -REGULAR HUMAN 50 UNIT/0.5 ML ML SQ SCH ×4 (08:41→20:48)
[2018-11-24] MEDS: Meropenem 1,000 MG in NA CHLORIDE 0.9% 100 ML IV SCH ×2 (08:42→20:50)
[2018-11-24] MEDS: GABAPENTIN 300 MG CAP PO SCH ×2 (08:45→20:49)
[2018-11-24] MEDS: CRANBERRY PO SCH (08:45)
[2018-11-24] MEDS: CARVEDILOL 6.25 MG TAB PO SCH ×2 (08:46→20:51)
[2018-11-24] MEDS: AMLODIPINE 10 MG TAB PO SCH (08:50)
[2018-11-24] MEDS: LACTOBACILLUS/ACIDOPHILUS TAB PO SCH (08:50)
[2018-11-24] MEDS: MAGNESIUM OXIDE 400 MG TAB PO SCH ×2 (08:50→20:49)
[2018-11-24] MEDS: SERTRALINE HCL 50 MG TAB PO SCH (08:51)
[2018-11-24] MEDS: PANTOPRAZOLE 40MG TABLET PO SCH ×2 (08:51→20:50)
[2018-11-24] MEDS: ASPIRIN EC 81 MG TAB PO SCH (08:51)
--- NOTE | 2018-11-24 14:47 | P.PN ---
Subjective Date of Service: 11/24/18 Primary Care Provider: Dr. Mix; Cardiology-Dr. Rucker; Oncology-MD Celaya Chief Complaint: Fatigue Patient seen and examined at bedside with RN. Chart reviewed. Doing well overall. No complaints to offer overnight. Case discussed with GI and nephrology at this time. Review of Systems 10-point ROS is otherwise unremarkable Physical Examination - Vital Signs Temperature: 99.2 F Blood Pressure: 153/66 Pulse: 61 Respirations: 16 Pulse Ox (%): 93 - Physical Exam General: Alert, In no apparent distress HEENT: Atraumatic, PERRLA, EOMI Neck: Supple, JVD not distended Respiratory: Clear to auscultation bilaterally, Normal air movement Cardiovascular: Regular rate/rhythm, Normal S1 S2 Gastrointestinal: Normal bowel sounds, No tenderness Musculoskeletal: No tenderness Integumentary: No rashes Neurological: Normal speech, Normal tone, Normal affect Lymphatics: No axilla or inguinal lymphadenopathy - Studies Medications List Reviewed: Yes Assessment And Plan - Plan Plan: Symptomatic anemia: -Patient status post 2 units of blood. -Hemoglobin stable at this time. -Will continue with chronic anti coagulation aspirin and Xarelto as per cardiology and neurology recommendation. -Case discussed with GI no intervention required at this time. -Patient with a recent EGD requiring esophageal dilation. UTI -urine culture positive for E coli-ESBL and Enterococcus -IV meropenem 12/03 -PICC line placed. Acute on chronic renal failure: -nephrology consulted. Appreciated recommendations at this time History of esophageal stenosis with dilation and mild dysphagia: -Patient has had major workup recently. -Continue with PPI. -Patient has required PEG tube in the last. No longer with PEG tube. Diabetes mellitus type 2, insulin-dependent: -sliding scale. Hypertension: -Will continue with home medication. Atrial fibrillation on chronic anti coagulation therapy: -Patient and family report that it has been advised by her dip tube assembler machine and neurologist to continue with aspirin and Xarelto. History CVA: -Stable Carotid arterial disease: -Patient seen by CV surgery. Surgery is not recommended due to her chronic medical conditions. Patient high risk for surgery. Oral cancer: -Patient is seen at [facility]. -Patient high risk for surgery and possible radiation chemotherapy. -Patient and family are looking in to radiation palliation. -They do not plan to be aggressive on treatment. Rectocele: -Will monitor this closely. Will continue with stool softener. Disposition: Awaiting NH placement for IV abx and rehab Discharge Plan: Home Plan to discharge in: 48 Hours - Code Status/Comfort Care Code Status Assessed: Yes Critical Care: No
[2018-11-24] MEDS: ACETAMINOPHEN 500 MG TAB PO PRN (16:31)
[2018-11-24] MEDS: RIVAROXABAN 10 MG TABLET PO SCH (16:33)
--- NOTE | 2018-11-24 17:07 | P.PN ---
Subjective Date of Service: 11/24/18 Primary Care Provider: Dr. Mix; Cardiology-Dr. Rucker; Oncology-MD Celaya Chief Complaint: Fatigue Subjective: Improving Physical Examination - Vital Signs Temperature: 98.8 F Blood Pressure: 144/67 Pulse: 56 Respirations: 16 Pulse Ox (%): 98 - Studies Medications List Reviewed: Yes Assessment And Plan - Current Problems (Diagnosis) (1) Anemia due to multiple mechanisms Onset Date: 11/23/18 Current Visit: Yes Status: Acute Comment: Stable at 8.1. (2) Sepsis Onset Date: 11/23/18 Current Visit: Yes Status: Acute (3) Bleeding hemorrhoid Onset Date: 11/23/18 Current Visit: Yes Status: Acute (4) UTI (urinary tract infection) Onset Date: 11/23/18 Current Visit: Yes Status: Acute (5) Pneumonia Onset Date: 11/23/18 Current Visit: Yes Status: Acute (6) Constipation Onset Date: 11/23/18 Current Visit: Yes Status: Acute (7) Abnormal MRI Onset Date: 11/23/18 Current Visit: Yes Status: Acute (8) Oral cancer Onset Date: 11/23/18 Current Visit: Yes Status: Acute (9) Diabetes mellitus Onset Date: 09/20/14 Current Visit: No Status: Acute (10) Hyperlipidemia Onset Date: 09/20/14 Current Visit: No Status: Acute (11) Hypertension Onset Date: 09/20/14 Current Visit: No Status: Acute (12) Hypothyroidism Onset Date: 09/20/14 Current Visit: No Status: Acute (13) Transient ischemic attack (TIA) Onset Date: 09/20/14 Current Visit: No Status: Acute - Plan REC: 1) monitor labs 2) continue acid suppression therapy 3) transfuse prn Physician Review Additional Text: Impression: Fatigue likely related to acute on chronic anemia Acute on chronic renal failure History of esophageal stenosis with dilation and mild dysphagia Fever likely UTI Rectocele Diabetes mellitus type 2, insulin-dependent Hypertension Atrial fibrillation on chronic anti coagulation therapy History CVA Carotid arterial disease Oral cancer History of breast cancer Plan: Fatigue likely related to acute on chronic anemia: Patient has received a total of 2 units of blood. Hemoglobin stable. Will continue to monitor hemoglobin. If hemoglobin less than 7.5 will reconsider giving another transfusion of blood. Will continue with chronic anti coagulation therapy for her history of atrial fibrillation and CVA. Her meter changes records clerk and neurologist in [place] recommend not to discontinue aspirin and Xarelto. Case discussed with GI upon admission. No plan for intervention at this time. Patient with a recent EGD requiring esophageal dilation. Will ambulate with physical therapy today. Case discussed with social worker clinical and family to consider skilled placement. Patient agrees. Await acceptance to skilled facility in [place] near [facility] where she gets her most of her care. I will turn the service over to Dr. Zepeda tomorrow. I will go over the plan of care Fever likely UTI, urine culture positive for E coli-ESBL and Enterococcus: Will change to meropenem. Patient will need PICC line. Patient will require 7 days of IV antibiotic therapy. Acute on chronic renal failure: Dc IV fluids. Continue to monitor with nephrology History of esophageal stenosis with dilation and mild dysphagia: Patient has had major workup recently. Continue with PPI. Patient has required PEG tube in the last. No longer with PEG tube. Diabetes mellitus type 2, insulin-dependent: Will provide sliding scale. Hypertension: Will continue with home medication. Will monitor and address appropriately. Atrial fibrillation on chronic anti coagulation therapy: Patient and family report that it has been advised by her meter changes records clerk and neurologist to continue with aspirin and Xarelto. Will discuss with cardiology. History CVA: Continue as above. Carotid arterial disease: Patient seen by CV surgery. Surgery is not recommended due to her chronic medical conditions. Patient high risk for surgery. Oral cancer: Patient is seen at [facility]. Patient high risk for surgery and possible radiation chemotherapy. Patient and family are looking in to radiation palliation. They do not plan to be aggressive on treatment. Rectocele: Will monitor this closely. Will continue with stool softener.
[2018-11-24] MEDS: DOCUSATE NA/SENNA CONC 1 TAB PO SCH (20:50)
[2018-11-24] MEDS: ATORVASTATIN 40 MG TAB PO SCH (20:50)
--- NOTE | 2018-11-25 02:29 | PN ---
Date of Progress Note: 11/24/2018 Subjective: The patient is doing well. The patient was admitted with acute kidney injury, prerenal, secondary to dehydration. The patient is feeling much better, asymptomatic. Physical Examination: Vital Signs: Blood pressure 134/61, pulse of 69. Chest: Clear to auscultation. Heart: S1, S2. Systolic murmur. Abdomen: Soft, nontender. Extremities: Trace edema. Laboratory Data: H and H 8.1/25.9. Sodium 138, potassium 4.2, bicarb 24, BUN 21, and creatinine 0.9 . Assessment And Plan: 1.Acute kidney injury secondary to prerenal, recovered, resolved. 2.Hypokalemia, resolved. 3.Anemia secondary to chronic disease. We will follow up with the primary. The patient is cleared from the renal standpoint for discharge planning. CARO Voice ID: [id number] Report ID: [id number]
[2018-11-25] MEDS: LEVOTHYROXINE SOD 0.1 MG TAB PO SCH (06:45)
[2018-11-25] MEDS: INSULIN -REGULAR HUMAN 50 UNIT/0.5 ML ML SQ SCH ×4 (07:30→21:00)
[2018-11-25] MEDS: CRANBERRY PO SCH (09:00)
[2018-11-25] MEDS: Meropenem 1,000 MG in NA CHLORIDE 0.9% 100 ML IV SCH ×2 (10:15→21:49)
[2018-11-25] MEDS: MAGNESIUM OXIDE 400 MG TAB PO SCH ×2 (10:16→21:49)
[2018-11-25] MEDS: LACTOBACILLUS/ACIDOPHILUS TAB PO SCH (10:16)
[2018-11-25] MEDS: GABAPENTIN 300 MG CAP PO SCH ×2 (10:16→21:48)
[2018-11-25] MEDS: AMLODIPINE 10 MG TAB PO SCH (10:16)
[2018-11-25] MEDS: SERTRALINE HCL 50 MG TAB PO SCH (10:16)
[2018-11-25] MEDS: ASPIRIN EC 81 MG TAB PO SCH (10:17)
[2018-11-25] MEDS: CARVEDILOL 6.25 MG TAB PO SCH ×2 (10:17→21:48)
[2018-11-25] MEDS: PANTOPRAZOLE 40MG TABLET PO SCH ×2 (10:17→21:49)
[2018-11-25] MEDS ORDERED: SOD FERRIC GLUC COMPLX/SUCROSE 250 MG in NA CHLORIDE 0.9% 250 ML IV SCH (12:00)
--- NOTE | 2018-11-25 16:47 | PN ---
Date of Progress Note: 11/25/2018 Subjective: The patient is feeling much better. Physical Examination: Vital Signs: When I saw the patient, blood pressure 154/67, pulse of 77. Chest: Clear to auscultation. HEART: S1, S2, regular. Abdomen: Soft, nontender. Extremities: Trace edema. Laboratory Data: WBC 10.5, H and H 8.1/25.9, platelets 446. Sodium 139, potassium 4.2, bicarb 24, B UN 21, creatinine 0.9, calcium 7.9, magnesium 2.3. TSH of 2.1. Current Medications: The patient on include, 1.Aspirin. 2.Meropenem. 3.Xarelto. 4.Norvasc 10. 5.Carvedilol 6.25 b.i.d. 6.Atorvastatin. 7.Gabapentin. 8.Pantoprazole. 9.Levothyroxine. Assessment And Plan: 1.Acute kidney injury secondary to prerenal, recovered, resolved. 2.Hypomagnesemia. Continue supplement. 3.Urinary tract infection, extended spectrum beta-lactamases, enterococcus. Continue meropenem. I agree with the dose. 4.Diabetes as by primary. 5.Anemia status post transfusion. I am going to go ahead and send for given the iron deficiency anemia. I will start the patient on IV iron and we will follow up. CARO Voice ID: [id number] Report ID: [id number]
--- NOTE | 2018-11-25 16:53 | P.PN ---
Subjective Date of Service: 11/25/18 Primary Care Provider: Dr. Mix; Cardiology-Dr. Rucker; Oncology-MD Celaya Chief Complaint: Fatigue Patient seen and examined at bedside with RN. Chart reviewed. Doing well overall. No complaints to offer overnight. Case discussed with GI and nephrology at this time. Review of Systems 10-point ROS is otherwise unremarkable Physical Examination - Vital Signs Temperature: 99.1 F Blood Pressure: 155/55 Pulse: 65 Respirations: 18 Pulse Ox (%): 95 - Physical Exam General: Alert, In no apparent distress HEENT: Atraumatic, PERRLA, EOMI Neck: Supple, JVD not distended Respiratory: Clear to auscultation bilaterally, Normal air movement Cardiovascular: Regular rate/rhythm, Normal S1 S2 Gastrointestinal: Normal bowel sounds, No tenderness Musculoskeletal: No tenderness Integumentary: No rashes Neurological: Normal speech, Normal tone, Normal affect Lymphatics: No axilla or inguinal lymphadenopathy - Studies Microbiology Data (last 24 hrs): 11/20/18 11:16 Blood - Blood Aerobic Blood Culture - Final No growth in 5 days. 11/20/18 11:16 Blood - Blood Anaerobic Blood Culture - Final No growth in 5 days. 11/20/18 10:40 Blood - Blood Aerobic Blood Culture - Final No growth in 5 days. 11/20/18 10:40 Blood - Blood Anaerobic Blood Culture - Final No growth in 5 days. Medications List Reviewed: Yes Assessment And Plan - Plan Plan: Symptomatic anemia: -Patient status post 2 units of blood. -Hemoglobin stable at this time. -Will continue with chronic anti coagulation aspirin and Xarelto as per cardiology and neurology recommendation. -Case discussed with GI no intervention required at this time. -Patient with a recent EGD requiring esophageal dilation. UTI -urine culture positive for E coli-ESBL and Enterococcus -IV meropenem 12/31 -PICC line placed. Acute on chronic renal failure: -nephrology consulted. Appreciated recommendations at this time History of esophageal stenosis with dilation and mild dysphagia: -Patient has had major workup recently. -Continue with PPI. -Patient has required PEG tube in the last. No longer with PEG tube. Diabetes mellitus type 2, insulin-dependent: -sliding scale. Hypertension: -Will continue with home medication. Atrial fibrillation on chronic anti coagulation therapy: -Patient and family report that it has been advised by her django developer and neurologist to continue with aspirin and Xarelto. History CVA: -Stable Carotid arterial disease: -Patient seen by CV surgery. Surgery is not recommended due to her chronic medical conditions. Patient high risk for surgery. Oral cancer: -Patient is seen at [facility]. -Patient high risk for surgery and possible radiation chemotherapy. -Patient and family are looking in to radiation palliation. -They do not plan to be aggressive on treatment. Rectocele: -Will monitor this closely. Will continue with stool softener. Disposition: Awaiting NH placement for IV abx and rehab Discharge Plan: Jail Plan to discharge in: 48 Hours - Code Status/Comfort Care Code Status Assessed: Yes Critical Care: No
[2018-11-25] MEDS: RIVAROXABAN 10 MG TABLET PO SCH (17:01)
--- NOTE | 2018-11-25 18:03 | P.PN ---
Subjective Date of Service: 11/24/18 Primary Care Provider: Dr. Mix; Cardiology-Dr. Rucker; Oncology-MD Celaya Chief Complaint: Fatigue Subjective: Improving (Awaiting placement at outside facility.) Review of Systems 10-point ROS is otherwise unremarkable General: Weakness (Improved.) Physical Examination - Vital Signs Temperature: 99.1 F Blood Pressure: 155/55 Pulse: 65 Respirations: 18 Pulse Ox (%): 95 - Physical Exam General: Alert, In no apparent distress, Oriented x2, Cooperative HEENT: Atraumatic, Normocephalic, PERRLA, EOMI Neck: Supple Respiratory: Normal air movement Cardiovascular: Normal pulses Gastrointestinal: Soft and benign, No tenderness, No rebound, No guarding Neurological: Normal speech, Normal strength at 5/5 x4 extr - Studies Microbiology Data (last 24 hrs): 11/20/18 11:16 Blood - Blood Aerobic Blood Culture - Final No growth in 5 days. 11/20/18 11:16 Blood - Blood Anaerobic Blood Culture - Final No growth in 5 days. 11/20/18 10:40 Blood - Blood Aerobic Blood Culture - Final No growth in 5 days. 11/20/18 10:40 Blood - Blood Anaerobic Blood Culture - Final No growth in 5 days. Medications List Reviewed: Yes Assessment And Plan - Current Problems (Diagnosis) (1) Anemia due to multiple mechanisms Onset Date: 11/23/18 Current Visit: Yes Status: Acute Comment: Stable at 8.1. (2) Sepsis Onset Date: 11/23/18 Current Visit: Yes Status: Acute (3) Bleeding hemorrhoid Onset Date: 11/23/18 Current Visit: Yes Status: Acute (4) UTI (urinary tract infection) Onset Date: 11/23/18 Current Visit: Yes Status: Acute (5) Pneumonia Onset Date: 11/23/18 Current Visit: Yes Status: Acute (6) Constipation Onset Date: 11/23/18 Current Visit: Yes Status: Acute (7) Abnormal MRI Onset Date: 11/23/18 Current Visit: Yes Status: Acute (8) Oral cancer Onset Date: 11/23/18 Current Visit: Yes Status: Acute (9) Diabetes mellitus Onset Date: 09/20/14 Current Visit: No Status: Acute (10) Hyperlipidemia Onset Date: 09/20/14 Current Visit: No Status: Acute (11) Hypertension Onset Date: 09/20/14 Current Visit: No Status: Acute (12) Hypothyroidism Onset Date: 09/20/14 Current Visit: No Status: Acute (13) Transient ischemic attack (TIA) Onset Date: 09/20/14 Current Visit: No Status: Acute - Plan REC: 1) monitor labs 2) continue acid suppression therapy 3) transfuse prn Physician Review Additional Text: Impression: Fatigue likely related to acute on chronic anemia Acute on chronic renal failure History of esophageal stenosis with dilation and mild dysphagia Fever likely UTI Rectocele Diabetes mellitus type 2, insulin-dependent Hypertension Atrial fibrillation on chronic anti coagulation therapy History CVA Carotid arterial disease Oral cancer History of breast cancer Plan: Fatigue likely related to acute on chronic anemia: Patient has received a total of 2 units of blood. Hemoglobin stable. Will continue to monitor hemoglobin. If hemoglobin less than 7.5 will reconsider giving another transfusion of blood. Will continue with chronic anti coagulation therapy for her history of atrial fibrillation and CVA. Her shop foreman and neurologist in [place] recommend not to discontinue aspirin and Xarelto. Case discussed with GI upon admission. No plan for intervention at this time. Patient with a recent EGD requiring esophageal dilation. Will ambulate with physical therapy today. Case discussed with criminal justice social worker and family to consider skilled placement. Patient agrees. Await acceptance to skilled facility in [place] near [facility] where she gets her most of her care. I will turn the service over to Dr. Zepeda tomorrow. I will go over the plan of care Fever likely UTI, urine culture positive for E coli-ESBL and Enterococcus: Will change to meropenem. Patient will need PICC line. Patient will require 7 days of IV antibiotic therapy. Acute on chronic renal failure: Dc IV fluids. Continue to monitor with nephrology History of esophageal stenosis with dilation and mild dysphagia: Patient has had major workup recently. Continue with PPI. Patient has required PEG tube in the last. No longer with PEG tube. Diabetes mellitus type 2, insulin-dependent: Will provide sliding scale. Hypertension: Will continue with home medication. Will monitor and address appropriately. Atrial fibrillation on chronic anti coagulation therapy: Patient and family report that it has been advised by her shop foreman and neurologist to continue with aspirin and Xarelto. Will discuss with cardiology. History CVA: Continue as above. Carotid arterial disease: Patient seen by CV surgery. Surgery is not recommended due to her chronic medical conditions. Patient high risk for surgery. Oral cancer: Patient is seen at [facility]. Patient high risk for surgery and possible radiation chemotherapy. Patient and family are looking in to radiation palliation. They do not plan to be aggressive on treatment. Rectocele: Will monitor this closely. Will continue with stool softener.
[2018-11-25] MEDS: ATORVASTATIN 40 MG TAB PO SCH (21:49)
[2018-11-25] MEDS: DOCUSATE NA/SENNA CONC 1 TAB PO SCH (21:49)
[2018-11-25 22:01] LABS: Albumin, (SPE) 2.7 g/dL (3.8-4.8); Alpha-1-Globulins 0.7 g/dL (0.2-0.3); Alpha-2-Globulins 0.8 g/dL (0.5-0.9); Gamma Globulins 1.1 g/dL (0.8-1.7); INTERPRETATION REPORT
[2018-11-26 05:23] LABS: Albumin 2.6 g/dL (3.4-5.0); Phosphorus 3.6 mg/dL (2.5-4.9); Potassium 4.4 mmol/L (3.5-5.1)
[2018-11-26] MEDS: LEVOTHYROXINE SOD 0.1 MG TAB PO SCH (06:14)
[2018-11-26] MEDS: INSULIN -REGULAR HUMAN 50 UNIT/0.5 ML ML SQ SCH ×2 (07:30→15:07)
[2018-11-26 08:46] VITALS: O2SAT 100
[2018-11-26] MEDS: CRANBERRY PO SCH (09:00)
[2018-11-26] MEDS: Meropenem 1,000 MG in NA CHLORIDE 0.9% 100 ML IV SCH (10:17)
[2018-11-26] MEDS: AMLODIPINE 10 MG TAB PO SCH (10:18)
[2018-11-26] MEDS: CARVEDILOL 6.25 MG TAB PO SCH (10:18)
[2018-11-26] MEDS: LACTOBACILLUS/ACIDOPHILUS TAB PO SCH (10:18)
[2018-11-26] MEDS: SERTRALINE HCL 50 MG TAB PO SCH (10:19)
[2018-11-26] MEDS: ASPIRIN EC 81 MG TAB PO SCH (10:19)
[2018-11-26] MEDS: GABAPENTIN 300 MG CAP PO SCH (10:19)
[2018-11-26] MEDS: MAGNESIUM OXIDE 400 MG TAB PO SCH (10:19)
[2018-11-26] MEDS: PANTOPRAZOLE 40MG TABLET PO SCH (10:19)
[2018-11-26 12:49] VITALS: BP 153/65; TEMP 99.3
--- NOTE | 2018-11-26 14:21 | P.PN ---
Subjective Date of Service: 11/26/18 Primary Care Provider: Dr. Mix; Cardiology-Dr. Rucker; Oncology-[facility] Chief Complaint: Fatigue Subjective: Improving no new complaints Cr normalized Hb stable now Ucx: E.coli ESBL, cont merrem cleared for discharge from nephrology point of view Physical Examination - Vital Signs Temperature: 99.3 F Blood Pressure: 153/65 Pulse: 63 Respirations: 20 Pulse Ox (%): 93 - Physical Exam General: Oriented x3 HEENT: Atraumatic Neck: Supple, Without JVD or thyroid abnormality Respiratory: Clear to auscultation bilaterally, Normal air movement Cardiovascular: No edema, Regular rate/rhythm, Normal S1 S2, No rubs, No murmurs Gastrointestinal: Normal bowel sounds, Soft and benign - Studies Microbiology Data (last 24 hrs): 11/20/18 11:16 Blood - Blood Aerobic Blood Culture - Final No growth in 5 days. 11/20/18 11:16 Blood - Blood Anaerobic Blood Culture - Final No growth in 5 days. 11/20/18 10:40 Blood - Blood Aerobic Blood Culture - Final No growth in 5 days. 11/20/18 10:40 Blood - Blood Anaerobic Blood Culture - Final No growth in 5 days. Medications List Reviewed: Yes Assessment And Plan - Current Problems (Diagnosis) (1) JASMINE (acute kidney injury) Onset Date: 11/23/18 Current Visit: Yes Status: Acute (2) Diabetes mellitus Onset Date: 09/20/14 Current Visit: No Status: Acute - Plan JASMINE on CKD resolved due to prereal azotemia US no [place] baseline Cr 1.1-1.3 UA +2 prot and +2 bld DM as per primary acute anemia due to rectocele/ hemorrhoids Hb stable transfuse to keep Hb >7.0 jaw cancer UTI E.coli ESBL HTN Controlled
--- NOTE | 2018-11-26 15:51 | P.DS ---
Admission Date: 11/21/18 Discharge Date: 11/26/18 Primary Care Provider: Dr. Mix; Cardiology-Dr. Rucker; Oncology-[facility] Disposition: TRANSFER TO SNF - MEDICAL Discharge Condition: GOOD Reason for Admission: Fatigue Consultations: Cardiology GI Nephrology - Problems (1) UTI (urinary tract infection) Onset Date: 11/23/18 Current Visit: Yes Status: Acute Qualifiers: Urinary tract infection type: acute cystitis Hematuria presence: without hematuria Qualified Code(s): N30.00 - Acute cystitis without hematuria (2) JASMINE (acute kidney injury) Onset Date: 11/23/18 Current Visit: Yes Status: Acute (3) Anemia due to multiple mechanisms Onset Date: 11/23/18 Current Visit: Yes Status: Acute (4) Fatigue Onset Date: 11/20/18 Current Visit: Yes Status: Acute Qualifiers: Fatigue type: chronic, unspecified Qualified Code(s): R53.82 - Chronic fatigue, unspecified (5) Rectocele Onset Date: 11/20/18 Current Visit: Yes Status: Chronic (6) Oral cancer Onset Date: 11/23/18 Current Visit: Yes Status: Chronic (7) Diabetes mellitus Onset Date: 09/20/14 Current Visit: No Status: Acute Qualifiers: Diabetes mellitus type: type 2 Diabetes mellitus ad terminal makeup operator insulin use: with ad terminal makeup operator use Diabetes mellitus complication status: without complication Qualified Code(s): E11.9 - Type 2 diabetes mellitus without complications; Z79.4 - jail (current) use of insulin (8) Hyperlipidemia Onset Date: 09/20/14 Current Visit: No Status: Chronic Qualifiers: Hyperlipidemia type: mixed hyperlipidemia Qualified Code(s): E78.2 - Mixed hyperlipidemia (9) Hypertension Onset Date: 09/20/14 Current Visit: No Status: Chronic Qualifiers: Hypertension type: essential hypertension Qualified Code(s): I10 - Essential (primary) hypertension (10) Hypothyroidism Onset Date: 09/20/14 Current Visit: No Status: Chronic Qualifiers: Hypothyroidism type: acquired Qualified Code(s): E03.9 - Hypothyroidism, unspecified Brief History of Present Illness: 78-year-old female brought in to the emergency room for fatigue. Patient has been reporting fatigue over the last several days. She apparently fell last night. Patient reported some rectal bleeding. This was noted by the daughter who was present. Daughter reports complicated history. Daughter reports patient has hemorrhoids and rectocele. Daughter also reports the patient has been hospitalized recently in September. She was life flighted for possible CVA. Patient with history of diabetes, hypertension, CVA, carotid arterial disease, atrial fibrillation, oral cancer and prior breast cancer. At her last hospitalization at [facility] she had a full assessment concerning her possible CVA. At that time she was assessed for dysphagia. She had endoscopy which showed esophageal stenosis. He had a dilation at that time. During that course she was found to have severe carotid arterial disease. This was addressed by CV surgery. CV surgery recommended no intervention due to her comorbidities. Cardiology recommended to continue with aspirin 81 mg daily and Xarelto 20 mg daily to prevent further CVA. Patient also has underlying oral cancer. Patient seen at [facility] for this. 2 surgeons have decline surgery because of her comorbidities. In the ER patient evaluated. Patient found to be severely anemic with a hemoglobin of 6.7. Prior hemoglobin in August was around 10. White count 15.6 , sodium 140, potassium 4.6, BUN of 26, creatinine 1.24 with a GFR of 29. Glucose 179. CT of the abdomen and pelvis showed left gluteal contusion. No significant other of other abnormality noted. ER performed evaluation of rectum. No hemorrhoids identified. No rectal bleeding identified. I was asked to admit the patient for possible further evaluation. When I saw the patient ER, she appeared dehydrated. Patient appeared comfortable. Hospital Course: Overall during the hospital stay patient remained stable Patient was initially admitted to the hospital for fatigue most likely secondary to her chronic anemia. Was found to have urinary tract infection along with acute kidney injury while here in the hospital. 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 Hemoglobin remained stable after that. She GI was consulted who recommended no further surgical procedure at this time. As patient recently had an EGD done about a month ago to evaluate for her dysphagia at that time she had dilation of her esophagus as well. Patient was tested for stool occult at bedside was positive however patient does have bleeding hemorrhoids and rectocele which could be causing false negative stool occult blood. Patient was monitored closely for her anemia and like mentioned before her hemoglobin remained stable after the initial blood transfusion. Patient was also started on Protonix and did well overall. Patient worked with physical therapy while here in the hospital patient has been very independent before coming to the hospital and thus was referred over to half-way facility for further care. Due to patient being anemic and dehydration patient was noted to have acute kidney injury. Nephrology was consulted who recommended the patient get IV fluids. Patient did improve on IV fluids and patient's BUN and creatinine improved while here in the hospital Patient while here in the hospital had a urinalysis done which was consistent with UTI positive for her multidrug resistant E. coli. Patient was started on IV meropenem and was transferred to a half-way facility condition her rest of the days. It was advised that patient check her UA in 1-2 days post discharge at the facility if stool consistent with multidrug resistant E. coli patient could be treated for 7 more days with meropenem. In terms of her chronic anti coagulation cardiology and neurology and [facility] is seen for the most part recommended the patient be continued on aspirin and sore also due to the recent history of CVA carotid artery disease and atrial fibrillation. At this time her benefit outweighs the risk of being on anti coagulation therapy. In terms of her oral cancer patient was seen at [facility] however it currently not a candidate for chemotherapy and radiation and thus came he is looking into getting palliative care for the patient. All other chronic conditions remained stable while patient was here in the hospital. Vital Signs/Physical Exam: Temp Pulse Resp BP Pulse Ox 99.3 F 63 20 153/65 H 93 11/26/18 14:20 11/26/18 14:20 11/26/18 14:20 11/26/18 14:20 11/26/18 14:20 Laboratory Data at Discharge: WBC 10.5 K/uL (4.3-10.9) 11/22/18 05:50 Hgb 8.1 g/dL (12.0-15.0) L 11/22/18 12:41 Hct 25.9 % (36.0-45.0) L 11/22/18 12:41 Plt Count 446 K/uL (152-406) H 11/22/18 05:50 Sodium 141 mmol/L (136-145) 11/26/18 04:50 Potassium 4.4 mmol/L (3.5-5.1) 11/26/18 04:50 BUN 16 mg/dL (7-18) 11/26/18 04:50 Creatinine 1.00 mg/dL (0.55-1.3) 11/26/18 04:50 Glucose 116 mg/dL (74-106) H 11/26/18 04:50 Phosphorus 3.6 mg/dL (2.5-4.9) 11/26/18 04:50 Magnesium 2.3 mg/dL (1.8-2.4) 11/22/18 05:50 Total Bilirubin 0.3 mg/dL (0.2-1.0) 11/19/18 12:09 AST 19 U/L (15-37) 11/19/18 12:09 ALT 14 U/L (12-78) 11/19/18 12:09 Alkaline Phosphatase 135 U/L (45-117) H 11/19/18 12:09 Lipase 126 U/L (73-393) 11/19/18 12:09 Home Medications: Amlodipine Besylate [Norvasc] 10 mg PO DAILY 11/19/18 Aspirin [Aspirin EC 81 MG] 81 mg PO BEDTIME 11/19/18 Atorvastatin Calcium [Lipitor] 40 mg PO BEDTIME 11/19/18 Carvedilol [Coreg*] 3.125 mg PO BID 11/19/18 Cranberry 25,400 mg PO DAILY 11/19/18 Diphenhydramine [Benadryl*] 25 mg PO BEDTIME 11/19/18 Gabapentin 300 mg PO BID 11/19/18 Insulin 70/30 NPH/Reg Human [Novolin 70/30*] 60 units SQ BEDTIME 11/19/18 Insulin 70/30 NPH/Reg Human [Novolin 70/30*] 80 units SQ DAILY 11/19/18 L.acidoph,Paracasei, B.lactis [Probiotic] 1 cap PO DAILY 11/19/18 Levothyroxine [Synthroid*] 100 mcg PO DAILY 11/19/18 Magnesium Oxide [Magnesium] 400 mg PO BID 11/19/18 Pantoprazole Sodium [Protonix] 40 mg PO BID 11/19/18 Rivaroxaban [Xarelto*] 20 mg PO BEDTIME 11/19/18 Senosides [Senokot*] 1 tab PO BEDTIME 11/19/18 Sertraline [Zoloft*] 25 mg PO BEDTIME 11/19/18 Meropenem [Merrem] 1 gm IV Q8H #12 vial 11/25/18 New Medications: Meropenem [Merrem] 1 gm IV Q8H #12 vial Patient Discharge Instructions: You will need to continue your IV meropenum for total of 7 days and have a repeated UA and if the UA is still positive then will need to continue for 7 more days of IV meropenum. Diet: Regular Activity: Ad hilda Followup: Inocencio Iverson MD [ACTIVE - CAN ADMIT] - (call to schedule appointment) Elbert Bey MD [ASSOCIATE-ACTIVE - CAN ADMIT] - 1 Week (call to schedule appoinment)
[2018-11-26] MEDS ORDERED: PANTOPRAZOLE 40MG TABLET PO SCH (16:30)
[2018-11-26] MEDS ORDERED: RIVAROXABAN 20 MG TABLET PO SCH (17:00)
== END 2018-11-26 16:53 | DRG 812 ==
LOC: ER 11:26 → ERHOLD 16:09 → 4TH 17:25 → OBSVTOIN 11-21 12:37
PROVIDERS: ADMIT Family Medicine; ATTEND Family Medicine
PROC: 30233N1 Transfusion of Nonautologous Red Blood Cells into Peripheral Vein, Percutaneous Approach (ICD-10-PCS; principal; 2018-11-20)
PROC: 02HV33Z Insertion of Infusion Device into Superior Vena Cava, Percutaneous Approach (ICD-10-PCS; 2018-11-23)
DX: D64.9 Anemia, unspecified (principal); S36.62XA Contusion of rectum, initial encounter; G45.1 Carotid artery syndrome (hemispheric); N17.9 Acute kidney failure, unspecified; N39.0 Urinary tract infection, site not specified; D63.8 Anemia in other chronic diseases classified elsewhere; K64.8 Other hemorrhoids; D50.0 Iron deficiency anemia secondary to blood loss (chronic); R13.10 Dysphagia, unspecified; N81.6 Rectocele; I48.2 Chronic atrial fibrillation; Z79.01 Long term (current) use of anticoagulants; Z86.73 Personal history of transient ischemic attack (TIA), and cerebral infarction without residual deficits; C06.9 Malignant neoplasm of mouth, unspecified; Z85.3 Personal history of malignant neoplasm of breast; R53.83 Other fatigue; R50.81 Fever presenting with conditions classified elsewhere; E78.5 Hyperlipidemia, unspecified; Z88.6 Allergy status to analgesic agent; Z88.5 Allergy status to narcotic agent; Z91.013 Allergy to seafood; K22.2 Esophageal obstruction; K21.9 Gastro-esophageal reflux disease without esophagitis; D72.829 Elevated white blood cell count, unspecified; K59.00 Constipation, unspecified; E11.22 Type 2 diabetes mellitus with diabetic chronic kidney disease; Z79.4 Long term (current) use of insulin; B95.2 Enterococcus as the cause of diseases classified elsewhere; B96.20 Unspecified Escherichia coli [E. coli] as the cause of diseases classified elsewhere; Z16.12 Extended spectrum beta lactamase (ESBL) resistance; Z66 Do not resuscitate; E11.40 Type 2 diabetes mellitus with diabetic neuropathy, unspecified; F32.9 Major depressive disorder, single episode, unspecified; E03.9 Hypothyroidism, unspecified; E87.6 Hypokalemia; E83.42 Hypomagnesemia; I10 Essential (primary) hypertension; W01.0XXA Fall on same level from slipping, tripping and stumbling without subsequent striking against object, initial encounter; Y93.89 Activity, other specified; Y92.013 Bedroom of single-family (private) house as the place of occurrence of the external cause
CPT/HCPCS: 36415; 36430; 71045; 74176; 76770; 80048; 80069; 80076; 81003; 81015; 82570; 82728; 82746; 82962; 83540; 83690; 83735; 84156; 84165; 84439; 84443; 84466; 85014; 85018; 85025; 86160; 86334; 86850; 86900; 86901; 87040; 87077; 87086; 87088; 87186; 96374; 96375; 97116; 97162; 97530; 99285; G0008; J0696; J1940; J2405; J2916; J7030; P9016; Q2035